=== PATIENT | male | born 1955 | race Caucasian/White ===

== ENCOUNTER 2017-04-09 12:58 | Inpatient (IN) | payer MEDICAID ==
[~2017-04-09] VITALS: Ht 172.7 cm; Wt 80.2 kg
[~2017-04-09 12:58] MED LIST: FLUC100T PO; NAPH1POW3 PO
[2017-04-09 14:18] LABS: BASOPHILS % (AUTO) 0 % (0-1); EOSINOPHILS % (AUTO) 0 % (0-6); HEMATOCRIT 29.2 % (42.0-52.0); HEMOGLOBIN 9.4 g/dl (14.0-17.9); LYMPHOCYTES # (AUTO) 1.1 X10'3 (1.1-4.8); LYMPHOCYTES % (AUTO) 1.8 % (21-51); MEAN CORPUSCULAR HEMOGLOBIN 27.9 PG (27.0-31.0); MEAN CORPUSCULAR HGB CONC 32.1 % (33.0-36.5); MEAN CORPUSCULAR VOLUME 86.9 FL (78-98); MEAN PLATELET VOLUME 7.8 FL (7.4-10.4); MONOCYTES # (AUTO) 0.3 X10'3 (0-0.9); MONOCYTES % (AUTO) 0.5 % (2-12); NEUTROPHILS # (AUTO) 57.1 X10'3 (1.8-7.7); NEUTROPHILS % (AUTO) 97.7 % (42-75); PLATELET COUNT 595 X10'3 (140-440); RED BLOOD COUNT 3.36 X10'6 (4.70-6.10); RED CELL DISTRIBUTION WIDTH 17.1 % (11.5-14.5)
[2017-04-09 14:22] LABS: WHITE BLOOD COUNT 58.5 X10'3 (4.5-11.0)
[2017-04-09 14:24] LABS: INR 1.1 INR; PARTIAL THROMBOPLASTIN TIME 31 SECONDS (22-32); PROTHROMBIN TIME 11.4 SECONDS (9.0-12.0)
[2017-04-09 14:29] LABS: ALANINE AMINOTRANSFERASE 43 U/L (12-78); ALBUMIN 2.1 G/DL (3.4-5.0); ALBUMIN/GLOBULIN RATIO 0.4 (1.1-1.5); ALKALINE PHOSPHATASE 242 IU/L (46-116); ANION GAP 22 (8-16); ASPARTATE AMINO TRANSFERASE 44 U/L (10-37); BILIRUBIN,TOTAL 0.5 MG/DL (0.1-1.0); BLOOD UREA NITROGEN 55 MG/DL (7-18); BUN/CREATININE RATIO 18.9 (5.4-32.0); CALCIUM 9.4 MG/DL (8.5-10.1); CHLORIDE 102 MMOL/L (99-107); CREATININE 2.91 MG/DL (0.60-1.10); GLUCOSE 126 MG/DL (70-104); POTASSIUM 3.2 MMOL/L (3.5-5.1); SODIUM 134 MMOL/L (135-145); TOTAL PROTEIN 7.1 G/DL (6.4-8.2); eGFR 22 ML/MIN
[2017-04-09 14:32] LABS: TOTAL CARBON DIOXIDE 9.7 MMOL/L (24-32)
[2017-04-09] MEDS ORDERED: ondansetron/PF 4mg/2ml inj IV ONE (14:50)
[2017-04-09] MEDS ORDERED: morphine 5 MG/ML injection IV ONE (14:50)
[2017-04-09] MEDS ORDERED: normal saline 1000ML IV soln IV ONE (14:50)
[2017-04-09 14:55] LABS: PLATELET ESTIMATE INCREASED; TOTAL CELLS COUNTED 100
[2017-04-09 14:56] LABS: ANISOCYTOSIS 1+; TOXIC GRANULATION 2+
[2017-04-09 14:59] LABS: ACANTHOCYTES 2+; BURR CELLS FEW; SCHISTOCYTES FEW; TARGET CELLS FEW
[2017-04-09] MEDS ORDERED: piperacillin/tazo 3.375gm/50ml 50 ML IV ONE (15:00)
[2017-04-09] MEDS ORDERED: IBUP-1984 PO (15:47)
[2017-04-09 16:17] LABS: OCCULT BLOOD STOOL NEGATIVE (Neg)
[2017-04-09 16:23] LABS: MAGNESIUM 2.3 MG/DL (1.5-2.4)
[2017-04-09] MEDS: K and/or MAG REPLACEMENT MC SCH (17:00)
[2017-04-09] MEDS ORDERED: acetaminophen 325mg tablet PO PRN (17:00)
[2017-04-09] MEDS ORDERED: HYDROcodone/acetaminophen 5mg/325mg tablet PO PRN (17:00)
[2017-04-09] MEDS ORDERED: diphenhydrAMINE 25mg capsule PO PRN (17:00)
[2017-04-09] MEDS ORDERED: ondansetron/PF 4mg/2ml inj IV PRN ×3 (17:00→23:20)
[2017-04-09] MEDS ORDERED: diphenhydrAMINE 50 mg/ml inj IV PRN (17:00)
[2017-04-09] MEDS ORDERED: potassium Cl 40MEQ/NS 500ml 500 ML IV PRN (17:00)
[2017-04-09] MEDS ORDERED: morphine 5 MG/ML injection IV PRN ×3 (17:00→20:25)
[2017-04-09] MEDS ORDERED: mag hydrox/Alum hydrox/simeth 30ml oral suspension PO PRN (17:00)
[2017-04-09] MEDS ORDERED: acetaminophen 650mg rectal suppository RC PRN (17:00)
[2017-04-09] MEDS ORDERED: potassium Cl 20 mEq SR tablet PO PRN (17:00)
[2017-04-09] MEDS ORDERED: magnesium hydroxide 30ml (MOM) UD suspension PO PRN (17:00)
[2017-04-09] MEDS ORDERED: metoclopramide 5 mg/ml inj IV PRN (17:00)
[2017-04-09] MEDS ORDERED: HYDROcodone/acetaminophen 10/325mg tab PO PRN (17:00)
[2017-04-09] MEDS: normal saline 1000ml 1,000 ML IV SCH (17:32)
[2017-04-09] MEDS: pantoprazole 40 MG vial IV SCH (17:33)
[2017-04-09 17:43] LABS: PHOSPHORUS 4.7 MG/DL (2.3-4.5)
[2017-04-09 18:02] LABS: C-REACTIVE PROTEIN 40.88 MG/DL (0.0-0.5)
[2017-04-09] MEDS: morphine 5 MG/ML injection IV PRN (18:05)
[2017-04-09 18:58] LABS: CLARITY,URINE SLIGHTLY CLOUDY (Clear); COLOR,URINE YELLOW (Yellow); GLUCOSE, URINE NEGATIVE (Neg); KETONES,URINE NEGATIVE (Neg); LEUKOCYTE ESTERASE ,URINE SMALL (Neg); NITRITES, URINE NEGATIVE (Neg); OCCULT BLOOD,URINE MODERATE (Neg); PH,URINE 5.5 (4.8-8.0); PROTEIN,URINE 30 mg/dl (Neg); UROBILINOGEN,URINE 0.2 E.U/dL (0.2-1.0)
[2017-04-09] MEDS ORDERED: MULT-38 PO (19:07)
[2017-04-09] MEDS ORDERED: IBUP-1985 PO (19:07)
[2017-04-09 19:11] LABS: UA COLLECTION TYPE URINAL
[2017-04-09 19:15] LABS: SQUAMOUS EPITHELIAL CELL,UR FEW /LPF (FEW)
[2017-04-09 19:18] LABS: MUCUS STRANDS FEW /LPF (Neg)
[2017-04-09 19:19] LABS: BACTERIA,URINE FEW /HPF (Neg); RBC,URINE 0-2 /HPF (0-2); WBC,URINE 20-30 /HPF (0-4)
[2017-04-09 20:00] VITALS: BP 125/57
[2017-04-09] MEDS ORDERED: piperacillin/tazo 3.375gm/50ml 50 ML IV SCH (20:00)
[2017-04-09] MEDS: docusate sod 100mg capsule PO SCH (20:00)
[2017-04-09] MEDS ORDERED: piperacillin/tazo 4.5gm/100ml 100 ML IV SCH (20:00)
[2017-04-09] MEDS ORDERED: ringers solution, lacted 1,000 ML IV SCH (20:24)
[2017-04-09] MEDS ORDERED: ringers solution, lacted 1,000 ML IV ONE (20:24)
[2017-04-09] MEDS ORDERED: labetalol 20mg/4ml (5mg/ml) syringe IV PRN (20:25)
[2017-04-09] MEDS ORDERED: fentaNYL/PF 50MCG/1 ML 2ML syringe IV PRN ×2 (20:25)
[2017-04-09] MEDS ORDERED: hydrALAZINE 20mg/ml inj. IV PRN (20:25)
[2017-04-09] MEDS: clindamycin 600mg/D5W 50ml 50 ML IV SCH (20:39)
[2017-04-09] MEDS ORDERED: temazepam 15mg capsule PO PRN (21:00)
[2017-04-09] MEDS ORDERED: fentaNYL/PF 50MCG/1 ML 2ML syringe ONE ×2 (21:28)
[2017-04-09] MEDS ORDERED: midazolam 2 mg/2 ml injection ONE (21:28)
[2017-04-09] MEDS ORDERED: sevoflurane 250ml liquid IH ONE ×2 (21:40)
[2017-04-09] MEDS ORDERED: dexamethasone sod phosphate 4mg/ml inj. ONE (21:55)
[2017-04-09 23:05] VITALS: BP 74/60
[2017-04-09 23:15] VITALS: BP 105/56
[2017-04-09] MEDS ORDERED: potassium CL 20mEq in D5-1/2NS 1,000 ML IV SCH (23:17)
[2017-04-09 23:25] VITALS: BP 112/68
[2017-04-09 23:35] VITALS: BP 115/66
[2017-04-10] VITALS (30 sets, daily range): BP systolic 78–116; BP diastolic 52–73
[2017-04-10 00:05] LABS: ABG HCO3 5.3 mmol/L (22.0-26.0); ABG OXYGEN SATURATION 90.9 % (95-98); ABG PCO2 (T) 15.3 mmHg (35.0-48.0); ABG PH (T) 7.145 (7.350-7.450); ABG PO2 (T) 68.1 mmHg (83-108); ALLEN'S TEST Positive; FCOHb 0.3 % (0.5-1.5); FLOW 2 L/min; FMetHb 0.3 % (0.3-1.12); FO2Hb 90.4 % (94-100); PATIENT TEMPERATURE 35.6; RESPIRATORY RATE (OBSERVED) 18 b/min; TOTAL HEMOGLOBIN 9.4 G/dl (14.0-18.0)
[2017-04-10] MEDS ORDERED: potassium Cl 20mEq/100mL bag 100 ML IV ONE (00:33)
[2017-04-10] MEDS ORDERED: piperacillin-tazo 2.25gm/50ml 50 ML IV ONE (00:34)
[2017-04-10 00:46] LABS: BASOPHILS # (AUTO) 0.2 X10'3 (0-0.2); BASOPHILS % (AUTO) 0.4 % (0-1); EOSINOPHILS # (AUTO) 0.1 X10'3 (0-0.9); EOSINOPHILS % (AUTO) 0.2 % (0-6); HEMATOCRIT 27.3 % (42.0-52.0); HEMOGLOBIN 9.3 g/dl (14.0-17.9); MEAN CORPUSCULAR HEMOGLOBIN 29.8 PG (27.0-31.0); MEAN CORPUSCULAR HGB CONC 34.1 % (33.0-36.5); MEAN CORPUSCULAR VOLUME 87.2 FL (78-98); MEAN PLATELET VOLUME 8.4 FL (7.4-10.4); MONOCYTES # (AUTO) 0.9 X10'3 (0-0.9); MONOCYTES % (AUTO) 1.6 % (2-12); NEUTROPHILS # (AUTO) 51.2 X10'3 (1.8-7.7); NEUTROPHILS % (AUTO) 90.8 % (42-75); PLATELET COUNT 492 X10'3 (140-440); RED BLOOD COUNT 3.13 X10'6 (4.70-6.10); RED CELL DISTRIBUTION WIDTH 15.6 % (11.5-14.5)
[2017-04-10 00:52] LABS: WHITE BLOOD COUNT 56.5 X10'3 (4.5-11.0)
[2017-04-10 01:00] LABS: ALANINE AMINOTRANSFERASE 52 U/L (12-78); ALBUMIN 1.6 G/DL (3.4-5.0); ALBUMIN/GLOBULIN RATIO 0.4 (1.1-1.5); ALKALINE PHOSPHATASE 188 IU/L (46-116); ANION GAP 23 (8-16); ASPARTATE AMINO TRANSFERASE 81 U/L (10-37); BILIRUBIN,TOTAL 0.5 MG/DL (0.1-1.0); BLOOD UREA NITROGEN 59 MG/DL (7-18); BUN/CREATININE RATIO 20.5 (5.4-32.0); CALCIUM 8.1 MG/DL (8.5-10.1); CHLORIDE 106 MMOL/L (99-107); CREATININE 2.88 MG/DL (0.60-1.10); GLUCOSE 109 MG/DL (70-104); POTASSIUM 3.2 MMOL/L (3.5-5.1); SODIUM 136 MMOL/L (135-145); TOTAL PROTEIN 5.9 G/DL (6.4-8.2); eGFR 22 ML/MIN
[2017-04-10] MEDS: piperacillin-tazo 2.25gm/50ml 50 ML IV SCH ×3 (01:00→16:23)
[2017-04-10 01:02] LABS: TOTAL CARBON DIOXIDE 7.5 MMOL/L (24-32)
[2017-04-10] MEDS ORDERED: sodium bicarbonate (8.4%) inj. 150 MEQ in dextrose 5%-water 1,000 ML IV SCH (01:05)
[2017-04-10] MEDS ORDERED: sodium bicarbonate (8.4%) 1 mEq/ml syringe IV ONE ×3 (01:05→08:00)
[2017-04-10] MEDS ORDERED: sodium bicarbonate 1 MEQ/1 ml inj ONE (01:09)
[2017-04-10 01:18] LABS: TOTAL CELLS COUNTED 100
[2017-04-10 01:19] LABS: ACANTHOCYTES 1+; ANISOCYTOSIS 1+; BURR CELLS 3+; PLATELET ESTIMATE INCREASED; SCHISTOCYTES FEW; TOXIC GRANULATION 2+
[2017-04-10] MEDS ORDERED: potassium Cl 40MEQ/NS 500ml 500 ML IV PRN ×2 (02:05)
[2017-04-10] MEDS ORDERED: potassium Cl 20 mEq SR tablet PO PRN ×2 (02:05)
[2017-04-10] MEDS ORDERED: potassium Cl 40MEQ/250ML bag 250 ML IV ONE (02:57)
[2017-04-10] MEDS: normal saline 1000ml 1,000 ML IV SCH ×3 (03:00→23:00)
[2017-04-10 04:50] LABS: ABG BASE EXCESS -19.7 mmol/L (-2.0-3.0); ABG HCO3 6.6 mmol/L (22.0-26.0); ABG OXYGEN SATURATION 94.3 % (95-98); ABG PCO2 (T) 17.4 mmHg (35.0-48.0); ABG PH (T) 7.194 (7.350-7.450); ABG PO2 (T) 78.6 mmHg (83-108); ALLEN'S TEST Positive; FCOHb 0.3 % (0.5-1.5); FLOW 2 L/min; PATIENT TEMPERATURE 36.4; RESPIRATORY RATE (OBSERVED) 22 b/min; TOTAL HEMOGLOBIN 8.9 G/dl (14.0-18.0)
[2017-04-10 06:08] LABS: HEMATOCRIT 25.8 % (42.0-52.0); HEMOGLOBIN 8.4 g/dl (14.0-17.9); MEAN CORPUSCULAR HEMOGLOBIN 28.3 PG (27.0-31.0); MEAN CORPUSCULAR HGB CONC 32.4 % (33.0-36.5); MEAN CORPUSCULAR VOLUME 87.4 FL (78-98); PLATELET COUNT 449 X10'3 (140-440); RED BLOOD COUNT 2.95 X10'6 (4.70-6.10); RED CELL DISTRIBUTION WIDTH 16.6 % (11.5-14.5)
[2017-04-10 06:22] LABS: WHITE BLOOD COUNT 53.5 X10'3 (4.5-11.0)
[2017-04-10 07:00] LABS: ALANINE AMINOTRANSFERASE 84 U/L (12-78); ALBUMIN 1.4 G/DL (3.4-5.0); ALBUMIN/GLOBULIN RATIO 0.4 (1.1-1.5); ALKALINE PHOSPHATASE 158 IU/L (46-116); ANION GAP 24 (8-16); ASPARTATE AMINO TRANSFERASE 141 U/L (10-37); BILIRUBIN,TOTAL 0.5 MG/DL (0.1-1.0); BLOOD UREA NITROGEN 62 MG/DL (7-18); BUN/CREATININE RATIO 21.5 (5.4-32.0); CALCIUM 7.4 MG/DL (8.5-10.1); CHLORIDE 108 MMOL/L (99-107); CREATININE 2.88 MG/DL (0.60-1.10); GLUCOSE 151 MG/DL (70-104); MAGNESIUM 2.3 MG/DL (1.5-2.4); POTASSIUM 3.5 MMOL/L (3.5-5.1); SODIUM 142 MMOL/L (135-145); TOTAL PROTEIN 5.4 G/DL (6.4-8.2); eGFR 22 ML/MIN
[2017-04-10 07:19] LABS: TOTAL CARBON DIOXIDE 10.5 MMOL/L (24-32)
[2017-04-10] MEDS ORDERED: albumin (human) 25% 100 ML IV solution IV ONE (07:45)
[2017-04-10 07:50] LABS: OSMOLALITY 311 MOSM/K (280-300)
[2017-04-10 07:52] LABS: ANISOCYTOSIS 1+; BANDS% (MANUAL) 26 % (0-10); LYMPHOCYTES % (MANUAL) 1 % (21-51); METAMYLEOCYTES% (MANUAL) 2 % (0-0); MONOCYTES % (MANUAL) 1 % (2-12); NEUTROPHILS % (MANUAL) 70 % (42-75); PLATELET ESTIMATE INCREASED; TOTAL CELLS COUNTED 100
[2017-04-10 07:53] LABS: BURR CELLS 2+; TOXIC GRANULATION 1+
[2017-04-10] MEDS: K and/or MAG REPLACEMENT MC SCH ×2 (08:00)
[2017-04-10] MEDS ORDERED: vancomycin/NS 1 GM ADD-VANTAGE 250 ML IV SCH (08:00)
[2017-04-10] MEDS: clindamycin 600mg/D5W 50ml 50 ML IV SCH ×2 (08:21→20:30)
[2017-04-10] MEDS: docusate sod 100mg capsule PO SCH ×2 (08:21→20:30)
[2017-04-10] MEDS: pantoprazole 40 MG vial IV SCH (08:21)
[2017-04-10] MEDS: amiodarone/D5 360MG/200ML BAG 200 ML IV SCH ×3 (09:40→21:39)
[2017-04-10] MEDS: sodium bicarbonate (8.4%) inj. 150 MEQ in dextrose 5%-water 1,000 ML IV SCH ×3 (10:26→19:18)
[2017-04-10] MEDS ORDERED: fluconazole-Diflucan 200mg/NS 100 ML IV SCH (12:25)
[2017-04-10] MEDS ORDERED: albumin (Human) 5% 250 ML IV solution IV STA (12:43)
[2017-04-10] MEDS: morphine 5 MG/ML injection IV PRN (14:31)
[2017-04-10] MEDS ORDERED: pneumococcal 23-VAL P-sac vacc 25 mcg/0.5ml vial IMVAC ONE (14:45)
[2017-04-10] MEDS ORDERED: vancomycin/NS 1 GM ADD-VANTAGE 250 ML IV PRN (14:50)
[2017-04-10] MEDS ORDERED: FLU VACC QS2017-18 36MOS UP/PF 60 MCG/0.5 ML SYRINGE IMVAC ONE (15:10)
[2017-04-10] MEDS: linezolid 600mg/300ml PREMIX 300 ML IV SCH ×2 (16:23→20:30)
[2017-04-10] MEDS: NORepinephrine 8mg/ 250ml NS 250 ML IV SCH ×2 (16:54→22:23)
[2017-04-10 17:16] LABS: ABG BASE EXCESS -10.4 mmol/L (-2.0-3.0); ABG HCO3 13.2 mmol/L (22.0-26.0); ABG OXYGEN SATURATION 94.6 % (95-98); ABG PCO2 (T) 21.3 mmHg (35.0-48.0); ABG PH (T) 7.409 (7.350-7.450); ABG PO2 (T) 72.1 mmHg (83-108); ALLEN'S TEST Positive; FCOHb 0.5 % (0.5-1.5); FMetHb 0.1 % (0.3-1.12); PATIENT TEMPERATURE 36.6
[2017-04-10 17:25] LABS: BASOPHILS % (AUTO) 0.1 % (0-1); EOSINOPHILS % (AUTO) 0 % (0-6); LYMPHOCYTES # (AUTO) 1.4 X10'3 (1.1-4.8); LYMPHOCYTES % (AUTO) 4.3 % (21-51); MEAN CORPUSCULAR HEMOGLOBIN 27.9 PG (27.0-31.0); MEAN CORPUSCULAR HGB CONC 32.6 % (33.0-36.5); MEAN CORPUSCULAR VOLUME 85.8 FL (78-98); MEAN PLATELET VOLUME 7.5 FL (7.4-10.4); MONOCYTES # (AUTO) 0.1 X10'3 (0-0.9); MONOCYTES % (AUTO) 0.2 % (2-12); NEUTROPHILS # (AUTO) 30.4 X10'3 (1.8-7.7); NEUTROPHILS % (AUTO) 95.4 % (42-75); PLATELET COUNT 361 X10'3 (140-440); RED CELL DISTRIBUTION WIDTH 16.8 % (11.5-14.5)
[2017-04-10 17:31] LABS: HEMATOCRIT 21.4 % (42.0-52.0); WHITE BLOOD COUNT 31.9 X10'3 (4.5-11.0)
[2017-04-10 17:39] LABS: ALANINE AMINOTRANSFERASE 80 U/L (12-78); ALBUMIN 2.1 G/DL (3.4-5.0); ALBUMIN/GLOBULIN RATIO 0.6 (1.1-1.5); ALKALINE PHOSPHATASE 126 IU/L (46-116); ANION GAP 21 (8-16); ASPARTATE AMINO TRANSFERASE 134 U/L (10-37); BILIRUBIN,TOTAL 0.5 MG/DL (0.1-1.0); BLOOD UREA NITROGEN 66 MG/DL (7-18); BUN/CREATININE RATIO 22.7 (5.4-32.0); CALCIUM 6.5 MG/DL (8.5-10.1); CHLORIDE 110 MMOL/L (99-107); CREATININE 2.91 MG/DL (0.60-1.10); GLUCOSE 247 MG/DL (70-104); MAGNESIUM 2.2 MG/DL (1.5-2.4); SODIUM 148 MMOL/L (135-145); TOTAL CARBON DIOXIDE 17.3 MMOL/L (24-32); TOTAL PROTEIN 5.4 G/DL (6.4-8.2); eGFR 22 ML/MIN
[2017-04-10 17:42] LABS: POTASSIUM 2.6 MMOL/L (3.5-5.1)
[2017-04-10] MEDS ORDERED: NORepinephrine 1 mg/ml inj IV ONE (18:35)
[2017-04-10] MEDS: vasopressin inj. 60 UNIT in normal saline 100ml IV soln 97 ML IV SCH (19:18)
[2017-04-10] MEDS: potassium Cl 40MEQ/250ML bag 250 ML IV PRN ×2 (19:37→21:39)
[2017-04-10 22:56] LABS: ABG BASE EXCESS -10.6 mmol/L (-2.0-3.0); ABG HCO3 13.1 mmol/L (22.0-26.0); ABG OXYGEN SATURATION 92.5 % (95-98); ABG PH (T) 7.372 (7.350-7.450); ABG PO2 (T) 66.9 mmHg (83-108); ALLEN'S TEST Positive; FCOHb 0.3 % (0.5-1.5); FO2Hb 92.2 % (94-100); RESPIRATORY RATE (OBSERVED) 18 b/min
[2017-04-11] VITALS (24 sets, daily range): BP systolic 99–132; BP diastolic 64–87
[2017-04-11] MEDS: piperacillin-tazo 2.25gm/50ml 50 ML IV SCH ×2 (01:50→07:58)
[2017-04-11 02:40] LABS: BASOPHILS % (AUTO) 0 % (0-1); EOSINOPHILS # (AUTO) 0.4 X10'3 (0-0.9); EOSINOPHILS % (AUTO) 1.5 % (0-6); HEMATOCRIT 29.2 % (42.0-52.0); HEMOGLOBIN 9.6 g/dl (14.0-17.9); LYMPHOCYTES # (AUTO) 0.6 X10'3 (1.1-4.8); LYMPHOCYTES % (AUTO) 2.2 % (21-51); MEAN CORPUSCULAR HEMOGLOBIN 27.8 PG (27.0-31.0); MEAN CORPUSCULAR HGB CONC 32.8 % (33.0-36.5); MEAN CORPUSCULAR VOLUME 84.8 FL (78-98); MEAN PLATELET VOLUME 8.3 FL (7.4-10.4); MONOCYTES # (AUTO) 0.3 X10'3 (0-0.9); MONOCYTES % (AUTO) 0.9 % (2-12); NEUTROPHILS # (AUTO) 27.5 X10'3 (1.8-7.7); NEUTROPHILS % (AUTO) 95.4 % (42-75); PLATELET COUNT 352 X10'3 (140-440); RED BLOOD COUNT 3.44 X10'6 (4.70-6.10); RED CELL DISTRIBUTION WIDTH 17.2 % (11.5-14.5)
[2017-04-11 02:55] LABS: ALANINE AMINOTRANSFERASE 115 U/L (12-78); ALBUMIN 2.1 G/DL (3.4-5.0); ALBUMIN/GLOBULIN RATIO 0.6 (1.1-1.5); ALKALINE PHOSPHATASE 160 IU/L (46-116); ANION GAP 19 (8-16); ASPARTATE AMINO TRANSFERASE 153 U/L (10-37); BILIRUBIN,TOTAL 0.7 MG/DL (0.1-1.0); BLOOD UREA NITROGEN 65 MG/DL (7-18); BUN/CREATININE RATIO 24.2 (5.4-32.0); CALCIUM 6.5 MG/DL (8.5-10.1); CHLORIDE 109 MMOL/L (99-107); CREATININE 2.69 MG/DL (0.60-1.10); GLUCOSE 389 MG/DL (70-104); MAGNESIUM 2.3 MG/DL (1.5-2.4); SODIUM 144 MMOL/L (135-145); TOTAL CARBON DIOXIDE 16.4 MMOL/L (24-32); TOTAL PROTEIN 5.7 G/DL (6.4-8.2); VANCOMYCIN,RANDOM 18.2 UG/ML; eGFR 24 ML/MIN
[2017-04-11 02:59] LABS: WHITE BLOOD COUNT 28.9 X10'3 (4.5-11.0)
[2017-04-11] MEDS: VANCOMYCIN LEVEL IV SCH (03:00)
[2017-04-11] MEDS ORDERED: potassium Cl 40MEQ/250ML bag 500 ML IV ONE (03:02)
[2017-04-11 03:09] LABS: TOTAL CELLS COUNTED 100
[2017-04-11 03:10] LABS: ANISOCYTOSIS 1+; BURR CELLS 1+; PLATELET ESTIMATE NORMAL; TARGET CELLS 1+; TOXIC GRANULATION 1+
[2017-04-11] MEDS: sodium bicarbonate (8.4%) inj. 150 MEQ in dextrose 5%-water 1,000 ML IV SCH ×2 (03:10→12:16)
[2017-04-11] MEDS: potassium Cl 40MEQ/250ML bag 250 ML IV PRN (05:23)
[2017-04-11] MEDS: NORepinephrine 8mg/ 250ml NS 250 ML IV SCH (05:24)
[2017-04-11] MEDS: pantoprazole 40 MG vial IV SCH (07:57)
[2017-04-11] MEDS: linezolid 600mg/300ml PREMIX 300 ML IV SCH (07:58)
[2017-04-11] MEDS: clindamycin 600mg/D5W 50ml 50 ML IV SCH (07:58)
[2017-04-11] MEDS: K and/or MAG REPLACEMENT MC SCH (08:00)
[2017-04-11] MEDS: docusate sod 100mg capsule PO SCH ×2 (08:00→20:32)
[2017-04-11] MEDS ORDERED: fluconazole-Diflucan 100MG/NS 50 ML IV SCH (08:00)
[2017-04-11] MEDS: piperacillin/tazo 3.375gm/50ml 50 ML IV SCH ×2 (08:20→16:05)
[2017-04-11] MEDS: morphine 5 MG/ML injection IV PRN ×3 (08:37→20:32)
[2017-04-11] MEDS: amiodarone/D5 360MG/200ML BAG 200 ML IV SCH ×2 (08:38→23:26)
[2017-04-11] MEDS ORDERED: glucagon, human recombinant 1mg kit SUBCUT PRN (11:25)
[2017-04-11] MEDS ORDERED: insulin Lispro (HumaLOG) vial - multi-dose SQ SCH (11:25)
[2017-04-11] MEDS ORDERED: dextrose 50%-water 50ml dispensing syringe IV PRN ×2 (11:25)
[2017-04-11] MEDS ORDERED: dextrose ORAL solution 15 GM/59 ML bottle PO PRN ×2 (11:25)
[2017-04-11] MEDS ORDERED: HYDROmorphone 1 mg/ml syringe IV PRN ×2 (13:30→19:55)
[2017-04-11] MEDS ORDERED: LIDOcaine 1% (10mg/ml) 2ml vial ONE (14:32)
[2017-04-11] MEDS ORDERED: clindamycin phosphate 150mg/ml inj. ONE (14:32)
[2017-04-11] MEDS ORDERED: gentamicin 40 MG/1 ML inj ONE (14:32)
[2017-04-11] MEDS: clindamycin-Cleocin 900mg/D5W 50 ML IV SCH ×2 (15:21→16:00)
[2017-04-11] MEDS: normal saline 1000ml 1,000 ML IV SCH (16:05)
[2017-04-11 16:31] LABS: HEMOGLOBIN A1C 6.4 % (4.5-6.2)
[2017-04-11] MEDS: vasopressin inj. 60 UNIT in normal saline 100ml IV soln 97 ML IV SCH (16:36)
[2017-04-11 16:57] LABS: HIV ANTIBODY 1&2 RAPID NON-REACTIVE (Neg)
[2017-04-11] MEDS ORDERED: albuterol 2.5 MG/3 ML nebule NEB ONE (17:05)
[2017-04-11 17:30] LABS: POTASSIUM 2.8 MMOL/L (3.5-5.1)
[2017-04-11] MEDS ORDERED: furosemide 20 MG/2 ML vial IV ONE (17:50)
[2017-04-11 18:16] LABS: CREATINE KINASE 653 U/L (39-308)
[2017-04-11] MEDS ORDERED: fat emulsion IV 100 ML, MVI, adult No.4 with vit. K 10 ML, Trace element-5 inj. 1 ML in... IV SCH ×4 (20:00)
[2017-04-11] MEDS ORDERED: morphine 5 MG/ML injection IV PRN (20:10)
[2017-04-11] MEDS: potassium Cl 20 mEq SR tablet PO PRN (20:32)
[2017-04-11] MEDS: lactobacillus rhamnosus 10,000 MMU CELLS/CAPSULE PO SCH (20:32)
[2017-04-11] MEDS: insulin glargine (Lantus) pen - multi-dose SQ SCH (22:33)
[2017-04-12] VITALS (21 sets, daily range): BP systolic 90–139; BP diastolic 61–89
[2017-04-12] MEDS: piperacillin/tazo 3.375gm/50ml 50 ML IV SCH ×3 (00:35→15:12)
[2017-04-12] MEDS: clindamycin-Cleocin 900mg/D5W 50 ML IV SCH ×3 (00:36→15:13)
[2017-04-12 02:57] LABS: BASOPHILS % (AUTO) 0 % (0-1); EOSINOPHILS % (AUTO) 0.1 % (0-6); HEMATOCRIT 27.5 % (42.0-52.0); LYMPHOCYTES % (AUTO) 5.1 % (21-51); MEAN CORPUSCULAR HEMOGLOBIN 27.8 PG (27.0-31.0); MEAN CORPUSCULAR HGB CONC 32.7 % (33.0-36.5); MEAN CORPUSCULAR VOLUME 84.9 FL (78-98); MEAN PLATELET VOLUME 8.4 FL (7.4-10.4); MONOCYTES % (AUTO) 0.1 % (2-12); NEUTROPHILS # (AUTO) 19.1 X10'3 (1.8-7.7); NEUTROPHILS % (AUTO) 94.7 % (42-75); PLATELET COUNT 283 X10'3 (140-440); RED BLOOD COUNT 3.23 X10'6 (4.70-6.10); WHITE BLOOD COUNT 20.2 X10'3 (4.5-11.0)
[2017-04-12] MEDS: VANCOMYCIN LEVEL IV SCH (03:00)
[2017-04-12 03:11] LABS: ALANINE AMINOTRANSFERASE 166 U/L (12-78); ALBUMIN 1.8 G/DL (3.4-5.0); ALBUMIN/GLOBULIN RATIO 0.5 (1.1-1.5); ALKALINE PHOSPHATASE 172 IU/L (46-116); ANION GAP 14 (8-16); ASPARTATE AMINO TRANSFERASE 138 U/L (10-37); BILIRUBIN,TOTAL 0.4 MG/DL (0.1-1.0); BLOOD UREA NITROGEN 55 MG/DL (7-18); BUN/CREATININE RATIO 25.3 (5.4-32.0); CALCIUM 7.3 MG/DL (8.5-10.1); CHLORIDE 114 MMOL/L (99-107); CREATININE 2.17 MG/DL (0.60-1.10); GLUCOSE 131 MG/DL (70-104); MAGNESIUM 2.2 MG/DL (1.5-2.4); PHOSPHORUS 3.7 MG/DL (2.3-4.5); SODIUM 151 MMOL/L (135-145); TOTAL CARBON DIOXIDE 22.6 MMOL/L (24-32); TOTAL PROTEIN 5.4 G/DL (6.4-8.2); VANCOMYCIN,RANDOM 10.5 UG/ML; eGFR 31 ML/MIN
[2017-04-12 03:13] LABS: POTASSIUM 2.6 MMOL/L (3.5-5.1)
[2017-04-12] MEDS: potassium Cl 20 mEq SR tablet PO PRN (03:27)
[2017-04-12] MEDS: insulin regular, human vial - multi-dose SQ SCH ×3 (03:53→20:51)
[2017-04-12 04:18] LABS: ANISOCYTOSIS 1+; PLATELET ESTIMATE NORMAL; TOTAL CELLS COUNTED 100
[2017-04-12 04:19] LABS: BURR CELLS 1+; TARGET CELLS 1+; TOXIC GRANULATION 1+
[2017-04-12] MEDS: normal saline 1000ml 1,000 ML IV SCH ×2 (05:00→05:04)
[2017-04-12] MEDS: morphine 5 MG/ML injection IV PRN (05:41)
[2017-04-12] MEDS: pantoprazole 40 MG vial IV SCH (07:38)
[2017-04-12] MEDS: lactobacillus rhamnosus 10,000 MMU CELLS/CAPSULE PO SCH ×2 (07:38→20:00)
[2017-04-12] MEDS: docusate sod 100mg capsule PO SCH ×2 (07:38→20:00)
[2017-04-12] MEDS: K and/or MAG REPLACEMENT MC SCH (08:00)
[2017-04-12] MEDS: potassium Cl 40MEQ/NS 500ml 500 ML IV PRN ×2 (08:16→13:00)
[2017-04-12] MEDS ORDERED: vancomycin/NS 1 GM ADD-VANTAGE 250 ML IV ONE (09:25)
[2017-04-12 09:41] LABS: ABG BASE EXCESS -4.7 mmol/L (-2.0-3.0); ABG HCO3 18.3 mmol/L (22.0-26.0); ABG OXYGEN SATURATION 93.3 % (95-98); ABG PCO2 (T) 26.7 mmHg (35.0-48.0); ABG PH (T) 7.451 (7.350-7.450); ABG PO2 (T) 69.2 mmHg (83-108); ALLEN'S TEST Positive; FCOHb 0.3 % (0.5-1.5); FMetHb 0.1 % (0.3-1.12); FO2Hb 92.9 % (94-100); PATIENT TEMPERATURE 36.6; RESPIRATORY RATE (OBSERVED) 18 b/min; TOTAL HEMOGLOBIN 10.4 G/dl (14.0-18.0)
[2017-04-12 12:53] LABS: POTASSIUM 3.1 MMOL/L (3.5-5.1)
[2017-04-12] MEDS ORDERED: gentamicin 40 MG/1 ML inj ONE (16:15)
[2017-04-12] MEDS ORDERED: clindamycin phosphate 150mg/ml inj. ONE (16:15)
[2017-04-12] MEDS ORDERED: morphine sulfate 8 MG/ML SYRINGE IV PRN (16:25)
[2017-04-12] MEDS ORDERED: Dextrose 10%-water IV solution 1,000 ML IV PRN (16:38)
[2017-04-12] MEDS: morphine sulfate 8 MG/ML SYRINGE IV PRN ×2 (16:46→22:15)
[2017-04-12] MEDS ORDERED: [UNRECOGNIZED DRUG - REMARK] IV SCH ×4 (16:55)
[2017-04-12] MEDS ORDERED: diphenhydrAMINE 50 mg/ml inj IV PRN (18:15)
[2017-04-12 18:23] LABS: PREALBUMIN 7.7 MG/DL (19-36)
[2017-04-12] MEDS: insulin glargine (Lantus) pen - multi-dose SQ SCH (20:50)
[2017-04-12] MEDS: potassium Cl 40MEQ/250ML bag 250 ML IV PRN (22:14)
[2017-04-12] MEDS ORDERED: LIDOcaine 1% (10mg/ml) 2ml vial ONE (23:16)
[2017-04-12] MEDS ORDERED: sevoflurane 250ml liquid IH ONE (23:31)
[2017-04-12] MEDS ORDERED: fentaNYL /PF 50mcg/ml 5ml ampule ONE (23:37)
[2017-04-12] MEDS ORDERED: rocuronium 10mg/ml inj IV ONE (23:39)
[2017-04-12] MEDS ORDERED: propofol inj 20 ML IV ONE (23:39)
[2017-04-13] VITALS (27 sets, daily range): BP systolic 84–154; BP diastolic 51–94
[2017-04-13] MEDS ORDERED: ringers solution, lacted 1,000 ML IV SCH (00:41)
[2017-04-13] MEDS ORDERED: ondansetron/PF 4mg/2ml inj IV PRN (00:45)
[2017-04-13] MEDS: normal saline 1000ml 1,000 ML IV SCH ×4 (01:00→21:00)
[2017-04-13] MEDS ORDERED: rocuronium 10mg/ml inj IV ONE (01:12)
[2017-04-13] MEDS ORDERED: fentaNYL/NS/PF 2,500mcg/250ml 250 ML IV PRN (01:40)
[2017-04-13] MEDS ORDERED: propofol 1000mg/100ml bottle 100 ML IV PRN (01:40)
[2017-04-13] MEDS ORDERED: propofol 1000mg/100ml bottle 100 ML IV ONE (02:01)
[2017-04-13 02:41] LABS: ABG BASE EXCESS -7.7 mmol/L (-2.0-3.0); ABG HCO3 20.1 mmol/L (22.0-26.0); ABG OXYGEN SATURATION 94.9 % (95-98); ABG PH (T) 7.218 (7.350-7.450); ABG PO2 (T) 89.6 mmHg (83-108); FCOHb 0.3 % (0.5-1.5); FMetHb 0.2 % (0.3-1.12); FO2Hb 94.4 % (94-100); MINUTE VOLUME 9 L/min; PATIENT TEMPERATURE 36.4; PEEP 5 cm H2O; RESPIRATORY RATE 16 b/min; RESPIRATORY RATE (OBSERVED) 16 b/min; TIDAL VOLUME 500 mL; TOTAL HEMOGLOBIN 10.5 G/dl (14.0-18.0)
[2017-04-13] MEDS: VANCOMYCIN LEVEL IV SCH (03:00)
[2017-04-13 03:25] LABS: BASOPHILS % (AUTO) 0.1 % (0-1); EOSINOPHILS % (AUTO) 0.1 % (0-6); HEMATOCRIT 29.5 % (42.0-52.0); HEMOGLOBIN 9.6 g/dl (14.0-17.9); LYMPHOCYTES # (AUTO) 1.1 X10'3 (1.1-4.8); MEAN CORPUSCULAR HEMOGLOBIN 27.8 PG (27.0-31.0); MEAN CORPUSCULAR HGB CONC 32.7 % (33.0-36.5); MEAN CORPUSCULAR VOLUME 85.1 FL (78-98); MEAN PLATELET VOLUME 8.5 FL (7.4-10.4); MONOCYTES # (AUTO) 0.2 X10'3 (0-0.9); MONOCYTES % (AUTO) 1.1 % (2-12); NEUTROPHILS # (AUTO) 19.9 X10'3 (1.8-7.7); NEUTROPHILS % (AUTO) 93.7 % (42-75); PLATELET COUNT 250 X10'3 (140-440); RED BLOOD COUNT 3.47 X10'6 (4.70-6.10); RED CELL DISTRIBUTION WIDTH 17.6 % (11.5-14.5); WHITE BLOOD COUNT 21.3 X10'3 (4.5-11.0)
[2017-04-13 03:39] LABS: ALANINE AMINOTRANSFERASE 184 U/L (12-78); ALBUMIN 1.8 G/DL (3.4-5.0); ALBUMIN/GLOBULIN RATIO 0.5 (1.1-1.5); ALKALINE PHOSPHATASE 205 IU/L (46-116); ANION GAP 11 (8-16); ASPARTATE AMINO TRANSFERASE 130 U/L (10-37); BILIRUBIN,TOTAL 0.4 MG/DL (0.1-1.0); BLOOD UREA NITROGEN 45 MG/DL (7-18); BUN/CREATININE RATIO 24.9 (5.4-32.0); CALCIUM 8.1 MG/DL (8.5-10.1); CHLORIDE 118 MMOL/L (99-107); CREATININE 1.81 MG/DL (0.60-1.10); GLUCOSE 198 MG/DL (70-104); MAGNESIUM 2.1 MG/DL (1.5-2.4); PHOSPHORUS 5.3 MG/DL (2.3-4.5); POTASSIUM 3.6 MMOL/L (3.5-5.1); SODIUM 151 MMOL/L (135-145); TOTAL CARBON DIOXIDE 21.9 MMOL/L (24-32); TOTAL PROTEIN 5.6 G/DL (6.4-8.2); VANCOMYCIN,RANDOM 14.3 UG/ML; eGFR 38 ML/MIN
[2017-04-13] MEDS: FENTANYL-0.9 % NACL/PF 250 ML IV PRN ×2 (03:56→22:40)
[2017-04-13] MEDS: piperacillin/tazo 3.375gm/50ml 50 ML IV SCH ×2 (03:57→08:18)
[2017-04-13] MEDS: clindamycin-Cleocin 900mg/D5W 50 ML IV SCH ×2 (03:57→08:18)
[2017-04-13] MEDS: insulin regular, human vial - multi-dose SQ SCH ×3 (04:19→21:29)
[2017-04-13] MEDS: [UNRECOGNIZED DRUG - REMARK] IV SCH (04:22)
[2017-04-13 04:31] LABS: ABG BASE EXCESS -7.1 mmol/L (-2.0-3.0); ABG HCO3 17.7 mmol/L (22.0-26.0); ABG OXYGEN SATURATION 98.4 % (95-98); ABG PCO2 (T) 32.1 mmHg (35.0-48.0); ABG PH (T) 7.357 (7.350-7.450); ABG PO2 (T) 166.8 mmHg (83-108); FCOHb 0.3 % (0.5-1.5); FMetHb 0.3 % (0.3-1.12); FO2Hb 97.8 % (94-100); MINUTE VOLUME 11 L/min; PATIENT TEMPERATURE 36.4; PEEP 5 cm H2O; RESPIRATORY RATE 20 b/min; RESPIRATORY RATE (OBSERVED) 20 b/min; TIDAL VOLUME 500 mL; TOTAL HEMOGLOBIN 9.6 G/dl (14.0-18.0)
[2017-04-13 04:48] LABS: ANISOCYTOSIS 2+; NUCLEATED RED BLOOD CELLS 1 /100WBC (0-0); PLATELET ESTIMATE NORMAL; TOTAL CELLS COUNTED 100
[2017-04-13 04:49] LABS: BURR CELLS FEW; POLYCHROMASIA FEW; TARGET CELLS 1+; TOXIC GRANULATION 1+
[2017-04-13] MEDS: lactobacillus rhamnosus 10,000 MMU CELLS/CAPSULE PO SCH ×2 (08:00→21:26)
[2017-04-13] MEDS: docusate sod 100mg capsule PO SCH ×2 (08:00→20:00)
[2017-04-13] MEDS: pantoprazole 40 MG vial IV SCH (08:17)
[2017-04-13 08:51] LABS: ABG BASE EXCESS -7.3 mmol/L (-2.0-3.0); ABG HCO3 17.3 mmol/L (22.0-26.0); ABG OXYGEN SATURATION 98.3 % (95-98); ABG PCO2 (T) 31.4 mmHg (35.0-48.0); ABG PH (T) 7.359 (7.350-7.450); ABG PO2 (T) 145.5 mmHg (83-108); FCOHb 0.3 % (0.5-1.5); FMetHb 0.2 % (0.3-1.12); FO2Hb 97.8 % (94-100); MINUTE VOLUME 12 L/min; PATIENT TEMPERATURE 36.9; PEEP 5 cm H2O; RESPIRATORY RATE 20 b/min; RESPIRATORY RATE (OBSERVED) 21 b/min; TIDAL VOLUME 500 mL; TOTAL HEMOGLOBIN 9.6 G/dl (14.0-18.0)
[2017-04-13] MEDS ORDERED: vancomycin/NS 1 GM ADD-VANTAGE 250 ML IV ONE (08:55)
[2017-04-13 09:13] LABS: ALANINE AMINOTRANSFERASE 176 U/L (12-78); ALBUMIN 1.6 G/DL (3.4-5.0); ALBUMIN/GLOBULIN RATIO 0.4 (1.1-1.5); ALKALINE PHOSPHATASE 189 IU/L (46-116); ANION GAP 13 (8-16); ASPARTATE AMINO TRANSFERASE 113 U/L (10-37); BILIRUBIN,TOTAL 0.4 MG/DL (0.1-1.0); BLOOD UREA NITROGEN 46 MG/DL (7-18); BUN/CREATININE RATIO 26.3 (5.4-32.0); CHLORIDE 121 MMOL/L (99-107); CREATININE 1.75 MG/DL (0.60-1.10); GLUCOSE 131 MG/DL (70-104); POTASSIUM 3.2 MMOL/L (3.5-5.1); SODIUM 154 MMOL/L (135-145); TOTAL CARBON DIOXIDE 19.8 MMOL/L (24-32); TOTAL PROTEIN 5.3 G/DL (6.4-8.2); eGFR 40 ML/MIN
[2017-04-13] MEDS: morphine sulfate 8 MG/ML SYRINGE IV PRN (09:30)
[2017-04-13] MEDS: furosemide 20 MG/2 ML vial IV SCH ×2 (10:19→16:18)
[2017-04-13 10:56] LABS: HIV ANTIBODY 1&2 RAPID NON-REACTIVE (Neg)
[2017-04-13] MEDS: ampicillin/sulbac 3gm/NS 100ml 100 ML IV SCH (11:38)
[2017-04-13] MEDS: NORepinephrine 8mg/ 250ml NS 250 ML IV SCH (11:44)
[2017-04-13] MEDS: amiodarone/D5 360MG/200ML BAG 200 ML IV SCH (11:45)
[2017-04-13] MEDS: Dakins solution (1/4 strength) 473ml solution TP SCH (16:19)
[2017-04-13] MEDS: potassium Cl 40MEQ/250ML bag 250 ML IV PRN (16:19)
[2017-04-13] MEDS: insulin glargine (Lantus) pen - multi-dose SQ SCH (21:28)
[2017-04-14] VITALS (23 sets, daily range): BP systolic 99–128; BP diastolic 43–78
[2017-04-14] MEDS: morphine sulfate 8 MG/ML SYRINGE IV PRN (00:09)
[2017-04-14] MEDS: furosemide 20 MG/2 ML vial IV SCH ×2 (00:29→08:04)
[2017-04-14] MEDS: ampicillin/sulbac 3gm/NS 100ml 100 ML IV SCH ×3 (00:29→17:50)
[2017-04-14] MEDS: amiodarone/D5 360MG/200ML BAG 200 ML IV SCH ×2 (00:46→21:24)
[2017-04-14 02:43] LABS: ALANINE AMINOTRANSFERASE 196 U/L (12-78); ALBUMIN 1.5 G/DL (3.4-5.0); ALBUMIN/GLOBULIN RATIO 0.4 (1.1-1.5); ALKALINE PHOSPHATASE 210 IU/L (46-116); ANION GAP 13 (8-16); ASPARTATE AMINO TRANSFERASE 118 U/L (10-37); BILIRUBIN,TOTAL 0.3 MG/DL (0.1-1.0); BLOOD UREA NITROGEN 40 MG/DL (7-18); BUN/CREATININE RATIO 25.3 (5.4-32.0); CALCIUM 8.3 MG/DL (8.5-10.1); CHLORIDE 120 MMOL/L (99-107); CREATININE 1.58 MG/DL (0.60-1.10); GLUCOSE 86 MG/DL (70-104); MAGNESIUM 1.7 MG/DL (1.5-2.4); TOTAL CARBON DIOXIDE 21.9 MMOL/L (24-32); TOTAL PROTEIN 5.5 G/DL (6.4-8.2); VANCOMYCIN,RANDOM 15.3 UG/ML; eGFR 45 ML/MIN
[2017-04-14 02:46] LABS: SODIUM 155 MMOL/L (135-145)
[2017-04-14 02:47] LABS: POTASSIUM 2.6 MMOL/L (3.5-5.1)
[2017-04-14 02:57] LABS: BASOPHILS % (AUTO) 0 % (0-1); EOSINOPHILS # (AUTO) 0.4 X10'3 (0-0.9); HEMATOCRIT 29.2 % (42.0-52.0); HEMOGLOBIN 9.5 g/dl (14.0-17.9); LYMPHOCYTES # (AUTO) 1.1 X10'3 (1.1-4.8); MEAN CORPUSCULAR HEMOGLOBIN 27.6 PG (27.0-31.0); MEAN CORPUSCULAR HGB CONC 32.4 % (33.0-36.5); MEAN CORPUSCULAR VOLUME 84.9 FL (78-98); MONOCYTES % (AUTO) 0.1 % (2-12); NEUTROPHILS % (AUTO) 92.9 % (42-75); PLATELET COUNT 239 X10'3 (140-440); RED BLOOD COUNT 3.44 X10'6 (4.70-6.10); RED CELL DISTRIBUTION WIDTH 17.6 % (11.5-14.5); WHITE BLOOD COUNT 21.5 X10'3 (4.5-11.0)
[2017-04-14] MEDS: VANCOMYCIN LEVEL IV SCH (03:00)
[2017-04-14] MEDS: potassium Cl 40MEQ/250ML bag 250 ML IV PRN ×4 (04:02→21:19)
[2017-04-14] MEDS: [UNRECOGNIZED DRUG - REMARK] IV SCH (04:03)
[2017-04-14 04:31] LABS: ABG BASE EXCESS -5.2 mmol/L (-2.0-3.0); ABG HCO3 17.9 mmol/L (22.0-26.0); ABG OXYGEN SATURATION 97.1 % (95-98); ABG PCO2 (T) 27.3 mmHg (35.0-48.0); ABG PH (T) 7.435 (7.350-7.450); ABG PO2 (T) 98.3 mmHg (83-108); FCOHb 0.3 % (0.5-1.5); FMetHb 0.3 % (0.3-1.12); FO2Hb 96.5 % (94-100); MINUTE VOLUME 11 L/min; PEEP 5 cm H2O; RESPIRATORY RATE 20 b/min; RESPIRATORY RATE (OBSERVED) 20 b/min; TIDAL VOLUME 500 mL; TOTAL HEMOGLOBIN 10.1 G/dl (14.0-18.0)
[2017-04-14 05:03] LABS: TOTAL CELLS COUNTED 100
[2017-04-14 05:04] LABS: ANISOCYTOSIS 2+; PLATELET ESTIMATE NORMAL; POLYCHROMASIA FEW; TARGET CELLS 1+
[2017-04-14 05:06] LABS: BURR CELLS FEW; TOXIC GRANULATION 1+
[2017-04-14] MEDS: Dakins solution (1/4 strength) 473ml solution TP SCH ×3 (06:52→20:46)
[2017-04-14] MEDS: normal saline 1000ml 1,000 ML IV SCH (07:00)
[2017-04-14] MEDS ORDERED: lactobacillus rhamnosus 10,000 MMU CELLS/CAPSULE ONE (07:58)
[2017-04-14] MEDS ORDERED: pantoprazole 40 MG vial IV ONE (07:58)
[2017-04-14] MEDS ORDERED: docusate sodium 100mg/10ml UD cup ONE (07:58)
[2017-04-14] MEDS ORDERED: furosemide 20 MG/2 ML vial ONE (07:58)
[2017-04-14] MEDS: pantoprazole 40 MG vial IV SCH (08:04)
[2017-04-14] MEDS: lactobacillus rhamnosus 10,000 MMU CELLS/CAPSULE PO SCH ×2 (08:04→20:47)
[2017-04-14] MEDS: insulin regular, human vial - multi-dose SQ SCH ×3 (08:13→20:58)
[2017-04-14] MEDS: docusate sodium 100mg/10ml UD cup PO SCH ×2 (08:21→20:46)
[2017-04-14] MEDS ORDERED: amiodarone/D5 360MG/200ML BAG 200 ML IV ONE (09:19)
[2017-04-14] MEDS ORDERED: furosemide 20 MG/2 ML vial IV ONE (09:40)
[2017-04-14] MEDS: dextrose 5%-water 1,000 ML IV SCH ×2 (10:34→19:40)
[2017-04-14] MEDS ORDERED: FENTANYL-0.9 % NACL/PF 100 ML IV ONE (12:36)
[2017-04-14] MEDS ORDERED: vancomycin/NS 1 GM ADD-VANTAGE 250 ML IV ONE (13:18)
[2017-04-14] MEDS: vancomycin/NS 1 GM ADD-VANTAGE 250 ML IV SCH (13:19)
[2017-04-14] MEDS: FENTANYL-0.9 % NACL/PF 250 ML IV PRN (13:20)
[2017-04-14 14:38] LABS: ALANINE AMINOTRANSFERASE 151 U/L (12-78); ALBUMIN 1.4 G/DL (3.4-5.0); ALBUMIN/GLOBULIN RATIO 0.3 (1.1-1.5); ALKALINE PHOSPHATASE 201 IU/L (46-116); ANION GAP 9 (8-16); ASPARTATE AMINO TRANSFERASE 61 U/L (10-37); BILIRUBIN,TOTAL 0.3 MG/DL (0.1-1.0); BLOOD UREA NITROGEN 37 MG/DL (7-18); BUN/CREATININE RATIO 23.7 (5.4-32.0); CHLORIDE 119 MMOL/L (99-107); CREATININE 1.56 MG/DL (0.60-1.10); GLUCOSE 184 MG/DL (70-104); PHOSPHORUS 3.4 MG/DL (2.3-4.5); PREALBUMIN 9.9 MG/DL (19-36); SODIUM 152 MMOL/L (135-145); TOTAL CARBON DIOXIDE 24.3 MMOL/L (24-32); TOTAL PROTEIN 5.7 G/DL (6.4-8.2); TRIGLYCERIDES 78 MG/DL (20-135); eGFR 45 ML/MIN
[2017-04-14 14:40] LABS: POTASSIUM 2.8 MMOL/L (3.5-5.1)
[2017-04-14 17:09] LABS: HEPATITIS C ANTIBODY <0.1 s/co ratio (0.0-0.9)
[2017-04-14] MEDS: insulin glargine (Lantus) pen - multi-dose SQ SCH (21:02)
[2017-04-14] MEDS ORDERED: fentaNYL 10MCG/ML in NS 50ML 50 ML IV SCH (21:30)
[2017-04-14] MEDS ORDERED: CADD PCA waste documentation MC SCH (22:25)
[2017-04-14] MEDS: HYDROmorphone/NS 1 mg/ml CADD 50 ML IV SCH (23:17)
[2017-04-15] VITALS (24 sets, daily range): BP systolic 86–140; BP diastolic 53–85
[2017-04-15] MEDS: ampicillin/sulbac 3gm/NS 100ml 100 ML IV SCH ×3 (00:40→16:26)
[2017-04-15] MEDS: HYDROmorphone/NS 1 mg/ml CADD 50 ML IV SCH ×11 (01:00→23:00)
[2017-04-15] MEDS: insulin regular, human vial - multi-dose SQ SCH ×3 (02:14→15:36)
[2017-04-15 02:46] LABS: BASOPHILS % (AUTO) 0 % (0-1); EOSINOPHILS # (AUTO) 0.5 X10'3 (0-0.9); EOSINOPHILS % (AUTO) 1.7 % (0-6); HEMATOCRIT 29.9 % (42.0-52.0); HEMOGLOBIN 9.7 g/dl (14.0-17.9); LYMPHOCYTES # (AUTO) 1.2 X10'3 (1.1-4.8); LYMPHOCYTES % (AUTO) 4.2 % (21-51); MEAN CORPUSCULAR HEMOGLOBIN 27.9 PG (27.0-31.0); MEAN CORPUSCULAR HGB CONC 32.3 % (33.0-36.5); MEAN CORPUSCULAR VOLUME 86.2 FL (78-98); MEAN PLATELET VOLUME 9.2 FL (7.4-10.4); MONOCYTES # (AUTO) 0.1 X10'3 (0-0.9); MONOCYTES % (AUTO) 0.2 % (2-12); NEUTROPHILS # (AUTO) 26.6 X10'3 (1.8-7.7); NEUTROPHILS % (AUTO) 93.9 % (42-75); PLATELET COUNT 273 X10'3 (140-440); RED BLOOD COUNT 3.47 X10'6 (4.70-6.10); RED CELL DISTRIBUTION WIDTH 18.1 % (11.5-14.5)
[2017-04-15 02:48] LABS: WHITE BLOOD COUNT 28.4 X10'3 (4.5-11.0)
[2017-04-15 02:52] LABS: ALANINE AMINOTRANSFERASE 120 U/L (12-78); ALBUMIN 1.3 G/DL (3.4-5.0); ALBUMIN/GLOBULIN RATIO 0.3 (1.1-1.5); ALKALINE PHOSPHATASE 178 IU/L (46-116); ANION GAP 9 (8-16); ASPARTATE AMINO TRANSFERASE 53 U/L (10-37); BILIRUBIN,TOTAL 0.3 MG/DL (0.1-1.0); BLOOD UREA NITROGEN 35 MG/DL (7-18); BUN/CREATININE RATIO 25.5 (5.4-32.0); CALCIUM 8.3 MG/DL (8.5-10.1); CHLORIDE 121 MMOL/L (99-107); CREATININE 1.37 MG/DL (0.60-1.10); GLUCOSE 67 MG/DL (70-104); MAGNESIUM 1.8 MG/DL (1.5-2.4); PHOSPHORUS 2.4 MG/DL (2.3-4.5); POTASSIUM 3.1 MMOL/L (3.5-5.1); SODIUM 153 MMOL/L (135-145); TOTAL CARBON DIOXIDE 23.4 MMOL/L (24-32); TOTAL PROTEIN 5.5 G/DL (6.4-8.2); eGFR 53 ML/MIN
[2017-04-15] MEDS: potassium Cl 40MEQ/250ML bag 250 ML IV PRN (03:26)
[2017-04-15 04:17] LABS: ANISOCYTOSIS 2+; PLATELET ESTIMATE NORMAL; POLYCHROMASIA FEW; TARGET CELLS 1+; TOTAL CELLS COUNTED 100
[2017-04-15 04:18] LABS: ELLIPTOCYTES FEW; TOXIC GRANULATION 1+
[2017-04-15] MEDS: pantoprazole 40 MG vial IV SCH (08:47)
[2017-04-15] MEDS: docusate sodium 100mg/10ml UD cup PO SCH ×2 (08:47→20:39)
[2017-04-15] MEDS: lactobacillus rhamnosus 10,000 MMU CELLS/CAPSULE PO SCH ×2 (08:47→20:39)
[2017-04-15] MEDS: vancomycin/NS 1 GM ADD-VANTAGE 250 ML IV SCH (08:48)
[2017-04-15] MEDS: [UNRECOGNIZED DRUG - REMARK] IV SCH (08:52)
[2017-04-15] MEDS: Dakins solution (1/4 strength) 473ml solution TP SCH ×2 (09:03→20:39)
[2017-04-15] MEDS: dextrose 5%-water 1,000 ML IV SCH ×3 (09:04→20:41)
[2017-04-15] MEDS: amiodarone/D5 360MG/200ML BAG 200 ML IV SCH ×2 (09:04→22:42)
[2017-04-15] MEDS: insulin glargine (Lantus) pen - multi-dose SQ SCH (20:40)
[2017-04-16] VITALS (23 sets, daily range): BP systolic 78–131; BP diastolic 44–76
[2017-04-16] MEDS: ampicillin/sulbac 3gm/NS 100ml 100 ML IV SCH (00:04)
[2017-04-16] MEDS: HYDROmorphone/NS 1 mg/ml CADD 50 ML IV SCH ×12 (01:00→23:00)
[2017-04-16 02:39] LABS: BASOPHILS % (AUTO) 0 % (0-1); EOSINOPHILS # (AUTO) 0.5 X10'3 (0-0.9); EOSINOPHILS % (AUTO) 1.8 % (0-6); HEMATOCRIT 29.5 % (42.0-52.0); HEMOGLOBIN 9.5 g/dl (14.0-17.9); LYMPHOCYTES # (AUTO) 1.7 X10'3 (1.1-4.8); LYMPHOCYTES % (AUTO) 5.8 % (21-51); MEAN CORPUSCULAR HEMOGLOBIN 27.7 PG (27.0-31.0); MEAN CORPUSCULAR HGB CONC 32.2 % (33.0-36.5); MEAN CORPUSCULAR VOLUME 86.1 FL (78-98); MEAN PLATELET VOLUME 9.4 FL (7.4-10.4); MONOCYTES # (AUTO) 0.2 X10'3 (0-0.9); MONOCYTES % (AUTO) 0.7 % (2-12); NEUTROPHILS # (AUTO) 27.2 X10'3 (1.8-7.7); NEUTROPHILS % (AUTO) 91.7 % (42-75); PLATELET COUNT 297 X10'3 (140-440); RED BLOOD COUNT 3.42 X10'6 (4.70-6.10)
[2017-04-16 02:44] LABS: WHITE BLOOD COUNT 29.6 X10'3 (4.5-11.0)
[2017-04-16 02:58] LABS: ALANINE AMINOTRANSFERASE 106 U/L (12-78); ALBUMIN 1.2 G/DL (3.4-5.0); ALBUMIN/GLOBULIN RATIO 0.3 (1.1-1.5); ALKALINE PHOSPHATASE 176 IU/L (46-116); ANION GAP 10 (8-16); ASPARTATE AMINO TRANSFERASE 75 U/L (10-37); BILIRUBIN,TOTAL 0.3 MG/DL (0.1-1.0); BLOOD UREA NITROGEN 24 MG/DL (7-18); CALCIUM 7.9 MG/DL (8.5-10.1); CHLORIDE 109 MMOL/L (99-107); GLUCOSE 88 MG/DL (70-104); MAGNESIUM 1.4 MG/DL (1.5-2.4); PHOSPHORUS 2.7 MG/DL (2.3-4.5); PREALBUMIN 10.6 MG/DL (19-36); SODIUM 140 MMOL/L (135-145); TOTAL CARBON DIOXIDE 20.6 MMOL/L (24-32); TOTAL PROTEIN 5.2 G/DL (6.4-8.2); TRIGLYCERIDES 83 MG/DL (20-135); eGFR 61 ML/MIN
[2017-04-16] MEDS: potassium Cl 40MEQ/250ML bag 250 ML IV PRN ×2 (03:17→09:00)
[2017-04-16] MEDS ORDERED: magnesium 2GM in 50ml NS 50 ML IV PRN (04:20)
[2017-04-16] MEDS ORDERED: magnesium 4gm in 100ml NS 100 ML IV PRN (04:20)
[2017-04-16] MEDS ORDERED: magnesium Cl slow-release 64mg tablet PO PRN (04:20)
[2017-04-16 05:05] LABS: ANISOCYTOSIS 2+; PLATELET ESTIMATE NORMAL; TOTAL CELLS COUNTED 100
[2017-04-16 05:06] LABS: POLYCHROMASIA FEW; TARGET CELLS 1+; TOXIC GRANULATION 1+
[2017-04-16 06:03] LABS: UREA NITROGEN 24HR,URINE 12.4 GM/24HR (7-20)
[2017-04-16] MEDS: docusate sodium 100mg/10ml UD cup PO SCH ×2 (08:00→20:00)
[2017-04-16] MEDS: lactobacillus rhamnosus 10,000 MMU CELLS/CAPSULE PO SCH ×2 (08:00→21:33)
[2017-04-16] MEDS: vancomycin/NS 1 GM ADD-VANTAGE 250 ML IV SCH (08:58)
[2017-04-16] MEDS: Dakins solution (1/4 strength) 473ml solution TP SCH ×2 (08:58→21:45)
[2017-04-16] MEDS: pantoprazole 40 MG vial IV SCH (08:58)
[2017-04-16] MEDS: piperacillin/tazo 3.375gm/50ml 50 ML IV SCH ×3 (09:00→21:33)
[2017-04-16] MEDS ORDERED: desflurane 240ml liquid inh. IH ONE (13:33)
[2017-04-16] MEDS ORDERED: midazolam 2 mg/2 ml injection ONE (13:45)
[2017-04-16] MEDS ORDERED: fentaNYL/PF 50MCG/1 ML 2ML syringe ONE (13:45)
[2017-04-16] MEDS ORDERED: vancomycin/NS 1 GM ADD-VANTAGE 250 ML IV SCH (14:09)
[2017-04-16] MEDS ORDERED: LIDOcaine 2% (20mg/ml) 5ml vial ONE (14:38)
[2017-04-16] MEDS ORDERED: propofol inj 20 ML IV ONE (14:39)
[2017-04-16] MEDS ORDERED: ePHEDrine 50MG/ML INJ. ONE (14:39)
[2017-04-16] MEDS: amiodarone/D5 360MG/200ML BAG 200 ML IV SCH (15:28)
[2017-04-16] MEDS: dextrose 5%-water 1,000 ML IV SCH (15:31)
[2017-04-16] MEDS: Protein Shake (high protein) 240ml (8oz) cup PO SCH (18:00)
[2017-04-16] MEDS ORDERED: VANCOMYCIN LEVEL IV ONE (19:30)
[2017-04-16] MEDS: insulin Lispro (HumaLOG) vial - multi-dose SQ SCH (22:40)
[2017-04-16] MEDS: insulin glargine (Lantus) pen - multi-dose SQ SCH (22:43)
[2017-04-16] MEDS: vancomycin inj 750 MG in normal saline 250ml IV soln 250 ML IV SCH (22:53)
[2017-04-17] VITALS (23 sets, daily range): BP systolic 75–140; BP diastolic 47–71
[2017-04-17] MEDS: amiodarone/D5 360MG/200ML BAG 200 ML IV SCH (00:38)
[2017-04-17] MEDS: HYDROmorphone/NS 1 mg/ml CADD 50 ML IV SCH ×11 (01:00→23:00)
[2017-04-17] MEDS: dextrose 5%-water 1,000 ML IV SCH (04:05)
[2017-04-17] MEDS: piperacillin/tazo 3.375gm/50ml 50 ML IV SCH ×4 (04:13→19:35)
[2017-04-17 05:16] LABS: BASOPHILS % (AUTO) 0 % (0-1); EOSINOPHILS # (AUTO) 0.6 X10'3 (0-0.9); EOSINOPHILS % (AUTO) 2.3 % (0-6); HEMATOCRIT 28.6 % (42.0-52.0); HEMOGLOBIN 9.1 g/dl (14.0-17.9); LYMPHOCYTES # (AUTO) 1.3 X10'3 (1.1-4.8); LYMPHOCYTES % (AUTO) 4.9 % (21-51); MEAN CORPUSCULAR HEMOGLOBIN 27.3 PG (27.0-31.0); MEAN CORPUSCULAR HGB CONC 31.7 % (33.0-36.5); MEAN CORPUSCULAR VOLUME 85.9 FL (78-98); MEAN PLATELET VOLUME 9.5 FL (7.4-10.4); MONOCYTES # (AUTO) 0.5 X10'3 (0-0.9); NEUTROPHILS # (AUTO) 23.2 X10'3 (1.8-7.7); NEUTROPHILS % (AUTO) 90.8 % (42-75); PLATELET COUNT 330 X10'3 (140-440); RED BLOOD COUNT 3.32 X10'6 (4.70-6.10); RED CELL DISTRIBUTION WIDTH 18.5 % (11.5-14.5)
[2017-04-17 05:39] LABS: WHITE BLOOD COUNT 25.5 X10'3 (4.5-11.0)
[2017-04-17 05:54] LABS: PHOSPHORUS 4.1 MG/DL (2.3-4.5)
[2017-04-17 07:19] LABS: TOTAL CELLS COUNTED 100
[2017-04-17 07:20] LABS: ANISOCYTOSIS 2+; LYMPHOCYTES % (MANUAL) 5 % (21-51); MONOCYTES % (MANUAL) 1 % (2-12); NEUTROPHILS % (MANUAL) 94 % (42-75); PLATELET ESTIMATE NORMAL; TARGET CELLS 1+
[2017-04-17 07:21] LABS: TOXIC GRANULATION 1+
[2017-04-17 07:36] LABS: ALANINE AMINOTRANSFERASE 70 U/L (12-78); ALBUMIN 1.1 G/DL (3.4-5.0); ALBUMIN/GLOBULIN RATIO 0.3 (1.1-1.5); ALKALINE PHOSPHATASE 160 IU/L (46-116); ANION GAP 9 (8-16); ASPARTATE AMINO TRANSFERASE 41 U/L (10-37); BILIRUBIN,TOTAL 0.3 MG/DL (0.1-1.0); BLOOD UREA NITROGEN 25 MG/DL (7-18); BUN/CREATININE RATIO 19.4 (5.4-32.0); CHLORIDE 108 MMOL/L (99-107); CREATININE 1.29 MG/DL (0.60-1.10); GLUCOSE 65 MG/DL (70-104); POTASSIUM 3.7 MMOL/L (3.5-5.1); SODIUM 136 MMOL/L (135-145); TOTAL CARBON DIOXIDE 18.8 MMOL/L (24-32); TOTAL PROTEIN 5.2 G/DL (6.4-8.2); eGFR 56 ML/MIN
[2017-04-17] MEDS: docusate sodium 100mg/10ml UD cup PO SCH ×2 (08:00→19:35)
[2017-04-17] MEDS ORDERED: multivitamin oral liquid (Certavite) 5ml cup PO SCH (08:00)
[2017-04-17] MEDS: Protein Shake (high protein) 240ml (8oz) cup PO SCH ×3 (08:00→18:00)
[2017-04-17] MEDS: pantoprazole 40 MG vial IV SCH (08:09)
[2017-04-17] MEDS: lactobacillus rhamnosus 10,000 MMU CELLS/CAPSULE PO SCH ×2 (08:09→19:35)
[2017-04-17] MEDS ORDERED: furosemide 40mg/4ml inj IV ONE (09:30)
[2017-04-17] MEDS: multivitamins, therapeutics tablet PO SCH (09:34)
[2017-04-17] MEDS: vancomycin inj 750 MG in normal saline 250ml IV soln 250 ML IV SCH ×2 (09:36→21:28)
[2017-04-17] MEDS: Dakins solution (1/4 strength) 473ml solution TP SCH (10:17)
[2017-04-17] MEDS ORDERED: amiodarone 200mg tablet PO ONE (11:00)
[2017-04-17] MEDS: insulin Lispro (HumaLOG) vial - multi-dose SQ SCH ×2 (13:55→19:44)
[2017-04-17] MEDS: potassium Cl 20 mEq SR tablet PO PRN ×2 (15:01→20:49)
[2017-04-17] MEDS: amiodarone 200mg tablet PO SCH (19:35)
[2017-04-17] MEDS: insulin glargine (Lantus) pen - multi-dose SQ SCH (21:00)
[2017-04-18] VITALS: BP 117/53
[2017-04-18] MEDS: Dakins solution (1/4 strength) 473ml solution TP SCH ×3 (00:58→21:36)
[2017-04-18] MEDS: HYDROmorphone/NS 1 mg/ml CADD 50 ML IV SCH ×12 (01:00→23:00)
[2017-04-18] MEDS: piperacillin/tazo 3.375gm/50ml 50 ML IV SCH (01:34)
[2017-04-18 05:07] LABS: BASOPHILS % (AUTO) 0.1 % (0-1); EOSINOPHILS # (AUTO) 0.6 X10'3 (0-0.9); EOSINOPHILS % (AUTO) 2.3 % (0-6); HEMATOCRIT 26.4 % (42.0-52.0); HEMOGLOBIN 8.3 g/dl (14.0-17.9); LYMPHOCYTES # (AUTO) 1.1 X10'3 (1.1-4.8); LYMPHOCYTES % (AUTO) 4.4 % (21-51); MEAN CORPUSCULAR HEMOGLOBIN 27.4 PG (27.0-31.0); MEAN CORPUSCULAR HGB CONC 31.6 % (33.0-36.5); MEAN CORPUSCULAR VOLUME 86.8 FL (78-98); MEAN PLATELET VOLUME 9.4 FL (7.4-10.4); MONOCYTES # (AUTO) 0.7 X10'3 (0-0.9); MONOCYTES % (AUTO) 2.8 % (2-12); NEUTROPHILS # (AUTO) 23.3 X10'3 (1.8-7.7); NEUTROPHILS % (AUTO) 90.4 % (42-75); PLATELET COUNT 380 X10'3 (140-440); RED BLOOD COUNT 3.04 X10'6 (4.70-6.10)
[2017-04-18 05:16] LABS: WHITE BLOOD COUNT 25.8 X10'3 (4.5-11.0)
[2017-04-18 05:37] LABS: ALBUMIN 1.1 G/DL (3.4-5.0); ANION GAP 9 (8-16); BLOOD UREA NITROGEN 23 MG/DL (7-18); BUN/CREATININE RATIO 16.1 (5.4-32.0); CALCIUM 7.8 MG/DL (8.5-10.1); CHLORIDE 110 MMOL/L (99-107); CREATININE 1.43 MG/DL (0.60-1.10); GLUCOSE 142 MG/DL (70-104); MAGNESIUM 1.5 MG/DL (1.5-2.4); PHOSPHORUS 3.9 MG/DL (2.3-4.5); POTASSIUM 4.3 MMOL/L (3.5-5.1); SODIUM 137 MMOL/L (135-145); TOTAL CARBON DIOXIDE 18.5 MMOL/L (24-32); eGFR 50 ML/MIN
[2017-04-18 05:58] LABS: NEUTROPHILS % (MANUAL) 94 % (42-75); TOTAL CELLS COUNTED 100
[2017-04-18 05:59] LABS: ANISOCYTOSIS 2+; BASOPHILS % (MANUAL) 1 % (0-1); LYMPHOCYTES % (MANUAL) 1 % (21-51); MONOCYTES % (MANUAL) 4 % (2-12); PLATELET ESTIMATE NORMAL; SCHISTOCYTES FEW; TARGET CELLS FEW
[2017-04-18 06:00] LABS: TOXIC GRANULATION 1+
[2017-04-18 08:00] VITALS: BP 113/60
[2017-04-18] MEDS: Protein Shake (high protein) 240ml (8oz) cup PO SCH ×3 (08:00→18:38)
[2017-04-18] MEDS: docusate sodium 100mg/10ml UD cup PO SCH ×2 (08:00→20:00)
[2017-04-18] MEDS ORDERED: VANCOMYCIN LEVEL IV ONE (08:30)
[2017-04-18] MEDS: pantoprazole 40mg Tablet.DR PO SCH (09:36)
[2017-04-18] MEDS: multivitamins, therapeutics tablet PO SCH (09:36)
[2017-04-18] MEDS: amiodarone 200mg tablet PO SCH ×2 (09:36→20:48)
[2017-04-18] MEDS: lactobacillus rhamnosus 10,000 MMU CELLS/CAPSULE PO SCH ×2 (09:36→20:48)
[2017-04-18] MEDS: CefTRIAXone 2gm/D5W 50ml ADVTG 50 ML IV SCH (09:37)
[2017-04-18 11:00] VITALS: BP 86/69
[2017-04-18 12:58] VITALS: BP 95/56
[2017-04-18] MEDS: metroNIDAZOLE-Flagyl 500mg/NS 100 ML IV SCH ×2 (17:43→23:16)
[2017-04-18 20:00] VITALS: BP 110/61
[2017-04-18] MEDS: vancomycin inj 500 MG in normal saline 100ml IV soln 100 ML IV SCH (20:48)
[2017-04-18] MEDS: insulin glargine (Lantus) pen - multi-dose SQ SCH (21:00)
[2017-04-18] MEDS: diatr meglu/diatrizoate 30ml oral sol.-(3 dose) bottle PO SCH (21:34)
[2017-04-18 23:00] VITALS: BP 122/76
[2017-04-19] VITALS (14 sets, daily range): BP systolic 63–94; BP diastolic 41–62
[2017-04-19] MEDS: HYDROmorphone/NS 1 mg/ml CADD 50 ML IV SCH ×7 (01:00→13:00)
[2017-04-19 05:14] LABS: BASOPHILS % (AUTO) 0.1 % (0-1); EOSINOPHILS # (AUTO) 0.5 X10'3 (0-0.9); EOSINOPHILS % (AUTO) 2.1 % (0-6); HEMATOCRIT 24.5 % (42.0-52.0); HEMOGLOBIN 7.9 g/dl (14.0-17.9); LYMPHOCYTES # (AUTO) 1.3 X10'3 (1.1-4.8); LYMPHOCYTES % (AUTO) 5.1 % (21-51); MEAN CORPUSCULAR HEMOGLOBIN 27.3 PG (27.0-31.0); MEAN CORPUSCULAR VOLUME 85.4 FL (78-98); MEAN PLATELET VOLUME 8.9 FL (7.4-10.4); MONOCYTES # (AUTO) 0.9 X10'3 (0-0.9); MONOCYTES % (AUTO) 3.4 % (2-12); NEUTROPHILS # (AUTO) 23.6 X10'3 (1.8-7.7); NEUTROPHILS % (AUTO) 89.3 % (42-75); PLATELET COUNT 514 X10'3 (140-440); RED BLOOD COUNT 2.87 X10'6 (4.70-6.10); RED CELL DISTRIBUTION WIDTH 18.6 % (11.5-14.5)
[2017-04-19 05:25] LABS: WHITE BLOOD COUNT 26.5 X10'3 (4.5-11.0)
[2017-04-19 05:38] LABS: ANION GAP 9 (8-16); BLOOD UREA NITROGEN 18 MG/DL (7-18); CHLORIDE 110 MMOL/L (99-107); CREATININE 1.29 MG/DL (0.60-1.10); GLUCOSE 113 MG/DL (70-104); MAGNESIUM 1.5 MG/DL (1.5-2.4); PHOSPHORUS 3.6 MG/DL (2.3-4.5); POTASSIUM 3.6 MMOL/L (3.5-5.1); PREALBUMIN 7.8 MG/DL (19-36); SODIUM 138 MMOL/L (135-145); TOTAL CARBON DIOXIDE 19.1 MMOL/L (24-32); TRIGLYCERIDES 38 MG/DL (20-135); eGFR 56 ML/MIN
[2017-04-19] MEDS: metroNIDAZOLE-Flagyl 500mg/NS 100 ML IV SCH ×2 (07:24→16:09)
[2017-04-19] MEDS: multivitamins, therapeutics tablet PO SCH (07:25)
[2017-04-19] MEDS: lactobacillus rhamnosus 10,000 MMU CELLS/CAPSULE PO SCH ×2 (07:25→20:30)
[2017-04-19] MEDS: amiodarone 200mg tablet PO SCH ×2 (07:25→20:30)
[2017-04-19] MEDS: pantoprazole 40mg Tablet.DR PO SCH (07:25)
[2017-04-19] MEDS: diatr meglu/diatrizoate 30ml oral sol.-(3 dose) bottle PO SCH ×2 (07:25→09:38)
[2017-04-19] MEDS: docusate sodium 100mg/10ml UD cup PO SCH ×2 (07:40→20:00)
[2017-04-19] MEDS: Protein Shake (high protein) 240ml (8oz) cup PO SCH ×4 (07:40→18:04)
[2017-04-19] MEDS ORDERED: normal saline 1000ml 1,000 ML IV SCH (08:05)
[2017-04-19] MEDS ORDERED: VANCOMYCIN LEVEL IV ONE (08:30)
[2017-04-19 09:33] LABS: TOTAL CELLS COUNTED 100
[2017-04-19 09:35] LABS: ANISOCYTOSIS 2+; PLATELET ESTIMATE INCREASED
[2017-04-19 09:36] LABS: TARGET CELLS FEW
[2017-04-19 09:37] LABS: TOXIC GRANULATION 2+
[2017-04-19 09:38] LABS: POIKILOCYTOSIS FEW
[2017-04-19] MEDS: CefTRIAXone 2gm/D5W 50ml ADVTG 50 ML IV SCH (09:38)
[2017-04-19] MEDS: Dakins solution (1/4 strength) 473ml solution TP SCH (13:09)
[2017-04-19] MEDS: vancomycin inj 500 MG in normal saline 100ml IV soln 100 ML IV SCH ×2 (13:12→23:45)
[2017-04-19] MEDS: nicotine 7mg patch - 24hr TD SCH (14:36)
[2017-04-19] MEDS ORDERED: morphine 5 MG/ML injection IV PRN (16:50)
[2017-04-19] MEDS: oxyCODONE/APAP 5-325mg tablet PO PRN ×2 (17:12→21:17)
[2017-04-19] MEDS: insulin glargine (Lantus) pen - multi-dose SQ SCH (21:00)
[2017-04-20] VITALS (11 sets, daily range): BP systolic 122–147; BP diastolic 61–74
[2017-04-20] MEDS ORDERED: vancomycin inj 500 MG in normal saline 100ml IV soln 100 ML IV SCH (00:38)
[2017-04-20] MEDS: metroNIDAZOLE-Flagyl 500mg/NS 100 ML IV SCH ×4 (01:07→23:17)
[2017-04-20] MEDS: normal saline 1000ml 1,000 ML IV SCH ×5 (01:25→19:46)
[2017-04-20] MEDS: Dakins solution (1/4 strength) 473ml solution TP SCH ×3 (02:10→19:48)
[2017-04-20] MEDS: oxyCODONE/APAP 5-325mg tablet PO PRN ×4 (03:05→19:48)
[2017-04-20 05:55] LABS: BASOPHILS % (AUTO) 0.2 % (0-1); EOSINOPHILS % (AUTO) 0.2 % (0-6); HEMATOCRIT 28.4 % (42.0-52.0); HEMOGLOBIN 9.6 g/dl (14.0-17.9); LYMPHOCYTES # (AUTO) 1.3 X10'3 (1.1-4.8); LYMPHOCYTES % (AUTO) 5.1 % (21-51); MEAN CORPUSCULAR HEMOGLOBIN 28.9 PG (27.0-31.0); MEAN CORPUSCULAR HGB CONC 33.8 % (33.0-36.5); MEAN CORPUSCULAR VOLUME 85.5 FL (78-98); MEAN PLATELET VOLUME 9.4 FL (7.4-10.4); MONOCYTES # (AUTO) 1.1 X10'3 (0-0.9); MONOCYTES % (AUTO) 4.3 % (2-12); NEUTROPHILS # (AUTO) 22.3 X10'3 (1.8-7.7); NEUTROPHILS % (AUTO) 90.2 % (42-75); PLATELET COUNT 652 X10'3 (140-440); RED BLOOD COUNT 3.32 X10'6 (4.70-6.10); WHITE BLOOD COUNT 24.7 X10'3 (4.5-11.0)
[2017-04-20 06:31] LABS: ALBUMIN 1.1 G/DL (3.4-5.0); ANION GAP 11 (8-16); BLOOD UREA NITROGEN 18 MG/DL (7-18); BUN/CREATININE RATIO 13.6 (5.4-32.0); CALCIUM 7.9 MG/DL (8.5-10.1); CHLORIDE 111 MMOL/L (99-107); CREATININE 1.32 MG/DL (0.60-1.10); GLUCOSE 162 MG/DL (70-104); MAGNESIUM 1.4 MG/DL (1.5-2.4); PHOSPHORUS 3.1 MG/DL (2.3-4.5); POTASSIUM 3.3 MMOL/L (3.5-5.1); SODIUM 139 MMOL/L (135-145); TOTAL CARBON DIOXIDE 17.5 MMOL/L (24-32); eGFR 55 ML/MIN
[2017-04-20] MEDS ORDERED: midazolam 2 mg/2 ml injection IV PRN (07:45)
[2017-04-20] MEDS ORDERED: fentaNYL/PF 50MCG/1 ML 2ML syringe IV PRN (07:45)
[2017-04-20] MEDS: docusate sodium 100mg/10ml UD cup PO SCH ×2 (08:00→19:47)
[2017-04-20] MEDS ORDERED: midazolam 2 mg/2 ml injection ONE (08:05)
[2017-04-20] MEDS ORDERED: fentaNYL/PF 50MCG/1 ML 2ML syringe ONE (08:05)
[2017-04-20] MEDS ORDERED: VANCOMYCIN LEVEL IV ONE ×2 (08:30→11:30)
[2017-04-20] MEDS: pantoprazole 40mg Tablet.DR PO SCH (09:40)
[2017-04-20] MEDS: amiodarone 200mg tablet PO SCH ×2 (09:41→19:48)
[2017-04-20] MEDS: lactobacillus rhamnosus 10,000 MMU CELLS/CAPSULE PO SCH ×2 (09:41→19:47)
[2017-04-20] MEDS: Protein Shake (high protein) 240ml (8oz) cup PO SCH ×3 (09:41→18:13)
[2017-04-20] MEDS: multivitamins, therapeutics tablet PO SCH (09:42)
[2017-04-20] MEDS: nicotine 7mg patch - 24hr TD SCH (09:43)
[2017-04-20] MEDS: potassium Cl 20 mEq SR tablet PO PRN ×2 (09:53→14:11)
[2017-04-20] MEDS: vancomycin inj 500 MG in normal saline 100ml IV soln 100 ML IV SCH (12:34)
[2017-04-20] MEDS ORDERED: magnesium 4gm in 100ml NS 100 ML IV PRN ×2 (12:55→20:00)
[2017-04-20] MEDS ORDERED: magnesium 2GM in 50ml NS 50 ML IV PRN ×2 (12:55→20:00)
[2017-04-20] MEDS: magnesium Cl slow-release 64mg tablet PO PRN (15:41)
[2017-04-20] MEDS ORDERED: potassium Cl 40MEQ/NS 500ml 500 ML IV PRN ×2 (20:00)
[2017-04-20] MEDS ORDERED: potassium Cl 20 mEq SR tablet PO PRN ×2 (20:00)
[2017-04-20] MEDS ORDERED: magnesium Cl slow-release 64mg tablet PO PRN (20:00)
[2017-04-20] MEDS: insulin glargine (Lantus) pen - multi-dose SQ SCH (21:00)
[2017-04-21] VITALS: BP 144/76
[2017-04-21] MEDS: oxyCODONE/APAP 5-325mg tablet PO PRN ×5 (00:22→22:25)
[2017-04-21] MEDS: vancomycin inj 500 MG in normal saline 100ml IV soln 100 ML IV SCH ×2 (00:22→12:34)
[2017-04-21] MEDS: normal saline 1000ml 1,000 ML IV SCH ×3 (02:21→20:00)
[2017-04-21 05:27] LABS: BASOPHILS % (AUTO) 0.2 % (0-1); EOSINOPHILS # (AUTO) 0.4 X10'3 (0-0.9); EOSINOPHILS % (AUTO) 1.9 % (0-6); HEMATOCRIT 31.7 % (42.0-52.0); HEMOGLOBIN 10.1 g/dl (14.0-17.9); LYMPHOCYTES # (AUTO) 1.5 X10'3 (1.1-4.8); LYMPHOCYTES % (AUTO) 7.1 % (21-51); MEAN CORPUSCULAR HEMOGLOBIN 27.9 PG (27.0-31.0); MEAN CORPUSCULAR HGB CONC 31.8 % (33.0-36.5); MEAN CORPUSCULAR VOLUME 87.8 FL (78-98); MEAN PLATELET VOLUME 8.6 FL (7.4-10.4); MONOCYTES # (AUTO) 1.2 X10'3 (0-0.9); MONOCYTES % (AUTO) 5.5 % (2-12); NEUTROPHILS # (AUTO) 17.9 X10'3 (1.8-7.7); NEUTROPHILS % (AUTO) 85.3 % (42-75); PLATELET COUNT 771 X10'3 (140-440); RED BLOOD COUNT 3.61 X10'6 (4.70-6.10); RED CELL DISTRIBUTION WIDTH 17.5 % (11.5-14.5)
[2017-04-21 05:41] LABS: ALBUMIN 1.1 G/DL (3.4-5.0); ANION GAP 8 (8-16); BLOOD UREA NITROGEN 16 MG/DL (7-18); CALCIUM 8.2 MG/DL (8.5-10.1); CHLORIDE 112 MMOL/L (99-107); CREATININE 1.23 MG/DL (0.60-1.10); GLUCOSE 120 MG/DL (70-104); MAGNESIUM 1.4 MG/DL (1.5-2.4); PHOSPHORUS 2.8 MG/DL (2.3-4.5); POTASSIUM 3.7 MMOL/L (3.5-5.1); SODIUM 139 MMOL/L (135-145); TOTAL CARBON DIOXIDE 19.3 MMOL/L (24-32); eGFR 60 ML/MIN
[2017-04-21 08:00] VITALS: BP 101/62
[2017-04-21] MEDS: metroNIDAZOLE-Flagyl 500mg/NS 100 ML IV SCH ×2 (08:27→16:54)
[2017-04-21] MEDS: docusate sodium 100mg/10ml UD cup PO SCH ×2 (08:27→20:00)
[2017-04-21] MEDS: nicotine 7mg patch - 24hr TD SCH (08:27)
[2017-04-21] MEDS: pantoprazole 40mg Tablet.DR PO SCH (08:27)
[2017-04-21] MEDS: Dakins solution (1/4 strength) 473ml solution TP SCH (08:28)
[2017-04-21] MEDS: multivitamins, therapeutics tablet PO SCH (08:28)
[2017-04-21] MEDS: amiodarone 200mg tablet PO SCH ×2 (08:28→20:00)
[2017-04-21] MEDS: lactobacillus rhamnosus 10,000 MMU CELLS/CAPSULE PO SCH ×2 (08:28→20:00)
[2017-04-21] MEDS: Protein Shake (high protein) 240ml (8oz) cup PO SCH ×3 (08:28→20:11)
[2017-04-21] MEDS: magnesium Cl slow-release 64mg tablet PO PRN (09:29)
[2017-04-21 11:00] VITALS: BP 140/70
[2017-04-21] MEDS ORDERED: VANCOMYCIN LEVEL IV ONE (11:30)
[2017-04-21 19:00] VITALS: BP 146/70
[2017-04-21] MEDS: insulin glargine (Lantus) pen - multi-dose SQ SCH (21:00)
[2017-04-22] VITALS: BP 130/58
[2017-04-22] MEDS: normal saline 1000ml 1,000 ML IV SCH ×4 (00:05→20:05)
[2017-04-22] MEDS: metroNIDAZOLE-Flagyl 500mg/NS 100 ML IV SCH ×3 (00:44→16:10)
[2017-04-22] MEDS: vancomycin inj. 750 MG in normal saline 250ml IV soln 250 ML IV SCH ×2 (00:44→12:52)
[2017-04-22] MEDS: Dakins solution (1/4 strength) 473ml solution TP SCH ×2 (00:45→08:05)
[2017-04-22 06:42] LABS: BASOPHILS # (AUTO) 0.1 X10'3 (0-0.2); BASOPHILS % (AUTO) 0.5 % (0-1); EOSINOPHILS # (AUTO) 0.3 X10'3 (0-0.9); EOSINOPHILS % (AUTO) 1.8 % (0-6); HEMATOCRIT 30.6 % (42.0-52.0); HEMOGLOBIN 9.8 g/dl (14.0-17.9); LYMPHOCYTES # (AUTO) 1.4 X10'3 (1.1-4.8); LYMPHOCYTES % (AUTO) 7.8 % (21-51); MEAN CORPUSCULAR VOLUME 87.6 FL (78-98); MEAN PLATELET VOLUME 8.3 FL (7.4-10.4); MONOCYTES # (AUTO) 1.3 X10'3 (0-0.9); MONOCYTES % (AUTO) 6.8 % (2-12); NEUTROPHILS # (AUTO) 15.3 X10'3 (1.8-7.7); NEUTROPHILS % (AUTO) 83.1 % (42-75); PLATELET COUNT 881 X10'3 (140-440); RED BLOOD COUNT 3.49 X10'6 (4.70-6.10); RED CELL DISTRIBUTION WIDTH 17.7 % (11.5-14.5); WHITE BLOOD COUNT 18.5 X10'3 (4.5-11.0)
[2017-04-22 07:22] VITALS: BP 135/72
[2017-04-22 07:25] LABS: ALBUMIN 1.1 G/DL (3.4-5.0); ANION GAP 7 (8-16); BLOOD UREA NITROGEN 15 MG/DL (7-18); BUN/CREATININE RATIO 12.3 (5.4-32.0); CALCIUM 8.6 MG/DL (8.5-10.1); CHLORIDE 113 MMOL/L (99-107); CREATININE 1.22 MG/DL (0.60-1.10); GLUCOSE 117 MG/DL (70-104); MAGNESIUM 1.4 MG/DL (1.5-2.4); PHOSPHORUS 3.1 MG/DL (2.3-4.5); POTASSIUM 3.5 MMOL/L (3.5-5.1); SODIUM 140 MMOL/L (135-145); TOTAL CARBON DIOXIDE 19.7 MMOL/L (24-32); eGFR 60 ML/MIN
[2017-04-22] MEDS: docusate sodium 100mg/10ml UD cup PO SCH ×2 (07:34→19:46)
[2017-04-22] MEDS: oxyCODONE/APAP 5-325mg tablet PO PRN ×4 (07:34→20:59)
[2017-04-22] MEDS: pantoprazole 40mg Tablet.DR PO SCH (07:35)
[2017-04-22] MEDS: lactobacillus rhamnosus 10,000 MMU CELLS/CAPSULE PO SCH ×2 (07:35→19:46)
[2017-04-22] MEDS: multivitamins, therapeutics tablet PO SCH (07:35)
[2017-04-22] MEDS: nicotine 7mg patch - 24hr TD SCH (07:35)
[2017-04-22] MEDS: amiodarone 200mg tablet PO SCH ×2 (07:35→19:46)
[2017-04-22] MEDS: Protein Shake (high protein) 240ml (8oz) cup PO SCH ×3 (07:49→18:00)
[2017-04-22] MEDS: magnesium Cl slow-release 64mg tablet PO PRN ×2 (07:53→17:27)
[2017-04-22 12:00] VITALS: BP 133/72
[2017-04-22 18:00] VITALS: BP 104/73
[2017-04-22] MEDS: insulin glargine (Lantus) pen - multi-dose SQ SCH (21:00)
[2017-04-23] VITALS (18 sets, daily range): BP systolic 85–116; BP diastolic 54–72
[2017-04-23] MEDS: Dakins solution (1/4 strength) 473ml solution TP SCH ×2 (00:18→09:21)
[2017-04-23] MEDS: metroNIDAZOLE-Flagyl 500mg/NS 100 ML IV SCH ×3 (00:19→16:00)
[2017-04-23] MEDS: normal saline 1000ml 1,000 ML IV SCH ×4 (00:22→19:18)
[2017-04-23] MEDS: oxyCODONE/APAP 5-325mg tablet PO PRN ×4 (00:44→19:06)
[2017-04-23] MEDS: vancomycin inj. 750 MG in normal saline 250ml IV soln 250 ML IV SCH ×2 (02:48→12:15)
[2017-04-23 05:13] LABS: BASOPHILS # (AUTO) 0.1 X10'3 (0-0.2); BASOPHILS % (AUTO) 0.6 % (0-1); EOSINOPHILS # (AUTO) 0.3 X10'3 (0-0.9); EOSINOPHILS % (AUTO) 1.9 % (0-6); HEMATOCRIT 29.5 % (42.0-52.0); HEMOGLOBIN 9.4 g/dl (14.0-17.9); LYMPHOCYTES # (AUTO) 1.4 X10'3 (1.1-4.8); LYMPHOCYTES % (AUTO) 8.4 % (21-51); MEAN CORPUSCULAR HEMOGLOBIN 27.9 PG (27.0-31.0); MEAN CORPUSCULAR HGB CONC 31.7 % (33.0-36.5); MEAN PLATELET VOLUME 7.7 FL (7.4-10.4); MONOCYTES # (AUTO) 1.2 X10'3 (0-0.9); MONOCYTES % (AUTO) 7.4 % (2-12); NEUTROPHILS # (AUTO) 13.4 X10'3 (1.8-7.7); NEUTROPHILS % (AUTO) 81.7 % (42-75); PLATELET COUNT 892 X10'3 (140-440); RED BLOOD COUNT 3.35 X10'6 (4.70-6.10); RED CELL DISTRIBUTION WIDTH 17.8 % (11.5-14.5); WHITE BLOOD COUNT 16.4 X10'3 (4.5-11.0)
[2017-04-23 05:35] LABS: ALBUMIN 1.2 G/DL (3.4-5.0); ANION GAP 4 (8-16); BLOOD UREA NITROGEN 17 MG/DL (7-18); BUN/CREATININE RATIO 12.8 (5.4-32.0); CALCIUM 8.9 MG/DL (8.5-10.1); CHLORIDE 113 MMOL/L (99-107); CREATININE 1.33 MG/DL (0.60-1.10); GLUCOSE 115 MG/DL (70-104); MAGNESIUM 1.5 MG/DL (1.5-2.4); PHOSPHORUS 3.7 MG/DL (2.3-4.5); POTASSIUM 3.6 MMOL/L (3.5-5.1); SODIUM 137 MMOL/L (135-145); TOTAL CARBON DIOXIDE 20.2 MMOL/L (24-32); eGFR 54 ML/MIN
[2017-04-23] MEDS: Protein Shake (high protein) 240ml (8oz) cup PO SCH ×3 (08:00→18:06)
[2017-04-23] MEDS: pantoprazole 40mg Tablet.DR PO SCH (09:13)
[2017-04-23] MEDS: nicotine 7mg patch - 24hr TD SCH (09:14)
[2017-04-23] MEDS: amiodarone 200mg tablet PO SCH ×2 (09:15→19:06)
[2017-04-23] MEDS: lactobacillus rhamnosus 10,000 MMU CELLS/CAPSULE PO SCH ×2 (09:15→19:05)
[2017-04-23] MEDS: docusate sodium 100mg/10ml UD cup PO SCH ×2 (09:15→19:05)
[2017-04-23] MEDS: multivitamins, therapeutics tablet PO SCH (09:16)
[2017-04-23] MEDS: CefTRIAXone 2gm/D5W 50ml ADVTG 50 ML IV SCH (11:14)
[2017-04-23] MEDS ORDERED: VANCOMYCIN LEVEL IV ONE (11:30)
[2017-04-23 12:12] LABS: INR 1.1 INR; PARTIAL THROMBOPLASTIN TIME 30 SECONDS (22-32); PROTHROMBIN TIME 11.6 SECONDS (9.0-12.0)
[2017-04-23] MEDS ORDERED: clindamycin phosphate 150mg/ml inj. ONE (14:09)
[2017-04-23] MEDS ORDERED: gentamicin 40 MG/1 ML inj ONE (14:09)
[2017-04-23] MEDS ORDERED: LIDOcaine 2% (20mg/ml) 5ml vial ONE (14:23)
[2017-04-23] MEDS ORDERED: midazolam 2 mg/2 ml injection ONE (14:23)
[2017-04-23] MEDS ORDERED: fentaNYL/PF 50MCG/1 ML 2ML syringe ONE (14:23)
[2017-04-23] MEDS ORDERED: propofol inj 20 ML IV ONE (14:23)
[2017-04-23] MEDS ORDERED: sevoflurane 250ml liquid IH ONE (14:25)
[2017-04-23] MEDS ORDERED: phenylephrine 10mg/ml inj IV ONE (14:25)
[2017-04-23] MEDS ORDERED: rocuronium 10mg/ml inj IV ONE (14:43)
[2017-04-23] MEDS ORDERED: ringers solution, lacted 1,000 ML IV SCH (15:14)
[2017-04-23] MEDS ORDERED: morphine sulfate 8 MG/ML SYRINGE IV PRN ×2 (15:15)
[2017-04-23] MEDS ORDERED: ondansetron/PF 4mg/2ml inj IV PRN (15:15)
[2017-04-23] MEDS ORDERED: proCHLORperazine 10 MG/2 ml inj IV PRN (15:15)
[2017-04-23] MEDS ORDERED: meperidine/PF 25mg/ml syringe IV PRN ×3 (15:15)
[2017-04-23] MEDS: insulin glargine (Lantus) pen - multi-dose SQ SCH (21:00)
[2017-04-24] VITALS: BP 134/70
[2017-04-24] MEDS: normal saline 1000ml 1,000 ML IV SCH ×3 (01:03→20:52)
[2017-04-24] MEDS: metroNIDAZOLE-Flagyl 500mg/NS 100 ML IV SCH ×4 (01:03→23:58)
[2017-04-24] MEDS: oxyCODONE/APAP 5-325mg tablet PO PRN ×5 (01:39→20:52)
[2017-04-24] MEDS: vancomycin inj. 750 MG in normal saline 250ml IV soln 250 ML IV SCH ×2 (02:00→11:59)
[2017-04-24 05:26] LABS: BASOPHILS # (AUTO) 0.1 X10'3 (0-0.2); BASOPHILS % (AUTO) 0.5 % (0-1); EOSINOPHILS # (AUTO) 0.3 X10'3 (0-0.9); EOSINOPHILS % (AUTO) 1.6 % (0-6); HEMATOCRIT 27.9 % (42.0-52.0); HEMOGLOBIN 8.9 g/dl (14.0-17.9); MEAN CORPUSCULAR HEMOGLOBIN 27.7 PG (27.0-31.0); MEAN CORPUSCULAR HGB CONC 31.7 % (33.0-36.5); MEAN CORPUSCULAR VOLUME 87.4 FL (78-98); MEAN PLATELET VOLUME 7.8 FL (7.4-10.4); MONOCYTES # (AUTO) 0.9 X10'3 (0-0.9); MONOCYTES % (AUTO) 5.2 % (2-12); NEUTROPHILS # (AUTO) 14.3 X10'3 (1.8-7.7); NEUTROPHILS % (AUTO) 86.7 % (42-75); PLATELET COUNT 878 X10'3 (140-440); RED BLOOD COUNT 3.19 X10'6 (4.70-6.10); RED CELL DISTRIBUTION WIDTH 18.1 % (11.5-14.5); WHITE BLOOD COUNT 16.5 X10'3 (4.5-11.0)
[2017-04-24 05:46] LABS: ALBUMIN 1.1 G/DL (3.4-5.0); ANION GAP 10 (8-16); BLOOD UREA NITROGEN 14 MG/DL (7-18); BUN/CREATININE RATIO 11.8 (5.4-32.0); CALCIUM 8.8 MG/DL (8.5-10.1); CHLORIDE 115 MMOL/L (99-107); CREATININE 1.19 MG/DL (0.60-1.10); GLUCOSE 121 MG/DL (70-104); MAGNESIUM 1.6 MG/DL (1.5-2.4); PHOSPHORUS 3.9 MG/DL (2.3-4.5); POTASSIUM 3.4 MMOL/L (3.5-5.1); SODIUM 143 MMOL/L (135-145); TOTAL CARBON DIOXIDE 17.9 MMOL/L (24-32); eGFR 62 ML/MIN
[2017-04-24 06:00] VITALS: BP 92/64
[2017-04-24] MEDS: Dakins solution (1/4 strength) 473ml solution TP SCH ×3 (07:25→20:00)
[2017-04-24] MEDS: lactobacillus rhamnosus 10,000 MMU CELLS/CAPSULE PO SCH ×2 (07:44→19:48)
[2017-04-24] MEDS: multivitamins, therapeutics tablet PO SCH (07:45)
[2017-04-24] MEDS: pantoprazole 40mg Tablet.DR PO SCH (07:45)
[2017-04-24] MEDS: amiodarone 200mg tablet PO SCH ×2 (07:45→19:48)
[2017-04-24] MEDS: CefTRIAXone 2gm/D5W 50ml ADVTG 50 ML IV SCH (07:48)
[2017-04-24] MEDS: docusate sodium 100mg/10ml UD cup PO SCH ×2 (07:48→19:48)
[2017-04-24] MEDS: Protein Shake (high protein) 240ml (8oz) cup PO SCH ×3 (08:28→18:00)
[2017-04-24] MEDS: nicotine 7mg patch - 24hr TD SCH (08:33)
[2017-04-24 11:00] VITALS: BP 107/70
[2017-04-24] MEDS: insulin glargine (Lantus) pen - multi-dose SQ SCH (21:00)
[2017-04-25] VITALS: BP 91/62
[2017-04-25] MEDS: normal saline 1000ml 1,000 ML IV SCH ×4 (01:25→20:25)
[2017-04-25] MEDS: oxyCODONE/APAP 5-325mg tablet PO PRN ×3 (02:06→20:02)
[2017-04-25 06:00] VITALS: BP 132/76
[2017-04-25] MEDS: Dakins solution (1/4 strength) 473ml solution TP SCH ×2 (07:03→20:00)
[2017-04-25] MEDS: CefTRIAXone 2gm/D5W 50ml ADVTG 50 ML IV SCH (08:52)
[2017-04-25] MEDS: metroNIDAZOLE-Flagyl 500mg/NS 100 ML IV SCH ×3 (08:54→23:55)
[2017-04-25] MEDS: amiodarone 200mg tablet PO SCH ×2 (08:55→20:23)
[2017-04-25] MEDS: docusate sodium 100mg/10ml UD cup PO SCH ×2 (08:55→20:23)
[2017-04-25] MEDS: lactobacillus rhamnosus 10,000 MMU CELLS/CAPSULE PO SCH ×2 (08:55→20:23)
[2017-04-25] MEDS: multivitamins, therapeutics tablet PO SCH (08:56)
[2017-04-25] MEDS: nicotine 7mg patch - 24hr TD SCH (08:57)
[2017-04-25] MEDS: Protein Shake (high protein) 240ml (8oz) cup PO SCH ×3 (08:57→18:00)
[2017-04-25] MEDS: pantoprazole 40mg Tablet.DR PO SCH (09:54)
[2017-04-25 12:00] VITALS: BP 136/66
[2017-04-25] MEDS: vancomycin inj. 750 MG in normal saline 250ml IV soln 250 ML IV SCH ×4 (12:42→23:56)
[2017-04-25 20:00] VITALS: BP 138/65
[2017-04-25] MEDS: insulin glargine (Lantus) pen - multi-dose SQ SCH (21:00)
[2017-04-26] VITALS: BP 134/72
[2017-04-26] MEDS: normal saline 1000ml 1,000 ML IV SCH ×3 (04:05→17:29)
[2017-04-26] MEDS: oxyCODONE/APAP 5-325mg tablet PO PRN ×3 (05:54→14:41)
[2017-04-26] MEDS: metroNIDAZOLE-Flagyl 500mg/NS 100 ML IV SCH ×3 (07:39→23:47)
[2017-04-26] MEDS: pantoprazole 40mg Tablet.DR PO SCH (07:41)
[2017-04-26] MEDS: docusate sodium 100mg/10ml UD cup PO SCH ×2 (07:42→20:00)
[2017-04-26] MEDS: amiodarone 200mg tablet PO SCH ×2 (07:42→22:12)
[2017-04-26] MEDS: lactobacillus rhamnosus 10,000 MMU CELLS/CAPSULE PO SCH ×2 (07:42→22:12)
[2017-04-26] MEDS: multivitamins, therapeutics tablet PO SCH (07:42)
[2017-04-26 08:00] VITALS: BP 133/74
[2017-04-26] MEDS: Dakins solution (1/4 strength) 473ml solution TP SCH ×2 (08:00→20:00)
[2017-04-26] MEDS: Protein Shake (high protein) 240ml (8oz) cup PO SCH ×3 (08:00→18:06)
[2017-04-26] MEDS: nicotine 7mg patch - 24hr TD SCH (08:00)
[2017-04-26] MEDS: CefTRIAXone 2gm/D5W 50ml ADVTG 50 ML IV SCH (10:12)
[2017-04-26 11:35] VITALS: BP 125/69
[2017-04-26] MEDS: vancomycin inj. 750 MG in normal saline 250ml IV soln 250 ML IV SCH (12:45)
[2017-04-26 13:11] LABS: BASOPHILS # (AUTO) 0.2 X10'3 (0-0.2); BASOPHILS % (AUTO) 1.7 % (0-1); EOSINOPHILS # (AUTO) 0.3 X10'3 (0-0.9); EOSINOPHILS % (AUTO) 2.1 % (0-6); HEMATOCRIT 29.6 % (42.0-52.0); HEMOGLOBIN 9.4 g/dl (14.0-17.9); LYMPHOCYTES # (AUTO) 1.1 X10'3 (1.1-4.8); LYMPHOCYTES % (AUTO) 8.8 % (21-51); MEAN CORPUSCULAR HEMOGLOBIN 27.7 PG (27.0-31.0); MEAN CORPUSCULAR HGB CONC 31.7 % (33.0-36.5); MEAN CORPUSCULAR VOLUME 87.4 FL (78-98); MEAN PLATELET VOLUME 7.8 FL (7.4-10.4); MONOCYTES # (AUTO) 0.7 X10'3 (0-0.9); MONOCYTES % (AUTO) 5.8 % (2-12); NEUTROPHILS # (AUTO) 9.9 X10'3 (1.8-7.7); NEUTROPHILS % (AUTO) 81.6 % (42-75); PLATELET COUNT 881 X10'3 (140-440); RED BLOOD COUNT 3.38 X10'6 (4.70-6.10); RED CELL DISTRIBUTION WIDTH 18.3 % (11.5-14.5); WHITE BLOOD COUNT 12.2 X10'3 (4.5-11.0)
[2017-04-26 13:34] LABS: ALANINE AMINOTRANSFERASE 18 U/L (12-78); ALBUMIN 1.3 G/DL (3.4-5.0); ALBUMIN/GLOBULIN RATIO 0.2 (1.1-1.5); ALKALINE PHOSPHATASE 113 IU/L (46-116); ANION GAP 9 (8-16); ASPARTATE AMINO TRANSFERASE 18 U/L (10-37); BILIRUBIN,TOTAL 0.1 MG/DL (0.1-1.0); BLOOD UREA NITROGEN 13 MG/DL (7-18); BUN/CREATININE RATIO 10.4 (5.4-32.0); CALCIUM 9.3 MG/DL (8.5-10.1); CHLORIDE 115 MMOL/L (99-107); CREATININE 1.25 MG/DL (0.60-1.10); GLUCOSE 122 MG/DL (70-104); POTASSIUM 3.5 MMOL/L (3.5-5.1); SODIUM 143 MMOL/L (135-145); TOTAL PROTEIN 6.8 G/DL (6.4-8.2); eGFR 59 ML/MIN
[2017-04-26 19:00] VITALS: BP 136/70
[2017-04-26] MEDS: insulin glargine (Lantus) pen - multi-dose SQ SCH (21:00)
[2017-04-26] MEDS: morphine sulfate 8 MG/ML SYRINGE IV PRN (22:13)
[2017-04-27] VITALS: BP 122/69
[2017-04-27] MEDS: oxyCODONE/APAP 5-325mg tablet PO PRN ×6 (00:04→23:11)
[2017-04-27] MEDS: normal saline 1000ml 1,000 ML IV SCH ×4 (00:05→17:06)
[2017-04-27] MEDS: vancomycin inj. 750 MG in normal saline 250ml IV soln 250 ML IV SCH ×2 (01:15→12:37)
[2017-04-27 06:05] LABS: BASOPHILS # (AUTO) 0.1 X10'3 (0-0.2); BASOPHILS % (AUTO) 0.8 % (0-1); EOSINOPHILS # (AUTO) 0.4 X10'3 (0-0.9); EOSINOPHILS % (AUTO) 2.9 % (0-6); HEMOGLOBIN 8.9 g/dl (14.0-17.9); LYMPHOCYTES # (AUTO) 1.1 X10'3 (1.1-4.8); LYMPHOCYTES % (AUTO) 8.9 % (21-51); MEAN CORPUSCULAR HEMOGLOBIN 27.3 PG (27.0-31.0); MEAN CORPUSCULAR HGB CONC 31.6 % (33.0-36.5); MEAN CORPUSCULAR VOLUME 86.6 FL (78-98); MEAN PLATELET VOLUME 7.9 FL (7.4-10.4); MONOCYTES % (AUTO) 7.6 % (2-12); NEUTROPHILS % (AUTO) 79.8 % (42-75); PLATELET COUNT 803 X10'3 (140-440); RED BLOOD COUNT 3.23 X10'6 (4.70-6.10); RED CELL DISTRIBUTION WIDTH 18.5 % (11.5-14.5); WHITE BLOOD COUNT 12.5 X10'3 (4.5-11.0)
[2017-04-27 07:01] LABS: ALANINE AMINOTRANSFERASE 16 U/L (12-78); ALBUMIN 1.2 G/DL (3.4-5.0); ALBUMIN/GLOBULIN RATIO 0.2 (1.1-1.5); ALKALINE PHOSPHATASE 102 IU/L (46-116); ANION GAP 9 (8-16); ASPARTATE AMINO TRANSFERASE 14 U/L (10-37); BILIRUBIN,TOTAL 0.1 MG/DL (0.1-1.0); BLOOD UREA NITROGEN 10 MG/DL (7-18); BUN/CREATININE RATIO 7.5 (5.4-32.0); CALCIUM 9.2 MG/DL (8.5-10.1); CHLORIDE 116 MMOL/L (99-107); CREATININE 1.34 MG/DL (0.60-1.10); GLUCOSE 108 MG/DL (70-104); POTASSIUM 3.1 MMOL/L (3.5-5.1); SODIUM 144 MMOL/L (135-145); TOTAL CARBON DIOXIDE 19.4 MMOL/L (24-32); TOTAL PROTEIN 6.3 G/DL (6.4-8.2); eGFR 54 ML/MIN
[2017-04-27 08:00] VITALS: BP 137/74
[2017-04-27] MEDS: nicotine 7mg patch - 24hr TD SCH (08:00)
[2017-04-27] MEDS: docusate sodium 100mg/10ml UD cup PO SCH ×3 (08:00→21:18)
[2017-04-27] MEDS: Dakins solution (1/4 strength) 473ml solution TP SCH (08:00)
[2017-04-27] MEDS: amiodarone 200mg tablet PO SCH ×2 (08:14→21:19)
[2017-04-27] MEDS: lactobacillus rhamnosus 10,000 MMU CELLS/CAPSULE PO SCH ×2 (08:14→21:19)
[2017-04-27] MEDS: pantoprazole 40mg Tablet.DR PO SCH (08:14)
[2017-04-27] MEDS: multivitamins, therapeutics tablet PO SCH (08:14)
[2017-04-27] MEDS: metroNIDAZOLE-Flagyl 500mg/NS 100 ML IV SCH ×3 (08:15→23:12)
[2017-04-27] MEDS: Protein Shake (high protein) 240ml (8oz) cup PO SCH ×3 (08:25→18:00)
[2017-04-27] MEDS: CefTRIAXone 2gm/D5W 50ml ADVTG 50 ML IV SCH (09:54)
[2017-04-27] MEDS ORDERED: magnesium 4gm in 100ml NS 100 ML IV PRN (16:25)
[2017-04-27] MEDS ORDERED: magnesium 2GM in 50ml NS 50 ML IV PRN (16:25)
[2017-04-27] MEDS ORDERED: magnesium Cl slow-release 64mg tablet PO PRN (16:25)
[2017-04-27] MEDS ORDERED: potassium Cl 20 mEq SR tablet PO PRN (16:25)
[2017-04-27] MEDS: potassium Cl 20 mEq SR tablet PO PRN ×2 (16:58→22:15)
[2017-04-27 20:00] VITALS: BP 115/67
[2017-04-27] MEDS: insulin glargine (Lantus) pen - multi-dose SQ SCH (21:00)
[2017-04-28] VITALS: BP 129/69
[2017-04-28] MEDS: vancomycin inj. 750 MG in normal saline 250ml IV soln 250 ML IV SCH ×2 (00:56→12:49)
[2017-04-28] MEDS: morphine sulfate 8 MG/ML SYRINGE IV PRN ×2 (01:10→23:31)
[2017-04-28] MEDS: potassium Cl 20 mEq SR tablet PO PRN (02:32)
[2017-04-28] MEDS: normal saline 1000ml 1,000 ML IV SCH ×4 (02:45→22:45)
[2017-04-28] MEDS: oxyCODONE/APAP 5-325mg tablet PO PRN ×4 (03:18→21:12)
[2017-04-28 05:39] LABS: MAGNESIUM 1.7 MG/DL (1.5-2.4); POTASSIUM 3.2 MMOL/L (3.5-5.1)
[2017-04-28] MEDS ORDERED: LIDOcaine 1% 30ml vial 5 ML in potassium Cl 40MEQ/NS 500ml 500 ML IV PRN (07:25)
[2017-04-28] MEDS: lactobacillus rhamnosus 10,000 MMU CELLS/CAPSULE PO SCH ×2 (07:27→21:11)
[2017-04-28] MEDS: amiodarone 200mg tablet PO SCH ×2 (07:27→21:11)
[2017-04-28] MEDS: docusate sodium 100mg/10ml UD cup PO SCH ×2 (07:27→20:00)
[2017-04-28] MEDS: metroNIDAZOLE-Flagyl 500mg/NS 100 ML IV SCH ×3 (07:27→23:14)
[2017-04-28] MEDS: multivitamins, therapeutics tablet PO SCH (07:27)
[2017-04-28] MEDS: pantoprazole 40mg Tablet.DR PO SCH (07:27)
[2017-04-28] MEDS: nicotine 7mg patch - 24hr TD SCH ×2 (07:28→07:39)
[2017-04-28 07:51] VITALS: BP 114/64
[2017-04-28] MEDS: Protein Shake (high protein) 240ml (8oz) cup PO SCH ×3 (08:00→18:00)
[2017-04-28] MEDS ORDERED: magnesium Cl slow-release 64mg tablet PO PRN (09:20)
[2017-04-28] MEDS ORDERED: potassium Cl 40MEQ/NS 500ml 500 ML IV PRN ×2 (09:20)
[2017-04-28] MEDS ORDERED: potassium Cl 20 mEq SR tablet PO PRN (09:20)
[2017-04-28] MEDS ORDERED: magnesium 4gm in 100ml NS 100 ML IV PRN (09:20)
[2017-04-28] MEDS ORDERED: magnesium 2GM in 50ml NS 50 ML IV PRN (09:20)
[2017-04-28] MEDS: CefTRIAXone 2gm/D5W 50ml ADVTG 50 ML IV SCH (09:56)
[2017-04-28 11:00] VITALS: BP 131/68
[2017-04-28 20:00] VITALS: BP 142/75
[2017-04-28] MEDS: ALPRAZolam 0.25mg tablet PO PRN (23:14)
[2017-04-29 00:45] VITALS: BP 130/67
[2017-04-29] MEDS: vancomycin inj. 750 MG in normal saline 250ml IV soln 250 ML IV SCH ×2 (00:52→13:01)
[2017-04-29] MEDS: oxyCODONE/APAP 5-325mg tablet PO PRN ×5 (03:04→23:09)
[2017-04-29] MEDS: normal saline 1000ml 1,000 ML IV SCH ×3 (05:25→15:17)
[2017-04-29 06:38] LABS: MAGNESIUM 1.6 MG/DL (1.5-2.4); POTASSIUM 3.4 MMOL/L (3.5-5.1)
[2017-04-29] MEDS: K and/or MAG REPLACEMENT MC SCH (08:00)
[2017-04-29] MEDS: nicotine 7mg patch - 24hr TD SCH (08:00)
[2017-04-29] MEDS: metroNIDAZOLE-Flagyl 500mg/NS 100 ML IV SCH ×3 (08:26→23:03)
[2017-04-29] MEDS: pantoprazole 40mg Tablet.DR PO SCH (08:28)
[2017-04-29] MEDS: docusate sodium 100mg/10ml UD cup PO SCH ×2 (08:28→21:38)
[2017-04-29] MEDS: amiodarone 200mg tablet PO SCH ×2 (08:29→21:38)
[2017-04-29] MEDS: lactobacillus rhamnosus 10,000 MMU CELLS/CAPSULE PO SCH ×2 (08:29→21:38)
[2017-04-29] MEDS: multivitamins, therapeutics tablet PO SCH (08:29)
[2017-04-29] MEDS: Protein Shake (high protein) 240ml (8oz) cup PO SCH ×3 (08:29→18:11)
[2017-04-29] MEDS: potassium Cl 20 mEq SR tablet PO PRN ×3 (08:30→22:32)
[2017-04-29 09:02] VITALS: BP 144/83
[2017-04-29] MEDS: CefTRIAXone 2gm/D5W 50ml ADVTG 50 ML IV SCH (10:32)
[2017-04-29 12:00] VITALS: BP 141/75
[2017-04-29] MEDS: traMADol 50MG tablet PO PRN ×2 (18:59→23:08)
[2017-04-29 20:00] VITALS: BP 143/77
[2017-04-30] VITALS: BP 133/72
[2017-04-30] MEDS: vancomycin inj. 750 MG in normal saline 250ml IV soln 250 ML IV SCH ×2 (00:16→13:25)
[2017-04-30] MEDS: oxyCODONE/APAP 5-325mg tablet PO PRN ×4 (04:36→22:54)
[2017-04-30] MEDS: traMADol 50MG tablet PO PRN ×4 (04:36→22:54)
[2017-04-30 05:26] LABS: HEMATOCRIT 28.2 % (42.0-52.0); HEMOGLOBIN 8.9 g/dl (14.0-17.9); MEAN CORPUSCULAR HEMOGLOBIN 27.4 PG (27.0-31.0); MEAN CORPUSCULAR HGB CONC 31.6 % (33.0-36.5); MEAN CORPUSCULAR VOLUME 86.9 FL (78-98); PLATELET COUNT 660 X10'3 (140-440); RED BLOOD COUNT 3.24 X10'6 (4.70-6.10); RED CELL DISTRIBUTION WIDTH 18.4 % (11.5-14.5); WHITE BLOOD COUNT 11.2 X10'3 (4.5-11.0)
[2017-04-30 05:48] LABS: MAGNESIUM 1.7 MG/DL (1.5-2.4); POTASSIUM 3.5 MMOL/L (3.5-5.1)
[2017-04-30] MEDS: K and/or MAG REPLACEMENT MC SCH (07:59)
[2017-04-30 08:00] VITALS: BP 106/66
[2017-04-30] MEDS: nicotine 7mg patch - 24hr TD SCH (08:00)
[2017-04-30] MEDS: docusate sodium 100mg/10ml UD cup PO SCH ×2 (08:00→19:48)
[2017-04-30] MEDS: lactobacillus rhamnosus 10,000 MMU CELLS/CAPSULE PO SCH ×2 (08:06→19:48)
[2017-04-30] MEDS: pantoprazole 40mg Tablet.DR PO SCH (08:06)
[2017-04-30] MEDS: metroNIDAZOLE-Flagyl 500mg/NS 100 ML IV SCH ×3 (08:06→23:06)
[2017-04-30] MEDS: amiodarone 200mg tablet PO SCH ×2 (08:06→19:48)
[2017-04-30] MEDS: multivitamins, therapeutics tablet PO SCH (08:06)
[2017-04-30] MEDS: Protein Shake (high protein) 240ml (8oz) cup PO SCH ×3 (08:15→18:17)
[2017-04-30] MEDS: CefTRIAXone 2gm/D5W 50ml ADVTG 50 ML IV SCH (09:19)
[2017-04-30] MEDS: morphine sulfate 8 MG/ML SYRINGE IV PRN ×3 (09:45→19:48)
[2017-04-30 12:00] VITALS: BP 128/71
[2017-04-30 20:00] VITALS: BP 143/82
[2017-05-01] VITALS: BP 133/73
[2017-05-01] MEDS: vancomycin inj. 750 MG in normal saline 250ml IV soln 250 ML IV SCH ×2 (00:24→13:12)
[2017-05-01] MEDS: morphine sulfate 8 MG/ML SYRINGE IV PRN ×6 (01:37→21:19)
[2017-05-01] MEDS: oxyCODONE/APAP 5-325mg tablet PO PRN ×5 (04:48→22:42)
[2017-05-01] MEDS: traMADol 50MG tablet PO PRN ×5 (04:48→22:42)
[2017-05-01 05:29] LABS: MAGNESIUM 1.6 MG/DL (1.5-2.4); POTASSIUM 3.4 MMOL/L (3.5-5.1)
[2017-05-01 07:07] VITALS: BP 98/72
[2017-05-01] MEDS: multivitamins, therapeutics tablet PO SCH (07:19)
[2017-05-01] MEDS: metroNIDAZOLE-Flagyl 500mg/NS 100 ML IV SCH ×3 (07:19→23:14)
[2017-05-01] MEDS: docusate sodium 100mg/10ml UD cup PO SCH ×2 (07:19→19:29)
[2017-05-01] MEDS: pantoprazole 40mg Tablet.DR PO SCH (07:19)
[2017-05-01] MEDS: lactobacillus rhamnosus 10,000 MMU CELLS/CAPSULE PO SCH ×2 (07:19→19:29)
[2017-05-01] MEDS: amiodarone 200mg tablet PO SCH ×2 (07:23→19:29)
[2017-05-01] MEDS: K and/or MAG REPLACEMENT MC SCH (08:00)
[2017-05-01] MEDS: Protein Shake (high protein) 240ml (8oz) cup PO SCH ×3 (08:00→18:28)
[2017-05-01] MEDS: nicotine 7mg patch - 24hr TD SCH (08:00)
[2017-05-01] MEDS: potassium Cl 20 mEq SR tablet PO PRN ×3 (09:07→23:14)
[2017-05-01] MEDS: CefTRIAXone 2gm/NS 100ml IVPB 100 ML IV SCH (10:34)
[2017-05-01] MEDS ORDERED: VANCOMYCIN LEVEL IV ONE (11:30)
[2017-05-01 11:31] VITALS: BP 133/71
[2017-05-01 15:29] LABS: ALBUMIN 1.5 G/DL (3.4-5.0); ANION GAP 9 (8-16); BLOOD UREA NITROGEN 14 MG/DL (7-18); BUN/CREATININE RATIO 10.7 (5.4-32.0); CALCIUM 9.1 MG/DL (8.5-10.1); CHLORIDE 110 MMOL/L (99-107); CREATININE 1.31 MG/DL (0.60-1.10); GLUCOSE 137 MG/DL (70-104); POTASSIUM 3.5 MMOL/L (3.5-5.1); SODIUM 141 MMOL/L (135-145); TOTAL CARBON DIOXIDE 21.9 MMOL/L (24-32); eGFR 55 ML/MIN
[2017-05-01] MEDS ORDERED: potassium Cl 20 mEq SR tablet PO PRN (18:30)
[2017-05-01] MEDS ORDERED: potassium Cl 40MEQ/NS 500ml 500 ML IV PRN ×2 (18:30)
[2017-05-01] MEDS ORDERED: magnesium Cl slow-release 64mg tablet PO PRN (18:30)
[2017-05-01] MEDS ORDERED: magnesium 4gm in 100ml NS 100 ML IV PRN (18:30)
[2017-05-01] MEDS ORDERED: magnesium 2GM in 50ml NS 50 ML IV PRN (18:30)
[2017-05-01 20:00] VITALS: BP 138/68
[2017-05-01] MEDS ORDERED: vancomycin 750mg inj ONE (23:35)
[2017-05-02] VITALS: BP 143/77
[2017-05-02] MEDS: vancomycin inj 500 MG in normal saline 100ml IV soln 100 ML IV SCH ×2 (00:20→12:17)
[2017-05-02] MEDS: traMADol 50MG tablet PO PRN (02:26)
[2017-05-02] MEDS: oxyCODONE/APAP 5-325mg tablet PO PRN ×3 (02:26→14:23)
[2017-05-02 05:42] LABS: MAGNESIUM 1.8 MG/DL (1.5-2.4); POTASSIUM 3.6 MMOL/L (3.5-5.1)
[2017-05-02] MEDS: ALPRAZolam 0.25mg tablet PO PRN ×2 (06:04→14:23)
[2017-05-02] MEDS: K and/or MAG REPLACEMENT MC SCH (07:14)
[2017-05-02] MEDS: multivitamins, therapeutics tablet PO SCH (07:20)
[2017-05-02] MEDS: pantoprazole 40mg Tablet.DR PO SCH (07:20)
[2017-05-02] MEDS: lactobacillus rhamnosus 10,000 MMU CELLS/CAPSULE PO SCH ×2 (07:20→19:38)
[2017-05-02] MEDS: amiodarone 200mg tablet PO SCH ×2 (07:20→19:38)
[2017-05-02] MEDS: docusate sodium 100mg/10ml UD cup PO SCH ×2 (07:21→19:38)
[2017-05-02] MEDS: metroNIDAZOLE-Flagyl 500mg/NS 100 ML IV SCH (07:22)
[2017-05-02] MEDS: CefTRIAXone 2gm/NS 100ml IVPB 100 ML IV SCH (07:22)
[2017-05-02] MEDS: morphine sulfate 8 MG/ML SYRINGE IV PRN ×5 (07:23→23:46)
[2017-05-02] MEDS: Protein Shake (high protein) 240ml (8oz) cup PO SCH ×4 (07:57→18:00)
[2017-05-02] MEDS: nicotine 7mg patch - 24hr TD SCH (07:57)
[2017-05-02 08:00] VITALS: BP 128/73
[2017-05-02] MEDS: metroNIDAZOLE 500mg tablet PO SCH ×3 (10:00→19:39)
[2017-05-02 12:00] VITALS: BP 91/66
[2017-05-02 20:00] VITALS: BP 118/71
[2017-05-02] MEDS: Dakins solution (1/4 strength) 473ml solution TP SCH (23:47)
[2017-05-03] VITALS: BP 105/59
[2017-05-03] MEDS: oxyCODONE/APAP 5-325mg tablet PO PRN ×4 (04:12→20:39)
[2017-05-03] MEDS: ALPRAZolam 0.25mg tablet PO PRN ×2 (05:14→13:32)
[2017-05-03] MEDS: morphine sulfate 8 MG/ML SYRINGE IV PRN ×3 (05:19→12:16)
[2017-05-03 07:17] VITALS: BP 109/65
[2017-05-03] MEDS: K and/or MAG REPLACEMENT MC SCH (08:00)
[2017-05-03] MEDS: nicotine 7mg patch - 24hr TD SCH (08:00)
[2017-05-03] MEDS: lactobacillus rhamnosus 10,000 MMU CELLS/CAPSULE PO SCH ×2 (08:27→20:39)
[2017-05-03] MEDS: multivitamins, therapeutics tablet PO SCH (08:27)
[2017-05-03] MEDS: pantoprazole 40mg Tablet.DR PO SCH (08:27)
[2017-05-03] MEDS: CefTRIAXone 2gm/NS 100ml IVPB 100 ML IV SCH (08:28)
[2017-05-03] MEDS: docusate sodium 100mg/10ml UD cup PO SCH ×2 (08:28→20:35)
[2017-05-03] MEDS: Protein Shake (high protein) 240ml (8oz) cup PO SCH ×3 (08:28→18:15)
[2017-05-03] MEDS: metroNIDAZOLE 500mg tablet PO SCH ×3 (08:28→17:08)
[2017-05-03] MEDS: amiodarone 200mg tablet PO SCH ×2 (08:28→20:39)
[2017-05-03] MEDS: Dakins solution (1/4 strength) 473ml solution TP SCH (08:29)
[2017-05-03 09:12] LABS: ALBUMIN 1.7 G/DL (3.4-5.0); ANION GAP 8 (8-16); BLOOD UREA NITROGEN 14 MG/DL (7-18); BUN/CREATININE RATIO 10.9 (5.4-32.0); CALCIUM 9.3 MG/DL (8.5-10.1); CHLORIDE 107 MMOL/L (99-107); CREATININE 1.29 MG/DL (0.60-1.10); GLUCOSE 120 MG/DL (70-104); POTASSIUM 3.4 MMOL/L (3.5-5.1); SODIUM 138 MMOL/L (135-145); TOTAL CARBON DIOXIDE 23.1 MMOL/L (24-32); eGFR 56 ML/MIN
[2017-05-03] MEDS: potassium Cl 20 mEq SR tablet PO PRN ×3 (10:00→17:33)
[2017-05-03] MEDS ORDERED: VANCOMYCIN LEVEL IV NR (11:30)
[2017-05-03 11:32] VITALS: BP 90/63
[2017-05-03 11:52] VITALS: BP 95/69
[2017-05-03] MEDS: vancomycin inj 500 MG in normal saline 100ml IV soln 100 ML IV SCH ×3 (13:31)
[2017-05-03 20:00] VITALS: BP 128/79
[2017-05-03] MEDS: heparin, porcine 5000 units/ml vial SQ SCH (20:38)
[2017-05-04] MEDS: nystatin 15 GM powder TP SCH ×4 (00:15→23:20)
[2017-05-04 00:30] VITALS: BP 100/66
[2017-05-04] MEDS: vancomycin inj 500 MG in normal saline 100ml IV soln 100 ML IV SCH ×3 (00:30→23:19)
[2017-05-04] MEDS: morphine sulfate 8 MG/ML SYRINGE IV PRN (00:33)
[2017-05-04] MEDS: ALPRAZolam 0.25mg tablet PO PRN ×3 (01:25→21:03)
[2017-05-04] MEDS: Dakins solution (1/4 strength) 473ml solution TP SCH ×2 (01:25→09:09)
[2017-05-04] MEDS: oxyCODONE/APAP 5-325mg tablet PO PRN ×5 (04:51→23:18)
[2017-05-04 05:37] LABS: BASOPHILS # (AUTO) 0.2 X10'3 (0-0.2); BASOPHILS % (AUTO) 1.6 % (0-1); EOSINOPHILS # (AUTO) 0.4 X10'3 (0-0.9); EOSINOPHILS % (AUTO) 3.5 % (0-6); HEMATOCRIT 28.9 % (42.0-52.0); HEMOGLOBIN 9.1 g/dl (14.0-17.9); LYMPHOCYTES # (AUTO) 1.6 X10'3 (1.1-4.8); LYMPHOCYTES % (AUTO) 13.4 % (21-51); MEAN CORPUSCULAR HEMOGLOBIN 27.3 PG (27.0-31.0); MEAN CORPUSCULAR HGB CONC 31.4 % (33.0-36.5); MEAN CORPUSCULAR VOLUME 86.7 FL (78-98); MEAN PLATELET VOLUME 8.2 FL (7.4-10.4); MONOCYTES # (AUTO) 1.3 X10'3 (0-0.9); MONOCYTES % (AUTO) 10.6 % (2-12); NEUTROPHILS # (AUTO) 8.5 X10'3 (1.8-7.7); NEUTROPHILS % (AUTO) 70.9 % (42-75); PLATELET COUNT 595 X10'3 (140-440); RED BLOOD COUNT 3.33 X10'6 (4.70-6.10); RED CELL DISTRIBUTION WIDTH 18.6 % (11.5-14.5); WHITE BLOOD COUNT 11.9 X10'3 (4.5-11.0)
[2017-05-04 07:33] VITALS: BP 95/61
[2017-05-04] MEDS: nicotine 7mg patch - 24hr TD SCH (08:00)
[2017-05-04] MEDS: K and/or MAG REPLACEMENT MC SCH (08:00)
[2017-05-04] MEDS: Protein Shake (high protein) 240ml (8oz) cup PO SCH ×3 (08:00→19:20)
[2017-05-04] MEDS: docusate sodium 100mg/10ml UD cup PO SCH ×2 (09:06→19:07)
[2017-05-04] MEDS: pantoprazole 40mg Tablet.DR PO SCH (09:07)
[2017-05-04] MEDS: multivitamins, therapeutics tablet PO SCH (09:07)
[2017-05-04] MEDS: amiodarone 200mg tablet PO SCH ×2 (09:07→19:05)
[2017-05-04] MEDS: metroNIDAZOLE 500mg tablet PO SCH ×3 (09:07→17:10)
[2017-05-04] MEDS: lactobacillus rhamnosus 10,000 MMU CELLS/CAPSULE PO SCH ×2 (09:07→19:05)
[2017-05-04] MEDS: CefTRIAXone 2gm/NS 100ml IVPB 100 ML IV SCH (09:07)
[2017-05-04] MEDS: heparin, porcine 5000 units/ml vial SQ SCH ×2 (09:08→19:07)
[2017-05-04 12:35] VITALS: BP 91/64
[2017-05-04] MEDS: Potassium Cl inj 20 MEQ in normal saline 1000ml 990 ML IV SCH (15:51)
[2017-05-04 18:00] VITALS: BP 107/72
[2017-05-05] VITALS: BP 128/80
[2017-05-05] MEDS: Dakins solution (1/4 strength) 473ml solution TP SCH ×3 (02:04→20:31)
[2017-05-05] MEDS: oxyCODONE/APAP 5-325mg tablet PO PRN ×4 (04:31→20:30)
[2017-05-05 05:10] LABS: BASOPHILS # (AUTO) 0.1 X10'3 (0-0.2); BASOPHILS % (AUTO) 0.8 % (0-1); EOSINOPHILS # (AUTO) 0.4 X10'3 (0-0.9); EOSINOPHILS % (AUTO) 3.7 % (0-6); HEMATOCRIT 27.6 % (42.0-52.0); HEMOGLOBIN 8.7 g/dl (14.0-17.9); LYMPHOCYTES # (AUTO) 1.4 X10'3 (1.1-4.8); LYMPHOCYTES % (AUTO) 11.7 % (21-51); MEAN CORPUSCULAR HEMOGLOBIN 27.1 PG (27.0-31.0); MEAN CORPUSCULAR HGB CONC 31.6 % (33.0-36.5); MEAN CORPUSCULAR VOLUME 85.9 FL (78-98); MEAN PLATELET VOLUME 7.7 FL (7.4-10.4); MONOCYTES # (AUTO) 1.4 X10'3 (0-0.9); MONOCYTES % (AUTO) 11.9 % (2-12); NEUTROPHILS # (AUTO) 8.6 X10'3 (1.8-7.7); NEUTROPHILS % (AUTO) 71.9 % (42-75); PLATELET COUNT 516 X10'3 (140-440); RED BLOOD COUNT 3.21 X10'6 (4.70-6.10); RED CELL DISTRIBUTION WIDTH 18.3 % (11.5-14.5); WHITE BLOOD COUNT 11.9 X10'3 (4.5-11.0)
[2017-05-05] MEDS: ALPRAZolam 0.25mg tablet PO PRN ×2 (05:23→13:36)
[2017-05-05 05:45] LABS: ALBUMIN 1.6 G/DL (3.4-5.0); ANION GAP 9 (8-16); BLOOD UREA NITROGEN 19 MG/DL (7-18); BUN/CREATININE RATIO 13.6 (5.4-32.0); CALCIUM 9.2 MG/DL (8.5-10.1); CHLORIDE 108 MMOL/L (99-107); GLUCOSE 130 MG/DL (70-104); POTASSIUM 3.7 MMOL/L (3.5-5.1); SODIUM 139 MMOL/L (135-145); TOTAL CARBON DIOXIDE 21.7 MMOL/L (24-32); eGFR 51 ML/MIN
[2017-05-05] MEDS: morphine sulfate 8 MG/ML SYRINGE IV PRN ×2 (06:06→12:47)
[2017-05-05] MEDS: Potassium Cl inj 20 MEQ in normal saline 1000ml 990 ML IV SCH ×2 (06:07→17:34)
[2017-05-05 07:00] VITALS: BP 105/64
[2017-05-05] MEDS: nicotine 7mg patch - 24hr TD SCH (08:00)
[2017-05-05] MEDS: K and/or MAG REPLACEMENT MC SCH (08:00)
[2017-05-05] MEDS: CefTRIAXone 2gm/NS 100ml IVPB 100 ML IV SCH (08:39)
[2017-05-05] MEDS: lactobacillus rhamnosus 10,000 MMU CELLS/CAPSULE PO SCH ×2 (08:40→20:30)
[2017-05-05] MEDS: heparin, porcine 5000 units/ml vial SQ SCH ×2 (08:40→20:31)
[2017-05-05] MEDS: metroNIDAZOLE 500mg tablet PO SCH ×3 (08:40→17:33)
[2017-05-05] MEDS: multivitamins, therapeutics tablet PO SCH (08:40)
[2017-05-05] MEDS: amiodarone 200mg tablet PO SCH ×2 (08:40→20:30)
[2017-05-05] MEDS: docusate sodium 100mg/10ml UD cup PO SCH ×2 (08:40→20:30)
[2017-05-05] MEDS: pantoprazole 40mg Tablet.DR PO SCH (08:42)
[2017-05-05] MEDS: nystatin 15 GM powder TP SCH ×3 (08:42→20:29)
[2017-05-05] MEDS: Protein Shake (high protein) 240ml (8oz) cup PO SCH ×3 (08:42→18:00)
[2017-05-05 11:35] VITALS: BP 94/65
[2017-05-05] MEDS: vancomycin inj 500 MG in normal saline 100ml IV soln 100 ML IV SCH (12:47)
[2017-05-05] MEDS: ibuprofen 200mg tablet PO SCH ×2 (13:33→17:33)
[2017-05-05 18:00] VITALS: BP 117/74
[2017-05-06] VITALS: BP 124/71
[2017-05-06] MEDS: vancomycin inj 500 MG in normal saline 100ml IV soln 100 ML IV SCH ×3 (00:02→23:35)
[2017-05-06] MEDS: oxyCODONE/APAP 5-325mg tablet PO PRN ×5 (01:46→23:35)
[2017-05-06] MEDS: Potassium Cl inj 20 MEQ in normal saline 1000ml 990 ML IV SCH ×2 (05:43→17:05)
[2017-05-06 07:00] VITALS: BP 99/79
[2017-05-06 07:22] LABS: ALBUMIN 1.6 G/DL (3.4-5.0); ANION GAP 8 (8-16); BLOOD UREA NITROGEN 18 MG/DL (7-18); CALCIUM 9.7 MG/DL (8.5-10.1); CHLORIDE 113 MMOL/L (99-107); CREATININE 1.29 MG/DL (0.60-1.10); GLUCOSE 105 MG/DL (70-104); POTASSIUM 4.2 MMOL/L (3.5-5.1); SODIUM 141 MMOL/L (135-145); TOTAL CARBON DIOXIDE 19.9 MMOL/L (24-32); eGFR 56 ML/MIN
[2017-05-06] MEDS: K and/or MAG REPLACEMENT MC SCH (08:00)
[2017-05-06] MEDS: Dakins solution (1/4 strength) 473ml solution TP SCH ×2 (08:00→19:29)
[2017-05-06] MEDS: amiodarone 200mg tablet PO SCH ×2 (08:00→19:26)
[2017-05-06] MEDS: nystatin 15 GM powder TP SCH ×3 (08:00→22:15)
[2017-05-06] MEDS: nicotine 7mg patch - 24hr TD SCH (08:00)
[2017-05-06] MEDS: CefTRIAXone 2gm/NS 100ml IVPB 100 ML IV SCH (08:14)
[2017-05-06] MEDS: metroNIDAZOLE 500mg tablet PO SCH ×3 (08:14→17:03)
[2017-05-06] MEDS: pantoprazole 40mg Tablet.DR PO SCH (08:14)
[2017-05-06] MEDS: lactobacillus rhamnosus 10,000 MMU CELLS/CAPSULE PO SCH ×2 (08:14→19:26)
[2017-05-06] MEDS: docusate sodium 100mg/10ml UD cup PO SCH ×2 (08:15→19:26)
[2017-05-06] MEDS: multivitamins, therapeutics tablet PO SCH (08:15)
[2017-05-06] MEDS: ibuprofen 200mg tablet PO SCH ×3 (08:15→17:03)
[2017-05-06] MEDS: heparin, porcine 5000 units/ml vial SQ SCH ×2 (08:16→19:26)
[2017-05-06] MEDS: Protein Shake (high protein) 240ml (8oz) cup PO SCH ×3 (08:22→18:19)
[2017-05-06 11:00] VITALS: BP 104/67
[2017-05-06] MEDS: morphine sulfate 8 MG/ML SYRINGE IV PRN (11:52)
[2017-05-06 18:00] VITALS: BP 122/73
[2017-05-06] MEDS: ALPRAZolam 0.25mg tablet PO PRN (22:13)
[2017-05-07] VITALS: BP 137/76
[2017-05-07] MEDS: oxyCODONE/APAP 5-325mg tablet PO PRN ×5 (04:33→21:20)
[2017-05-07 05:45] LABS: BASOPHILS # (AUTO) 0.1 X10'3 (0-0.2); EOSINOPHILS # (AUTO) 0.6 X10'3 (0-0.9); EOSINOPHILS % (AUTO) 4.8 % (0-6); HEMATOCRIT 26.7 % (42.0-52.0); HEMOGLOBIN 8.5 g/dl (14.0-17.9); LYMPHOCYTES # (AUTO) 1.5 X10'3 (1.1-4.8); LYMPHOCYTES % (AUTO) 13.1 % (21-51); MEAN CORPUSCULAR HEMOGLOBIN 27.2 PG (27.0-31.0); MEAN CORPUSCULAR HGB CONC 31.8 % (33.0-36.5); MEAN CORPUSCULAR VOLUME 85.3 FL (78-98); MEAN PLATELET VOLUME 8.1 FL (7.4-10.4); MONOCYTES # (AUTO) 1.5 X10'3 (0-0.9); MONOCYTES % (AUTO) 12.5 % (2-12); NEUTROPHILS # (AUTO) 8.1 X10'3 (1.8-7.7); NEUTROPHILS % (AUTO) 68.6 % (42-75); PLATELET COUNT 462 X10'3 (140-440); RED BLOOD COUNT 3.13 X10'6 (4.70-6.10); RED CELL DISTRIBUTION WIDTH 18.5 % (11.5-14.5); WHITE BLOOD COUNT 11.8 X10'3 (4.5-11.0)
[2017-05-07 06:20] LABS: ALBUMIN 1.6 G/DL (3.4-5.0); ANION GAP 7 (8-16); BLOOD UREA NITROGEN 15 MG/DL (7-18); BUN/CREATININE RATIO 11.4 (5.4-32.0); CALCIUM 9.4 MG/DL (8.5-10.1); CHLORIDE 109 MMOL/L (99-107); CREATININE 1.32 MG/DL (0.60-1.10); GLUCOSE 104 MG/DL (70-104); SODIUM 137 MMOL/L (135-145); TOTAL CARBON DIOXIDE 20.6 MMOL/L (24-32); eGFR 55 ML/MIN
[2017-05-07 07:00] VITALS: BP 122/69
[2017-05-07] MEDS: nicotine 7mg patch - 24hr TD SCH (08:00)
[2017-05-07] MEDS: K and/or MAG REPLACEMENT MC SCH (08:00)
[2017-05-07] MEDS: amiodarone 200mg tablet PO SCH ×2 (08:21→19:46)
[2017-05-07] MEDS: pantoprazole 40mg Tablet.DR PO SCH (08:21)
[2017-05-07] MEDS: ibuprofen 200mg tablet PO SCH ×3 (08:21→16:52)
[2017-05-07] MEDS: multivitamins, therapeutics tablet PO SCH (08:21)
[2017-05-07] MEDS: metroNIDAZOLE 500mg tablet PO SCH ×3 (08:21→16:52)
[2017-05-07] MEDS: lactobacillus rhamnosus 10,000 MMU CELLS/CAPSULE PO SCH ×2 (08:21→19:46)
[2017-05-07] MEDS: CefTRIAXone 2gm/NS 100ml IVPB 100 ML IV SCH (08:22)
[2017-05-07] MEDS: Protein Shake (high protein) 240ml (8oz) cup PO SCH ×3 (08:31→17:58)
[2017-05-07] MEDS: docusate sodium 100mg/10ml UD cup PO SCH ×2 (08:31→19:46)
[2017-05-07] MEDS: heparin, porcine 5000 units/ml vial SQ SCH ×2 (08:32→19:47)
[2017-05-07] MEDS: Dakins solution (1/4 strength) 473ml solution TP SCH (08:36)
[2017-05-07] MEDS: nystatin 15 GM powder TP SCH ×2 (08:36→12:43)
[2017-05-07] MEDS: Potassium Cl inj 20 MEQ in normal saline 1000ml 990 ML IV SCH ×3 (09:33→23:57)
[2017-05-07 11:21] VITALS: BP 100/53
[2017-05-07] MEDS: vancomycin inj 500 MG in normal saline 100ml IV soln 100 ML IV SCH (12:45)
[2017-05-07] MEDS: morphine sulfate 8 MG/ML SYRINGE IV PRN ×2 (15:54→23:54)
[2017-05-07] MEDS: ALPRAZolam 0.25mg tablet PO PRN (19:47)
[2017-05-07 20:00] VITALS: BP 97/65
[2017-05-08] VITALS: BP 132/72
[2017-05-08] MEDS: Dakins solution (1/4 strength) 473ml solution TP SCH ×2 (00:23→08:00)
[2017-05-08] MEDS: nystatin 15 GM powder TP SCH ×4 (00:23→21:00)
[2017-05-08] MEDS: oxyCODONE/APAP 5-325mg tablet PO PRN ×4 (01:39→22:18)
[2017-05-08 05:59] LABS: BASOPHILS # (AUTO) 0.1 X10'3 (0-0.2); BASOPHILS % (AUTO) 0.5 % (0-1); EOSINOPHILS # (AUTO) 0.5 X10'3 (0-0.9); EOSINOPHILS % (AUTO) 3.6 % (0-6); HEMOGLOBIN 8.9 g/dl (14.0-17.9); LYMPHOCYTES # (AUTO) 1.3 X10'3 (1.1-4.8); LYMPHOCYTES % (AUTO) 10.1 % (21-51); MEAN CORPUSCULAR HEMOGLOBIN 27.3 PG (27.0-31.0); MEAN CORPUSCULAR HGB CONC 31.7 % (33.0-36.5); MEAN CORPUSCULAR VOLUME 85.9 FL (78-98); MONOCYTES # (AUTO) 0.9 X10'3 (0-0.9); MONOCYTES % (AUTO) 7.3 % (2-12); NEUTROPHILS % (AUTO) 78.5 % (42-75); PLATELET COUNT 422 X10'3 (140-440); RED BLOOD COUNT 3.26 X10'6 (4.70-6.10); RED CELL DISTRIBUTION WIDTH 18.6 % (11.5-14.5); WHITE BLOOD COUNT 12.8 X10'3 (4.5-11.0)
[2017-05-08 06:00] VITALS: BP 134/71
[2017-05-08 06:09] LABS: ALBUMIN 1.7 G/DL (3.4-5.0); ANION GAP 8 (8-16); BLOOD UREA NITROGEN 18 MG/DL (7-18); BUN/CREATININE RATIO 12.7 (5.4-32.0); CALCIUM 9.3 MG/DL (8.5-10.1); CHLORIDE 109 MMOL/L (99-107); CREATININE 1.42 MG/DL (0.60-1.10); GLUCOSE 108 MG/DL (70-104); POTASSIUM 4.2 MMOL/L (3.5-5.1); SODIUM 137 MMOL/L (135-145); TOTAL CARBON DIOXIDE 19.8 MMOL/L (24-32); eGFR 51 ML/MIN
[2017-05-08] MEDS: lactobacillus rhamnosus 10,000 MMU CELLS/CAPSULE PO SCH ×2 (07:30→08:00)
[2017-05-08] MEDS: pantoprazole 40mg Tablet.DR PO SCH (08:00)
[2017-05-08] MEDS: heparin, porcine 5000 units/ml vial SQ SCH ×2 (08:00→20:00)
[2017-05-08] MEDS: docusate sodium 100mg/10ml UD cup PO SCH ×2 (08:00→20:00)
[2017-05-08] MEDS: Protein Shake (high protein) 240ml (8oz) cup PO SCH ×2 (08:00→18:00)
[2017-05-08] MEDS: K and/or MAG REPLACEMENT MC SCH (08:00)
[2017-05-08] MEDS: nicotine 7mg patch - 24hr TD SCH (08:00)
[2017-05-08 08:57] LABS: TOTAL CELLS COUNTED 100
[2017-05-08 08:59] LABS: ANISOCYTOSIS 2+; PLATELET ESTIMATE NORMAL
[2017-05-08 09:03] LABS: HYPOCHROMASIA 1+; SCHISTOCYTES FEW; TARGET CELLS FEW
[2017-05-08] MEDS: CefTRIAXone 2gm/NS 100ml IVPB 100 ML IV SCH (09:17)
[2017-05-08] MEDS: metroNIDAZOLE 500mg tablet PO SCH ×3 (09:18→18:43)
[2017-05-08] MEDS: amiodarone 200mg tablet PO SCH ×2 (09:18→20:00)
[2017-05-08 10:53] VITALS: BP 132/72
[2017-05-08] MEDS: multivitamins, therapeutics tablet PO SCH (11:29)
[2017-05-08] MEDS: ALPRAZolam 0.25mg tablet PO PRN (11:29)
[2017-05-08] MEDS: ibuprofen 200mg tablet PO SCH ×3 (11:30→17:30)
[2017-05-08] MEDS: vancomycin inj 500 MG in normal saline 100ml IV soln 100 ML IV SCH ×4 (12:00→23:32)
[2017-05-08] MEDS: morphine sulfate 8 MG/ML SYRINGE IV PRN (15:17)
[2017-05-08] MEDS: oxyCODONE/APAP 10/325mg tablet PO PRN (16:06)
[2017-05-08] MEDS: Potassium Cl inj 20 MEQ in normal saline 1000ml 990 ML IV SCH (18:50)
[2017-05-08 19:00] VITALS: BP 160/97
[2017-05-09] VITALS (7 sets, daily range): BP systolic 101–160; BP diastolic 65–97
[2017-05-09] MEDS: morphine sulfate 8 MG/ML SYRINGE IV PRN (03:37)
[2017-05-09] MEDS: Dakins solution (1/4 strength) 473ml solution TP SCH ×3 (03:45→23:18)
[2017-05-09] MEDS: oxyCODONE/APAP 5-325mg tablet PO PRN ×2 (04:24→23:17)
[2017-05-09] MEDS: Potassium Cl inj 20 MEQ in normal saline 1000ml 990 ML IV SCH ×2 (07:20→19:50)
[2017-05-09] MEDS: docusate sodium 100mg/10ml UD cup PO SCH ×2 (08:00→23:14)
[2017-05-09] MEDS: K and/or MAG REPLACEMENT MC SCH (08:00)
[2017-05-09] MEDS: nicotine 7mg patch - 24hr TD SCH (08:00)
[2017-05-09] MEDS: nystatin 15 GM powder TP SCH ×3 (08:00→23:16)
[2017-05-09] MEDS: pantoprazole 40mg Tablet.DR PO SCH (08:01)
[2017-05-09] MEDS: lactobacillus rhamnosus 10,000 MMU CELLS/CAPSULE PO SCH ×2 (08:01→23:14)
[2017-05-09] MEDS: multivitamins, therapeutics tablet PO SCH (08:01)
[2017-05-09] MEDS: ALPRAZolam 0.25mg tablet PO PRN (08:01)
[2017-05-09] MEDS: metroNIDAZOLE 500mg tablet PO SCH ×3 (08:02→18:00)
[2017-05-09] MEDS: ibuprofen 200mg tablet PO SCH ×3 (08:02→17:30)
[2017-05-09] MEDS: amiodarone 200mg tablet PO SCH ×2 (08:12→23:18)
[2017-05-09] MEDS: heparin, porcine 5000 units/ml vial SQ SCH ×2 (08:12→23:16)
[2017-05-09] MEDS: Protein Shake (high protein) 240ml (8oz) cup PO SCH ×3 (08:22→18:00)
[2017-05-09] MEDS: CefTRIAXone 2gm/NS 100ml IVPB 100 ML IV SCH (08:23)
[2017-05-09] MEDS: vancomycin inj 500 MG in normal saline 100ml IV soln 100 ML IV SCH ×2 (11:50→23:16)
[2017-05-10] VITALS: BP 100/58
[2017-05-10] MEDS: morphine sulfate 8 MG/ML SYRINGE IV PRN ×2 (02:45→11:35)
[2017-05-10] MEDS: oxyCODONE/APAP 10/325mg tablet PO PRN (03:16)
[2017-05-10] MEDS: Potassium Cl inj 20 MEQ in normal saline 1000ml 990 ML IV SCH ×2 (03:20→21:40)
[2017-05-10] MEDS: ALPRAZolam 0.25mg tablet PO PRN ×2 (05:35→22:18)
[2017-05-10 07:00] VITALS: BP 103/59
[2017-05-10] MEDS: Protein Shake (high protein) 240ml (8oz) cup PO SCH ×3 (08:00→18:00)
[2017-05-10] MEDS: K and/or MAG REPLACEMENT MC SCH (08:00)
[2017-05-10] MEDS: Dakins solution (1/4 strength) 473ml solution TP SCH ×2 (08:00→19:23)
[2017-05-10] MEDS: nicotine 7mg patch - 24hr TD SCH (08:00)
[2017-05-10 08:09] LABS: BASOPHILS # (AUTO) 0.1 X10'3 (0-0.2); BASOPHILS % (AUTO) 0.6 % (0-1); EOSINOPHILS # (AUTO) 0.6 X10'3 (0-0.9); EOSINOPHILS % (AUTO) 4.4 % (0-6); HEMATOCRIT 31.1 % (42.0-52.0); HEMOGLOBIN 9.8 g/dl (14.0-17.9); LYMPHOCYTES # (AUTO) 1.9 X10'3 (1.1-4.8); LYMPHOCYTES % (AUTO) 13.7 % (21-51); MEAN CORPUSCULAR HEMOGLOBIN 27.3 PG (27.0-31.0); MEAN CORPUSCULAR HGB CONC 31.6 % (33.0-36.5); MEAN CORPUSCULAR VOLUME 86.4 FL (78-98); MEAN PLATELET VOLUME 7.8 FL (7.4-10.4); MONOCYTES # (AUTO) 1.1 X10'3 (0-0.9); MONOCYTES % (AUTO) 8.1 % (2-12); NEUTROPHILS # (AUTO) 10.2 X10'3 (1.8-7.7); NEUTROPHILS % (AUTO) 73.2 % (42-75); PLATELET COUNT 493 X10'3 (140-440); RED CELL DISTRIBUTION WIDTH 19.3 % (11.5-14.5)
[2017-05-10 08:20] LABS: ANION GAP 9 (8-16); BLOOD UREA NITROGEN 19 MG/DL (7-18); BUN/CREATININE RATIO 14.1 (5.4-32.0); CALCIUM 9.7 MG/DL (8.5-10.1); CHLORIDE 110 MMOL/L (99-107); CREATININE 1.35 MG/DL (0.60-1.10); GLUCOSE 108 MG/DL (70-104); POTASSIUM 4.3 MMOL/L (3.5-5.1); SODIUM 138 MMOL/L (135-145); TOTAL CARBON DIOXIDE 19.1 MMOL/L (24-32); eGFR 54 ML/MIN
[2017-05-10] MEDS: amiodarone 200mg tablet PO SCH ×2 (08:40→19:12)
[2017-05-10] MEDS: docusate sodium 100mg/10ml UD cup PO SCH ×2 (08:40→19:11)
[2017-05-10] MEDS: ibuprofen 200mg tablet PO SCH ×3 (08:40→17:52)
[2017-05-10] MEDS: multivitamins, therapeutics tablet PO SCH (08:40)
[2017-05-10] MEDS: metroNIDAZOLE 500mg tablet PO SCH ×3 (08:40→18:16)
[2017-05-10] MEDS: pantoprazole 40mg Tablet.DR PO SCH (08:40)
[2017-05-10] MEDS: lactobacillus rhamnosus 10,000 MMU CELLS/CAPSULE PO SCH ×2 (08:40→19:12)
[2017-05-10] MEDS: CefTRIAXone 2gm/NS 100ml IVPB 100 ML IV SCH (08:41)
[2017-05-10] MEDS: heparin, porcine 5000 units/ml vial SQ SCH ×2 (08:41→19:14)
[2017-05-10] MEDS: nystatin 15 GM powder TP SCH ×3 (08:41→19:20)
[2017-05-10] MEDS: oxyCODONE/APAP 5-325mg tablet PO PRN ×4 (10:13→23:36)
[2017-05-10 11:00] VITALS: BP 135/74
[2017-05-10] MEDS ORDERED: VANCOMYCIN LEVEL IV ONE (11:30)
[2017-05-10] MEDS: vancomycin inj 500 MG in normal saline 100ml IV soln 100 ML IV SCH ×2 (14:29→23:37)
[2017-05-10] MEDS ORDERED: tPA-cathflo 2 MG/2 ml IV flush IVF ONE (16:00)
[2017-05-10 19:00] VITALS: BP 150/84
[2017-05-11] VITALS: BP 119/71
[2017-05-11] MEDS: oxyCODONE/APAP 5-325mg tablet PO PRN ×2 (03:41→13:48)
[2017-05-11 04:09] LABS: BASOPHILS % (AUTO) 0.4 % (0-1); EOSINOPHILS # (AUTO) 0.4 X10'3 (0-0.9); EOSINOPHILS % (AUTO) 3.6 % (0-6); HEMOGLOBIN 8.3 g/dl (14.0-17.9); LYMPHOCYTES # (AUTO) 1.4 X10'3 (1.1-4.8); MEAN CORPUSCULAR HEMOGLOBIN 27.5 PG (27.0-31.0); MEAN CORPUSCULAR HGB CONC 32.1 % (33.0-36.5); MEAN CORPUSCULAR VOLUME 85.7 FL (78-98); MONOCYTES # (AUTO) 1.1 X10'3 (0-0.9); MONOCYTES % (AUTO) 8.7 % (2-12); NEUTROPHILS # (AUTO) 9.4 X10'3 (1.8-7.7); NEUTROPHILS % (AUTO) 76.3 % (42-75); PLATELET COUNT 440 X10'3 (140-440); RED BLOOD COUNT 3.03 X10'6 (4.70-6.10); RED CELL DISTRIBUTION WIDTH 18.8 % (11.5-14.5); WHITE BLOOD COUNT 12.3 X10'3 (4.5-11.0)
[2017-05-11 04:18] LABS: ALBUMIN 1.7 G/DL (3.4-5.0); ANION GAP 5 (8-16); BLOOD UREA NITROGEN 21 MG/DL (7-18); BUN/CREATININE RATIO 15.6 (5.4-32.0); CALCIUM 9.5 MG/DL (8.5-10.1); CHLORIDE 113 MMOL/L (99-107); CREATININE 1.35 MG/DL (0.60-1.10); GLUCOSE 109 MG/DL (70-104); POTASSIUM 4.2 MMOL/L (3.5-5.1); SODIUM 140 MMOL/L (135-145); TOTAL CARBON DIOXIDE 21.9 MMOL/L (24-32); eGFR 54 ML/MIN
[2017-05-11 07:03] VITALS: BP 122/79
[2017-05-11] MEDS: K and/or MAG REPLACEMENT MC SCH (07:18)
[2017-05-11] MEDS: CefTRIAXone 2gm/NS 100ml IVPB 100 ML IV SCH (07:35)
[2017-05-11] MEDS: multivitamins, therapeutics tablet PO SCH (07:36)
[2017-05-11] MEDS: oxyCODONE/APAP 10/325mg tablet PO PRN (07:36)
[2017-05-11] MEDS: pantoprazole 40mg Tablet.DR PO SCH (07:36)
[2017-05-11] MEDS: amiodarone 200mg tablet PO SCH (07:36)
[2017-05-11] MEDS: lactobacillus rhamnosus 10,000 MMU CELLS/CAPSULE PO SCH (07:36)
[2017-05-11] MEDS: ibuprofen 200mg tablet PO SCH ×2 (07:36→12:48)
[2017-05-11] MEDS: heparin, porcine 5000 units/ml vial SQ SCH (07:36)
[2017-05-11] MEDS: docusate sodium 100mg/10ml UD cup PO SCH (07:37)
[2017-05-11] MEDS: nicotine 7mg patch - 24hr TD SCH (07:37)
[2017-05-11] MEDS: metroNIDAZOLE 500mg tablet PO SCH ×2 (07:37→12:47)
[2017-05-11] MEDS: Protein Shake (high protein) 240ml (8oz) cup PO SCH ×2 (08:00→12:48)
[2017-05-11 11:40] VITALS: BP 128/64
[2017-05-11] MEDS ORDERED: VANC1VIA4 PO (11:54)
[2017-05-11] MEDS: Dakins solution (1/4 strength) 473ml solution TP SCH (12:47)
[2017-05-11] MEDS: nystatin 15 GM powder TP SCH ×2 (12:47→12:48)
[2017-05-11] MEDS: vancomycin inj 500 MG in normal saline 100ml IV soln 100 ML IV SCH (12:48)
[2017-05-11] MEDS ORDERED: PER10325T PO (13:04)
[2017-05-11] MEDS ORDERED: OMEP20CA10 PO (16:47)
== END 2017-05-11 14:45 | disposition home or self-care (01) | DRG 710 ==
LOC: ER 12:59 → ED HOLD 17:00 → SUR 3N 20:06 → CICU 2S 23:35 → SUR 3N 04-18 00:20 → PACU 04-23 14:05 → SUR 3N 04-23 17:30
PROVIDERS: ADMIT Family Medicine; ATTEND Internal Medicine
PROC: 0JBB0ZZ Excision of Perineum Subcutaneous Tissue and Fascia, Open Approach (ICD-10-PCS; principal; 2017-04-09 21:40)
PROC: 30233N1 Transfusion of Nonautologous Red Blood Cells into Peripheral Vein, Percutaneous Approach (ICD-10-PCS; 2017-04-10)
PROC: 02HV33Z Insertion of Infusion Device into Superior Vena Cava, Percutaneous Approach (ICD-10-PCS; 2017-04-10)
PROC: B548ZZA Ultrasonography of Superior Vena Cava, Guidance (ICD-10-PCS; 2017-04-10)
PROC: 0HB9XZZ Excision of Perineum Skin, External Approach (ICD-10-PCS; 2017-04-13)
PROC: 0D1N0Z4 Bypass Sigmoid Colon to Cutaneous, Open Approach (ICD-10-PCS; 2017-04-13)
PROC: 0JBB0ZZ Excision of Perineum Subcutaneous Tissue and Fascia, Open Approach (ICD-10-PCS; 2017-04-16)
PROC: 0W9J3ZX Drainage of Pelvic Cavity, Percutaneous Approach, Diagnostic (ICD-10-PCS; 2017-04-20)
PROC: 0JBB0ZZ Excision of Perineum Subcutaneous Tissue and Fascia, Open Approach (ICD-10-PCS; 2017-04-23)
PROC: 0JQ80ZZ Repair Abdomen Subcutaneous Tissue and Fascia, Open Approach (ICD-10-PCS; 2017-04-23)
PROC: 02HV33Z Insertion of Infusion Device into Superior Vena Cava, Percutaneous Approach (ICD-10-PCS; 2017-05-03)
PROC: B548ZZA Ultrasonography of Superior Vena Cava, Guidance (ICD-10-PCS; 2017-05-03)
DX: A41.02 Sepsis due to Methicillin resistant Staphylococcus aureus (principal); R65.21 Severe sepsis with septic shock; E43 Unspecified severe protein-calorie malnutrition; K65.1 Peritoneal abscess; N17.9 Acute kidney failure, unspecified; J81.1 Chronic pulmonary edema; J18.1 Lobar pneumonia, unspecified organism; E87.0 Hyperosmolality and hypernatremia; I08.1 Rheumatic disorders of both mitral and tricuspid valves; J43.9 Emphysema, unspecified; L02.31 Cutaneous abscess of buttock; E87.6 Hypokalemia; D64.9 Anemia, unspecified; F32.9 Major depressive disorder, single episode, unspecified; F41.1 Generalized anxiety disorder; I25.10 Atherosclerotic heart disease of native coronary artery without angina pectoris; I48.91 Unspecified atrial fibrillation; J98.11 Atelectasis; K21.9 Gastro-esophageal reflux disease without esophagitis; K52.9 Noninfective gastroenteritis and colitis, unspecified; E11.9 Type 2 diabetes mellitus without complications; T81.32XA Disruption of internal operation (surgical) wound, not elsewhere classified, initial encounter; Y83.8 Other surgical procedures as the cause of abnormal reaction of the patient, or of later complication, without mention of misadventure at the time of the procedure; E86.0 Dehydration; G43.909 Migraine, unspecified, not intractable, without status migrainosus; M19.90 Unspecified osteoarthritis, unspecified site; K59.00 Constipation, unspecified; K61.2 Anorectal abscess; N18.9 Chronic kidney disease, unspecified; N20.0 Calculus of kidney; F17.200 Nicotine dependence, unspecified, uncomplicated; Z96.651 Presence of right artificial knee joint; Z79.899 Other long term (current) drug therapy; Z79.01 Long term (current) use of anticoagulants; Z79.82 Long term (current) use of aspirin; Z87.442 Personal history of urinary calculi; Z68.26 Body mass index [BMI] 26.0-26.9, adult; Y92.89 Other specified places as the place of occurrence of the external cause; Z75.1 Person awaiting admission to adequate facility elsewhere
CPT/HCPCS: 10160; 36415; 36569; 36600; 71010; 71020; 74176; 76937; 77012; 80048; 80053; 80202; 80329; 81001; 82009; 82272; 82330; 82550; 82803; 82948; 83036; 83605; 83735; 83880; 83930; 84100; 84132; 84134; 84145; 84478; 84484; 84560; 85018; 85025; 85027; 85610; 85651; 85730; 86140; 86703; 86706; 86803; 86885; 86900; 86901; 86920; 87040; 87070; 87075; 87076; 87077; 87088; 87102; 87185; 87186; 93005; 93306; 93971; 94002; 94003; 94640; 94760; 96365; 96367; 96375; 97110; 97116; 97161; 97530; 99291; A4315; A4333; A4357; A4421; A4649; A6196; A6212; A6213; A6223; A6243; A6253; A6255; A6258; A6266; A6402; A6446; A6449; A7000; C1758; C9113; J0295; J0696; J1100; J1170; J1450; J1580; J1644; J1815; J1940; J2001; J2020; J2250; J2270; J2370; J2405; J2543; J2704; J2997; J3010; J3370; J3475; J3480; J3490; J7030; J7042; J7070; J7120; P9016; P9045; P9047; Q0163; Q9963

== ENCOUNTER 2017-05-14 13:19 | Emergency (ER) | payer BC, MEDICAID ==
[~2017-05-14] VITALS: Ht 172.7 cm; Wt 68.7 kg
[~2017-05-14 13:19] MED LIST changes: -FLUC100T PO; +IBUP-1985 PO; +MULT-38 PO; -NAPH1POW3 PO; +OMEP20CA10 PO; +PER10325T PO; +VANC1VIA4 PO
[2017-05-14 17:29] VITALS: BP 124/64
== END 2017-05-14 17:30 | disposition home or self-care (01) ==
LOC: ER 13:20
DX: Z43.3 Encounter for attention to colostomy (principal); R60.0 Localized edema; K61.1 Rectal abscess; I25.10 Atherosclerotic heart disease of native coronary artery without angina pectoris; G89.29 Other chronic pain; K21.9 Gastro-esophageal reflux disease without esophagitis; J43.9 Emphysema, unspecified; Z87.442 Personal history of urinary calculi; Z98.890 Other specified postprocedural states
CPT/HCPCS: 99284; A4421; A6253; A6446; A6449

== ENCOUNTER 2017-05-24 10:13 | Day surgery (SDC) | payer BC, MEDICAID ==
[2017-05-24] MEDS ORDERED: LIDOcaine 2% 5ml jelly ONE ×2 (11:25→11:47)
[2017-05-24] MEDS ORDERED: PSYL3.4P5 PO (12:16)
== END 2017-05-24 13:34 | disposition home or self-care (01) ==
LOC: WOUND CARE 10:13
PROVIDERS: ATTEND Surgery
DX: T81.89XD Other complications of procedures, not elsewhere classified, subsequent encounter (principal); S81.801D Unspecified open wound, right lower leg, subsequent encounter; S81.802D Unspecified open wound, left lower leg, subsequent encounter; I25.10 Atherosclerotic heart disease of native coronary artery without angina pectoris; J43.9 Emphysema, unspecified; K21.9 Gastro-esophageal reflux disease without esophagitis; E11.22 Type 2 diabetes mellitus with diabetic chronic kidney disease; N18.9 Chronic kidney disease, unspecified; G43.909 Migraine, unspecified, not intractable, without status migrainosus; I48.91 Unspecified atrial fibrillation; M19.90 Unspecified osteoarthritis, unspecified site; F32.9 Major depressive disorder, single episode, unspecified; F17.200 Nicotine dependence, unspecified, uncomplicated; Z68.26 Body mass index [BMI] 26.0-26.9, adult; Z86.711 Personal history of pulmonary embolism; Z79.01 Long term (current) use of anticoagulants; Z79.82 Long term (current) use of aspirin; Z79.899 Other long term (current) drug therapy; Z96.651 Presence of right artificial knee joint; X58.XXXD Exposure to other specified factors, subsequent encounter; Y83.8 Other surgical procedures as the cause of abnormal reaction of the patient, or of later complication, without mention of misadventure at the time of the procedure
CPT/HCPCS: 97597; 97598; A6196; A6243; A6266; A6446

== ENCOUNTER 2017-05-28 10:10 | Day surgery (SDC) | payer BC, MEDICAID ==
[~2017-05-28 10:10] MED LIST changes: -OMEP20CA10 PO; -PER10325T PO; +PSYL3.4P5 PO; -VANC1VIA4 PO
[2017-05-28] MEDS ORDERED: LIDOcaine 2% 5ml jelly ONE (11:40)
== END 2017-05-28 12:36 | disposition home or self-care (01) ==
LOC: WOUND CARE 10:10
PROVIDERS: ATTEND Surgery
DX: T81.89XD Other complications of procedures, not elsewhere classified, subsequent encounter (principal); T24.002D Burn of unspecified degree of unspecified site of left lower limb, except ankle and foot, subsequent encounter; T24.001D Burn of unspecified degree of unspecified site of right lower limb, except ankle and foot, subsequent encounter; L98.411 Non-pressure chronic ulcer of buttock limited to breakdown of skin; E11.22 Type 2 diabetes mellitus with diabetic chronic kidney disease; N18.9 Chronic kidney disease, unspecified; I25.10 Atherosclerotic heart disease of native coronary artery without angina pectoris; J43.9 Emphysema, unspecified; K21.9 Gastro-esophageal reflux disease without esophagitis; G43.909 Migraine, unspecified, not intractable, without status migrainosus; I48.91 Unspecified atrial fibrillation; M19.90 Unspecified osteoarthritis, unspecified site; F32.9 Major depressive disorder, single episode, unspecified; F17.200 Nicotine dependence, unspecified, uncomplicated; Z68.26 Body mass index [BMI] 26.0-26.9, adult; Z79.01 Long term (current) use of anticoagulants; Z79.82 Long term (current) use of aspirin; Z79.899 Other long term (current) drug therapy; Z86.711 Personal history of pulmonary embolism; Z96.651 Presence of right artificial knee joint; Y83.8 Other surgical procedures as the cause of abnormal reaction of the patient, or of later complication, without mention of misadventure at the time of the procedure
CPT/HCPCS: 97597; 97598; A6021; A6223; A6243; A6266; A6446

== ENCOUNTER 2017-06-01 08:51 | Outpatient (CLI) | payer MEDICAID | END 2017-06-01 09:42 | disposition home or self-care (01) | LOC: WOUND CARE 08:51 → EDSTATUS 10:00 | PROVIDERS: ATTEND Surgery | DX: T81.89XD Other complications of procedures, not elsewhere classified, subsequent encounter (principal); I25.10 Atherosclerotic heart disease of native coronary artery without angina pectoris; E11.22 Type 2 diabetes mellitus with diabetic chronic kidney disease; N18.9 Chronic kidney disease, unspecified; J43.9 Emphysema, unspecified; K21.9 Gastro-esophageal reflux disease without esophagitis; G43.909 Migraine, unspecified, not intractable, without status migrainosus; I48.91 Unspecified atrial fibrillation; M19.90 Unspecified osteoarthritis, unspecified site; F32.9 Major depressive disorder, single episode, unspecified; F17.200 Nicotine dependence, unspecified, uncomplicated; F41.1 Generalized anxiety disorder; Z68.26 Body mass index [BMI] 26.0-26.9, adult; Z79.01 Long term (current) use of anticoagulants; Z79.82 Long term (current) use of aspirin; Z79.899 Other long term (current) drug therapy; Z86.711 Personal history of pulmonary embolism; Z96.651 Presence of right artificial knee joint; Z87.442 Personal history of urinary calculi; Y83.8 Other surgical procedures as the cause of abnormal reaction of the patient, or of later complication, without mention of misadventure at the time of the procedure | CPT/HCPCS: 99211; A6021; A6206; A6243; A6266; A6446 ==

== ENCOUNTER 2017-06-04 08:53 | Day surgery (SDC) | payer MEDICAID ==
[2017-06-04] MEDS ORDERED: LIDOcaine 2% 5ml jelly ONE ×2 (09:57)
[2017-06-04] MEDS ORDERED: MYC15CR TOP (12:13)
== END 2017-06-04 11:15 | disposition home or self-care (01) ==
LOC: WOUND CARE 08:53
PROVIDERS: ATTEND Surgery
DX: T81.89XD Other complications of procedures, not elsewhere classified, subsequent encounter (principal); L98.411 Non-pressure chronic ulcer of buttock limited to breakdown of skin; L97.821 Non-pressure chronic ulcer of other part of left lower leg limited to breakdown of skin; L97.811 Non-pressure chronic ulcer of other part of right lower leg limited to breakdown of skin; E11.22 Type 2 diabetes mellitus with diabetic chronic kidney disease; N18.9 Chronic kidney disease, unspecified; I25.10 Atherosclerotic heart disease of native coronary artery without angina pectoris; J43.9 Emphysema, unspecified; K21.9 Gastro-esophageal reflux disease without esophagitis; G43.909 Migraine, unspecified, not intractable, without status migrainosus; I48.91 Unspecified atrial fibrillation; M19.90 Unspecified osteoarthritis, unspecified site; F41.1 Generalized anxiety disorder; F32.9 Major depressive disorder, single episode, unspecified; F17.200 Nicotine dependence, unspecified, uncomplicated; Z68.26 Body mass index [BMI] 26.0-26.9, adult; Z79.01 Long term (current) use of anticoagulants; Z79.82 Long term (current) use of aspirin; Z79.899 Other long term (current) drug therapy; Z86.711 Personal history of pulmonary embolism; Z87.442 Personal history of urinary calculi; Z96.651 Presence of right artificial knee joint; Y83.8 Other surgical procedures as the cause of abnormal reaction of the patient, or of later complication, without mention of misadventure at the time of the procedure
CPT/HCPCS: 97597; 97598; A6021; A6206; A6243; A6446

== ENCOUNTER 2017-06-11 08:55 | Day surgery (SDC) | payer MEDICAID ==
[~2017-06-11 08:55] MED LIST changes: +MYC15CR TOP
[2017-06-11] MEDS ORDERED: LIDOcaine 2% 5ml jelly ONE (09:39)
== END 2017-06-11 10:49 | disposition home or self-care (01) ==
LOC: WOUND CARE 08:55
PROVIDERS: ATTEND Surgery
DX: T81.89XD Other complications of procedures, not elsewhere classified, subsequent encounter (principal); T24.001D Burn of unspecified degree of unspecified site of right lower limb, except ankle and foot, subsequent encounter; T24.002D Burn of unspecified degree of unspecified site of left lower limb, except ankle and foot, subsequent encounter; L97.821 Non-pressure chronic ulcer of other part of left lower leg limited to breakdown of skin; L97.811 Non-pressure chronic ulcer of other part of right lower leg limited to breakdown of skin; L98.411 Non-pressure chronic ulcer of buttock limited to breakdown of skin; T32.0 Corrosions involving less than 10% of body surface; E11.22 Type 2 diabetes mellitus with diabetic chronic kidney disease; N18.9 Chronic kidney disease, unspecified; I25.10 Atherosclerotic heart disease of native coronary artery without angina pectoris; J43.9 Emphysema, unspecified; K21.9 Gastro-esophageal reflux disease without esophagitis; G43.909 Migraine, unspecified, not intractable, without status migrainosus; I48.91 Unspecified atrial fibrillation; M19.90 Unspecified osteoarthritis, unspecified site; F41.1 Generalized anxiety disorder; F32.9 Major depressive disorder, single episode, unspecified; F17.200 Nicotine dependence, unspecified, uncomplicated; Z68.26 Body mass index [BMI] 26.0-26.9, adult; Z79.899 Other long term (current) drug therapy; Z79.01 Long term (current) use of anticoagulants; Z79.82 Long term (current) use of aspirin; Z86.711 Personal history of pulmonary embolism; Z87.442 Personal history of urinary calculi; Z96.651 Presence of right artificial knee joint; X08.8XXD Exposure to other specified smoke, fire and flames, subsequent encounter; Y83.8 Other surgical procedures as the cause of abnormal reaction of the patient, or of later complication, without mention of misadventure at the time of the procedure
CPT/HCPCS: 97597; 97598; A6021; A6206; A6213

== ENCOUNTER 2017-06-15 08:35 | Day surgery (SDC) | payer MEDICAID ==
[2017-06-15] MEDS ORDERED: LIDOcaine 2% 5ml jelly ONE (09:48)
== END 2017-06-15 10:45 | disposition home or self-care (01) ==
LOC: WOUND CARE 08:35
PROVIDERS: ATTEND Surgery
DX: T81.89XD Other complications of procedures, not elsewhere classified, subsequent encounter (principal); T24.001D Burn of unspecified degree of unspecified site of right lower limb, except ankle and foot, subsequent encounter; T24.002D Burn of unspecified degree of unspecified site of left lower limb, except ankle and foot, subsequent encounter; L97.821 Non-pressure chronic ulcer of other part of left lower leg limited to breakdown of skin; L97.811 Non-pressure chronic ulcer of other part of right lower leg limited to breakdown of skin; L97.411 Non-pressure chronic ulcer of right heel and midfoot limited to breakdown of skin; T32.0 Corrosions involving less than 10% of body surface; E11.22 Type 2 diabetes mellitus with diabetic chronic kidney disease; N18.9 Chronic kidney disease, unspecified; I25.10 Atherosclerotic heart disease of native coronary artery without angina pectoris; J43.9 Emphysema, unspecified; K21.9 Gastro-esophageal reflux disease without esophagitis; G43.909 Migraine, unspecified, not intractable, without status migrainosus; I48.91 Unspecified atrial fibrillation; M19.90 Unspecified osteoarthritis, unspecified site; F41.1 Generalized anxiety disorder; F32.9 Major depressive disorder, single episode, unspecified; F17.200 Nicotine dependence, unspecified, uncomplicated; Z68.26 Body mass index [BMI] 26.0-26.9, adult; Z79.899 Other long term (current) drug therapy; Z79.01 Long term (current) use of anticoagulants; Z79.82 Long term (current) use of aspirin; Z86.711 Personal history of pulmonary embolism; Z87.442 Personal history of urinary calculi; Z96.651 Presence of right artificial knee joint; X08.8XXD Exposure to other specified smoke, fire and flames, subsequent encounter; Y83.8 Other surgical procedures as the cause of abnormal reaction of the patient, or of later complication, without mention of misadventure at the time of the procedure
CPT/HCPCS: 97597; 97598; A6021; A6206; A6446

== ENCOUNTER 2017-06-22 08:40 | Day surgery (SDC) | payer MEDICAID ==
[2017-06-22] MEDS ORDERED: LIDOcaine 2% 5ml jelly ONE (09:45)
== END 2017-06-22 10:30 | disposition home or self-care (01) ==
LOC: WOUND CARE 08:40
PROVIDERS: ATTEND Surgery
DX: T81.89XD Other complications of procedures, not elsewhere classified, subsequent encounter (principal); T24.001D Burn of unspecified degree of unspecified site of right lower limb, except ankle and foot, subsequent encounter; T24.002D Burn of unspecified degree of unspecified site of left lower limb, except ankle and foot, subsequent encounter; L97.821 Non-pressure chronic ulcer of other part of left lower leg limited to breakdown of skin; L97.811 Non-pressure chronic ulcer of other part of right lower leg limited to breakdown of skin; L97.411 Non-pressure chronic ulcer of right heel and midfoot limited to breakdown of skin; T32.0 Corrosions involving less than 10% of body surface; E11.22 Type 2 diabetes mellitus with diabetic chronic kidney disease; N18.9 Chronic kidney disease, unspecified; I25.10 Atherosclerotic heart disease of native coronary artery without angina pectoris; J43.9 Emphysema, unspecified; K21.9 Gastro-esophageal reflux disease without esophagitis; G43.909 Migraine, unspecified, not intractable, without status migrainosus; I48.91 Unspecified atrial fibrillation; M19.90 Unspecified osteoarthritis, unspecified site; F41.1 Generalized anxiety disorder; F32.9 Major depressive disorder, single episode, unspecified; F17.200 Nicotine dependence, unspecified, uncomplicated; Z68.26 Body mass index [BMI] 26.0-26.9, adult; Z79.899 Other long term (current) drug therapy; Z79.01 Long term (current) use of anticoagulants; Z79.82 Long term (current) use of aspirin; Z86.711 Personal history of pulmonary embolism; Z87.442 Personal history of urinary calculi; Z96.651 Presence of right artificial knee joint; X08.8XXD Exposure to other specified smoke, fire and flames, subsequent encounter; Y83.8 Other surgical procedures as the cause of abnormal reaction of the patient, or of later complication, without mention of misadventure at the time of the procedure
CPT/HCPCS: 97597; 97598; A6021; A6206; A6446

== ENCOUNTER 2017-06-29 08:32 | Day surgery (SDC) | payer MEDICAID | END 2017-06-29 10:26 | disposition home or self-care (01) | LOC: WOUND CARE 08:32 | PROVIDERS: ATTEND Surgery | DX: T81.89XD Other complications of procedures, not elsewhere classified, subsequent encounter (principal); T24.001D Burn of unspecified degree of unspecified site of right lower limb, except ankle and foot, subsequent encounter; T24.002D Burn of unspecified degree of unspecified site of left lower limb, except ankle and foot, subsequent encounter; L97.821 Non-pressure chronic ulcer of other part of left lower leg limited to breakdown of skin; L97.811 Non-pressure chronic ulcer of other part of right lower leg limited to breakdown of skin; L97.411 Non-pressure chronic ulcer of right heel and midfoot limited to breakdown of skin; T32.0 Corrosions involving less than 10% of body surface; E11.22 Type 2 diabetes mellitus with diabetic chronic kidney disease; N18.9 Chronic kidney disease, unspecified; I25.10 Atherosclerotic heart disease of native coronary artery without angina pectoris; J43.9 Emphysema, unspecified; K21.9 Gastro-esophageal reflux disease without esophagitis; G43.909 Migraine, unspecified, not intractable, without status migrainosus; I48.91 Unspecified atrial fibrillation; M19.90 Unspecified osteoarthritis, unspecified site; F41.1 Generalized anxiety disorder; F32.9 Major depressive disorder, single episode, unspecified; F17.200 Nicotine dependence, unspecified, uncomplicated; Z68.26 Body mass index [BMI] 26.0-26.9, adult; Z79.899 Other long term (current) drug therapy; Z79.01 Long term (current) use of anticoagulants; Z79.82 Long term (current) use of aspirin; Z86.711 Personal history of pulmonary embolism; Z87.442 Personal history of urinary calculi; Z96.651 Presence of right artificial knee joint; X08.8XXD Exposure to other specified smoke, fire and flames, subsequent encounter; Y83.8 Other surgical procedures as the cause of abnormal reaction of the patient, or of later complication, without mention of misadventure at the time of the procedure | CPT/HCPCS: 97597; A6021; A6196; A6446 ==

== ENCOUNTER 2017-07-06 08:32 | Day surgery (SDC) | payer MEDICAID | END 2017-07-06 10:05 | disposition home or self-care (01) | LOC: WOUND CARE 08:32 | PROVIDERS: ATTEND Surgery | DX: T81.89XD Other complications of procedures, not elsewhere classified, subsequent encounter (principal); T24.001D Burn of unspecified degree of unspecified site of right lower limb, except ankle and foot, subsequent encounter; T24.002D Burn of unspecified degree of unspecified site of left lower limb, except ankle and foot, subsequent encounter; E11.622 Type 2 diabetes mellitus with other skin ulcer; L97.821 Non-pressure chronic ulcer of other part of left lower leg limited to breakdown of skin; L97.811 Non-pressure chronic ulcer of other part of right lower leg limited to breakdown of skin; L98.411 Non-pressure chronic ulcer of buttock limited to breakdown of skin; T32.0 Corrosions involving less than 10% of body surface; E11.22 Type 2 diabetes mellitus with diabetic chronic kidney disease; N18.9 Chronic kidney disease, unspecified; I25.10 Atherosclerotic heart disease of native coronary artery without angina pectoris; J43.9 Emphysema, unspecified; K21.9 Gastro-esophageal reflux disease without esophagitis; G43.909 Migraine, unspecified, not intractable, without status migrainosus; I48.91 Unspecified atrial fibrillation; M19.90 Unspecified osteoarthritis, unspecified site; F41.1 Generalized anxiety disorder; F32.9 Major depressive disorder, single episode, unspecified; F17.200 Nicotine dependence, unspecified, uncomplicated; Z68.26 Body mass index [BMI] 26.0-26.9, adult; Z79.899 Other long term (current) drug therapy; Z79.01 Long term (current) use of anticoagulants; Z79.82 Long term (current) use of aspirin; Z86.711 Personal history of pulmonary embolism; Z87.442 Personal history of urinary calculi; Z96.651 Presence of right artificial knee joint; X08.8XXD Exposure to other specified smoke, fire and flames, subsequent encounter; Y83.8 Other surgical procedures as the cause of abnormal reaction of the patient, or of later complication, without mention of misadventure at the time of the procedure | CPT/HCPCS: 97597; A6021; A6206; A6212 ==

== ENCOUNTER 2017-07-13 08:20 | Day surgery (SDC) | payer MEDICAID ==
[2017-07-13] MEDS ORDERED: LIDOcaine 2% 5ml jelly ONE (10:40)
== END 2017-07-13 10:52 | disposition home or self-care (01) ==
LOC: WOUND CARE 08:20
PROVIDERS: ATTEND Surgery
DX: T81.89XD Other complications of procedures, not elsewhere classified, subsequent encounter (principal); T24.001D Burn of unspecified degree of unspecified site of right lower limb, except ankle and foot, subsequent encounter; T24.002D Burn of unspecified degree of unspecified site of left lower limb, except ankle and foot, subsequent encounter; E11.622 Type 2 diabetes mellitus with other skin ulcer; L97.821 Non-pressure chronic ulcer of other part of left lower leg limited to breakdown of skin; L97.811 Non-pressure chronic ulcer of other part of right lower leg limited to breakdown of skin; L98.411 Non-pressure chronic ulcer of buttock limited to breakdown of skin; T32.0 Corrosions involving less than 10% of body surface; I25.10 Atherosclerotic heart disease of native coronary artery without angina pectoris; E11.22 Type 2 diabetes mellitus with diabetic chronic kidney disease; N18.9 Chronic kidney disease, unspecified; I48.91 Unspecified atrial fibrillation; K21.9 Gastro-esophageal reflux disease without esophagitis; G43.909 Migraine, unspecified, not intractable, without status migrainosus; M19.90 Unspecified osteoarthritis, unspecified site; J43.9 Emphysema, unspecified; Z68.26 Body mass index [BMI] 26.0-26.9, adult; F41.9 Anxiety disorder, unspecified; Z79.01 Long term (current) use of anticoagulants; Z79.82 Long term (current) use of aspirin; F32.9 Major depressive disorder, single episode, unspecified; F17.210 Nicotine dependence, cigarettes, uncomplicated; Z79.899 Other long term (current) drug therapy; Z86.711 Personal history of pulmonary embolism; Z96.651 Presence of right artificial knee joint; Y83.8 Other surgical procedures as the cause of abnormal reaction of the patient, or of later complication, without mention of misadventure at the time of the procedure; X08.8XXD Exposure to other specified smoke, fire and flames, subsequent encounter
CPT/HCPCS: 17250; A6021

== ENCOUNTER 2017-07-27 08:35 | Day surgery (SDC) | payer MEDICAID ==
[~2017-07-27 08:35] MED LIST changes: -MYC15CR TOP
== END 2017-07-27 10:15 | disposition home or self-care (01) ==
LOC: WOUND CARE 08:35
PROVIDERS: ATTEND Surgery
DX: T81.89XD Other complications of procedures, not elsewhere classified, subsequent encounter (principal); T24.001D Burn of unspecified degree of unspecified site of right lower limb, except ankle and foot, subsequent encounter; T24.002D Burn of unspecified degree of unspecified site of left lower limb, except ankle and foot, subsequent encounter; E11.622 Type 2 diabetes mellitus with other skin ulcer; L97.821 Non-pressure chronic ulcer of other part of left lower leg limited to breakdown of skin; L97.811 Non-pressure chronic ulcer of other part of right lower leg limited to breakdown of skin; L98.411 Non-pressure chronic ulcer of buttock limited to breakdown of skin; T32.0 Corrosions involving less than 10% of body surface; I25.10 Atherosclerotic heart disease of native coronary artery without angina pectoris; E11.22 Type 2 diabetes mellitus with diabetic chronic kidney disease; N18.9 Chronic kidney disease, unspecified; I48.91 Unspecified atrial fibrillation; K21.9 Gastro-esophageal reflux disease without esophagitis; G43.909 Migraine, unspecified, not intractable, without status migrainosus; M19.90 Unspecified osteoarthritis, unspecified site; J43.9 Emphysema, unspecified; F32.9 Major depressive disorder, single episode, unspecified; F17.210 Nicotine dependence, cigarettes, uncomplicated; F41.9 Anxiety disorder, unspecified; Z68.26 Body mass index [BMI] 26.0-26.9, adult; Z79.01 Long term (current) use of anticoagulants; Z79.82 Long term (current) use of aspirin; Z86.711 Personal history of pulmonary embolism; Z96.651 Presence of right artificial knee joint; Y83.8 Other surgical procedures as the cause of abnormal reaction of the patient, or of later complication, without mention of misadventure at the time of the procedure; X08.8XXD Exposure to other specified smoke, fire and flames, subsequent encounter
CPT/HCPCS: 97597; A6021

== ENCOUNTER 2017-08-10 08:31 | Day surgery (SDC) | payer MEDICAID | END 2017-08-10 10:07 | disposition home or self-care (01) | LOC: WOUND CARE 08:31 | PROVIDERS: ATTEND Surgery | DX: T81.89XD Other complications of procedures, not elsewhere classified, subsequent encounter (principal); T24.001D Burn of unspecified degree of unspecified site of right lower limb, except ankle and foot, subsequent encounter; T24.002D Burn of unspecified degree of unspecified site of left lower limb, except ankle and foot, subsequent encounter; E11.622 Type 2 diabetes mellitus with other skin ulcer; L97.821 Non-pressure chronic ulcer of other part of left lower leg limited to breakdown of skin; L97.811 Non-pressure chronic ulcer of other part of right lower leg limited to breakdown of skin; T32.0 Corrosions involving less than 10% of body surface; I25.10 Atherosclerotic heart disease of native coronary artery without angina pectoris; E11.22 Type 2 diabetes mellitus with diabetic chronic kidney disease; N18.9 Chronic kidney disease, unspecified; I48.91 Unspecified atrial fibrillation; K21.9 Gastro-esophageal reflux disease without esophagitis; G43.909 Migraine, unspecified, not intractable, without status migrainosus; M19.90 Unspecified osteoarthritis, unspecified site; J43.9 Emphysema, unspecified; F41.9 Anxiety disorder, unspecified; F32.9 Major depressive disorder, single episode, unspecified; F17.210 Nicotine dependence, cigarettes, uncomplicated; Z68.26 Body mass index [BMI] 26.0-26.9, adult; Z79.01 Long term (current) use of anticoagulants; Z79.82 Long term (current) use of aspirin; Z79.899 Other long term (current) drug therapy; Z86.711 Personal history of pulmonary embolism; Z96.651 Presence of right artificial knee joint; Y83.8 Other surgical procedures as the cause of abnormal reaction of the patient, or of later complication, without mention of misadventure at the time of the procedure; X08.8XXD Exposure to other specified smoke, fire and flames, subsequent encounter | CPT/HCPCS: 97597; A6021; A6206; A6212 ==

== ENCOUNTER 2017-08-24 08:30 | Outpatient (CLI) | payer MEDICAID | END 2017-08-24 09:40 | disposition home or self-care (01) | LOC: EDSTATUS 08:30 → WOUND CARE 08:30 | PROVIDERS: ATTEND Surgery | DX: T81.89XD Other complications of procedures, not elsewhere classified, subsequent encounter (principal); T24.001D Burn of unspecified degree of unspecified site of right lower limb, except ankle and foot, subsequent encounter; T24.002D Burn of unspecified degree of unspecified site of left lower limb, except ankle and foot, subsequent encounter; T32.0 Corrosions involving less than 10% of body surface; I25.10 Atherosclerotic heart disease of native coronary artery without angina pectoris; E11.22 Type 2 diabetes mellitus with diabetic chronic kidney disease; N18.9 Chronic kidney disease, unspecified; I48.91 Unspecified atrial fibrillation; K21.9 Gastro-esophageal reflux disease without esophagitis; G43.909 Migraine, unspecified, not intractable, without status migrainosus; M19.90 Unspecified osteoarthritis, unspecified site; J43.9 Emphysema, unspecified; F41.9 Anxiety disorder, unspecified; F32.9 Major depressive disorder, single episode, unspecified; F17.210 Nicotine dependence, cigarettes, uncomplicated; Z68.26 Body mass index [BMI] 26.0-26.9, adult; Z79.01 Long term (current) use of anticoagulants; Z79.82 Long term (current) use of aspirin; Z79.899 Other long term (current) drug therapy; Z86.711 Personal history of pulmonary embolism; Z96.651 Presence of right artificial knee joint; Y83.8 Other surgical procedures as the cause of abnormal reaction of the patient, or of later complication, without mention of misadventure at the time of the procedure; X08.8XXD Exposure to other specified smoke, fire and flames, subsequent encounter | CPT/HCPCS: 99215 ==

== ENCOUNTER 2020-06-01 09:43 | Day surgery (SDC) | payer BC ==
[2020-06-01] VITALS (7 sets, daily range): BP systolic 89–139; BP diastolic 51–101
[~2020-06-01] VITALS: Ht 177.8 cm; Wt 79.6 kg
[~2020-06-01 09:43] MED LIST changes: +DIPH25CA83 PO; -MULT-38 PO; -PSYL3.4P5 PO
[2020-06-01] MEDS ORDERED: LORazepam 0.5 MG tablet PO PRN (10:15)
[2020-06-01] MEDS ORDERED: diphenhydrAMINE 25mg capsule PO PRN (10:15)
[2020-06-01] MEDS ORDERED: normal saline 1,000 ML IV SCH (10:15)
[2020-06-01] MEDS ORDERED: ASPI-611 PO (10:28)
[2020-06-01] MEDS ORDERED: ATEN25TA PO (10:28)
[2020-06-01] MEDS ORDERED: LANS30CA56 PO (10:28)
[2020-06-01] MEDS ORDERED: NITR0.4T51 SL (10:28)
[2020-06-01] MEDS ORDERED: fentaNYL/PF 50MCG/1 ML 2ML syringe ONE (11:52)
[2020-06-01] MEDS ORDERED: LIDOcaine 1% (10mg/ml)w/preservative injection 20ml MDV ONE (11:52)
[2020-06-01] MEDS ORDERED: midazolam 2 mg/2 ml injection ONE (11:52)
[2020-06-01] MEDS ORDERED: heparin 1,000unit/ml 10ml vial 10 ML ONE (11:52)
[2020-06-01] MEDS ORDERED: iohexol 350MG/ML 100ml bottle IV ONE (11:53)
[2020-06-01] MEDS ORDERED: OXAZEpam 15mg capsule PO PRN (13:35)
[2020-06-01] MEDS ORDERED: HYDROcodone/acetaminophen 10/325mg tab PO PRN (13:35)
[2020-06-01] MEDS ORDERED: ondansetron/PF 4mg/2ml inj IV PRN (13:35)
[2020-06-01] MEDS ORDERED: HYDROcodone/acetaminophen 5mg/325mg tablet PO PRN (13:35)
[2020-06-01] MEDS ORDERED: proCHLORperazine 10 MG/2 ml inj IV PRN (13:35)
--- NOTE | 2020-06-01 14:20 | NUR ---
TARA Maldonado at bedside for consultation. Pt has chosen to go home today but call Dr. Elder's to schedule. Pt was given a business card with information.
[2020-06-02] MEDS ORDERED: FLU VACC QS2020-21(6MOS UP)/PF 60 MCG/0.5 ML SYRINGE IMVAC ONE (10:00)
== END 2020-06-01 13:55 | disposition home or self-care (01) ==
LOC: SSTAY O 09:43
PROVIDERS: ATTEND Internal Medicine Interventional Cardiology
DX: R94.39 Abnormal result of other cardiovascular function study (principal); I65.23 Occlusion and stenosis of bilateral carotid arteries; I25.119 Atherosclerotic heart disease of native coronary artery with unspecified angina pectoris; N18.9 Chronic kidney disease, unspecified; I50.9 Heart failure, unspecified; M06.9 Rheumatoid arthritis, unspecified; J43.9 Emphysema, unspecified; Z86.14 Personal history of Methicillin resistant Staphylococcus aureus infection; Z79.899 Other long term (current) drug therapy; Z79.82 Long term (current) use of aspirin; G89.29 Other chronic pain; Z87.891 Personal history of nicotine dependence; Z96.651 Presence of right artificial knee joint; Z87.01 Personal history of pneumonia (recurrent); Z98.890 Other specified postprocedural states; Z80.9 Family history of malignant neoplasm, unspecified
CPT/HCPCS: 36223; 93005; 93458; 99152; C1769; J1644; J2001; J2250; J3010; J7030; Q0163; Q9967; 36216; 36217; 36227; 99153; A4620; A6258

== ENCOUNTER 2021-08-30 14:46 | Inpatient (IN) | payer BC ==
[~2021-08-30] VITALS: Ht 177.8 cm; Wt 78.1 kg
[~2021-08-30 14:46] MED LIST changes: +ASPI-611 PO; +ATEN25TA PO; -DIPH25CA83 PO; +LANS30CA56 PO; +NITR0.4T51 SL
[2021-08-30] MEDS ORDERED: IBUP-1985 PO (15:13)
[2021-08-30] MEDS ORDERED: ATOR20TA66 PO (15:19)
[2021-08-30] MEDS ORDERED: NYST1000 PO (15:19)
[2021-08-30] MEDS ORDERED: BRIM5DRO16 RIGHTEYE (15:19)
[2021-08-30] MEDS ORDERED: MULT-1085 PO (15:19)
[2021-08-30] MEDS ORDERED: CLOP75TA34 PO (15:19)
[2021-08-30 15:30] VITALS: BP 120/68
[2021-08-30 15:33] LABS: BASOPHILS # (AUTO) 0.1 X10'3 (0-0.2); EOSINOPHILS # (AUTO) 0.1 X10'3 (0-0.9); EOSINOPHILS % (AUTO) 0.7 % (0-6); HEMATOCRIT 31.1 % (42.0-52.0); LYMPHOCYTES # (AUTO) 1.9 X10'3 (1.1-4.8); LYMPHOCYTES % (AUTO) 19.6 % (21-51); MEAN CORPUSCULAR HEMOGLOBIN 27.1 PG (27.0-31.0); MEAN CORPUSCULAR HGB CONC 32.2 g/dL (33.0-36.5); MEAN PLATELET VOLUME 8.7 FL (7.4-10.4); MONOCYTES # (AUTO) 0.8 X10'3 (0-0.9); MONOCYTES % (AUTO) 8.5 % (2-12); NEUTROPHILS # (AUTO) 6.9 X10'3 (1.8-7.7); NEUTROPHILS % (AUTO) 70.2 % (42-75); PLATELET COUNT 309 X10'3 (140-440); RED CELL DISTRIBUTION WIDTH 19.9 % (11.5-14.5); WHITE BLOOD COUNT 9.9 X10'3 (4.5-11.0)
[2021-08-30 15:42] LABS: ALBUMIN 3.5 G/DL (3.4-5.0); ANION GAP 14 (8-16); BLOOD UREA NITROGEN 19 MG/DL (7-18); BUN/CREATININE RATIO 9.3 (5.4-32.0); CALCIUM 9.3 MG/DL (8.5-10.1); CHLORIDE 112 MMOL/L (99-107); CREATININE 2.05 MG/DL (0.60-1.10); GLUCOSE 143 MG/DL (70-104); SODIUM 142 MMOL/L (135-145); TOTAL CARBON DIOXIDE 16.1 MMOL/L (24-32); eGFR 33 ML/MIN
[2021-08-30 15:45] LABS: APTT 23 SECONDS (22-32)
[2021-08-30 15:48] LABS: POTASSIUM 2.8 MMOL/L (3.5-5.1)
[2021-08-30 15:49] LABS: ANISOCYTOSIS 2+; MICROCYTOSIS 1+; PLATELET ESTIMATE NORMAL
[2021-08-30 15:50] LABS: LARGE PLATELETS FEW
[2021-08-30] MEDS ORDERED: potassium Cl 20 mEq SR tablet PO STA ×2 (15:50)
[2021-08-30] MEDS ORDERED: nitroGLYCERIN-Tridil 50MG/D5W 250 ML IV ONE (17:45)
[2021-08-30] MEDS ORDERED: heparin 1,000unit/ml 10ml vial 10 ML ONE (17:46)
[2021-08-30] MEDS ORDERED: midazolam 1 mg/ML 2ml injection ONE (17:46)
[2021-08-30] MEDS ORDERED: fentaNYL/PF 50MCG/1 ML 2ML syringe ONE (17:46)
[2021-08-30] MEDS ORDERED: verapamil 2.5 mg/ml inj IV ONE (17:46)
[2021-08-30] MEDS ORDERED: iohexol 350MG/ML 100ml bottle IV ONE (17:46)
[2021-08-30] MEDS ORDERED: LIDOcaine 1% (10mg/ml)w/preservative inj. 20ml MDV ONE (17:46)
[2021-08-30] MEDS ORDERED: normal saline 1000ml 1,000 ML IV ONE (19:20)
[2021-08-30] MEDS ORDERED: ibuprofen 200mg tablet PO PRN (19:25)
[2021-08-30] MEDS ORDERED: nitroGLYCERIN 0.4mg SUBLingual tab SL PRN (19:25)
[2021-08-30 20:00] VITALS: BP 115/45
[2021-08-30] MEDS: atenolol 25mg tablet PO SCH (20:00)
[2021-08-30 22:00] VITALS: BP 122/61
[2021-08-30] MEDS: brimonidine 0.2% 5 ML ophthalmic drops RIGHTEYE SCH (22:06)
[2021-08-30] MEDS: nystatin 500,000 unit/5ML UD oral suspension PO SCH (22:06)
[2021-08-31] MEDS ORDERED: Melatonin 3mg tablet PO ONE (01:00)
[2021-08-31 02:00] VITALS: BP_SYST 115; BP_SYST 89; BP_DIAS 45; BP_DIAS 56
[2021-08-31 06:00] VITALS: BP 109/67
[2021-08-31 08:45] LABS: BASOPHILS # (AUTO) 0.1 X10'3 (0-0.2); BASOPHILS % (AUTO) 0.9 % (0-1); EOSINOPHILS # (AUTO) 0.1 X10'3 (0-0.9); EOSINOPHILS % (AUTO) 1.1 % (0-6); HEMATOCRIT 31.5 % (42.0-52.0); HEMOGLOBIN 9.6 g/dl (14.0-17.9); LYMPHOCYTES # (AUTO) 1.5 X10'3 (1.1-4.8); LYMPHOCYTES % (AUTO) 16.4 % (21-51); MEAN CORPUSCULAR HEMOGLOBIN 27.4 PG (27.0-31.0); MEAN CORPUSCULAR HGB CONC 30.4 g/dL (33.0-36.5); MEAN CORPUSCULAR VOLUME 90.3 FL (78-98); MEAN PLATELET VOLUME 9.1 FL (7.4-10.4); MONOCYTES # (AUTO) 0.7 X10'3 (0-0.9); MONOCYTES % (AUTO) 7.6 % (2-12); NEUTROPHILS # (AUTO) 6.8 X10'3 (1.8-7.7); PLATELET COUNT 249 X10'3 (140-440); RED BLOOD COUNT 3.49 X10'6 (4.70-6.10); RED CELL DISTRIBUTION WIDTH 20.6 % (11.5-14.5); WHITE BLOOD COUNT 9.1 X10'3 (4.5-11.0)
[2021-08-31 09:17] LABS: ALANINE AMINOTRANSFERASE 46 U/L (12-78); ALBUMIN 2.8 G/DL (3.4-5.0); ALBUMIN/GLOBULIN RATIO 0.8 (1.1-1.5); ALKALINE PHOSPHATASE 97 IU/L (46-116); ANION GAP 14 (8-16); ASPARTATE AMINO TRANSFERASE 41 U/L (10-37); BILIRUBIN,TOTAL 0.2 MG/DL (0.1-1.0); BLOOD UREA NITROGEN 16 MG/DL (7-18); BUN/CREATININE RATIO 9.6 (5.4-32.0); CHLORIDE 119 MMOL/L (99-107); CREATININE 1.66 MG/DL (0.60-1.10); GLUCOSE 110 MG/DL (70-104); MAGNESIUM 1.6 MG/DL (1.5-2.4); PHOSPHORUS 2.8 MG/DL (2.3-4.5); POTASSIUM 3.6 MMOL/L (3.5-5.1); SODIUM 144 MMOL/L (135-145); TOTAL PROTEIN 6.1 G/DL (6.4-8.2); eGFR 42 ML/MIN
[2021-08-31] MEDS: multivitamins, therapeutics tablet PO SCH (09:23)
[2021-08-31] MEDS: nystatin 500,000 unit/5ML UD oral suspension PO SCH ×3 (09:23→20:23)
[2021-08-31] MEDS: atorvastatin 20mg tablet PO SCH (09:23)
[2021-08-31] MEDS: brimonidine 0.2% 5 ML ophthalmic drops RIGHTEYE SCH ×2 (09:24→20:23)
[2021-08-31] MEDS: atenolol 25mg tablet PO SCH ×2 (09:24→20:00)
[2021-08-31] MEDS: aspirin 81mg, enteric-coated 1 TAB TABLET.DR PO SCH (09:24)
[2021-08-31 09:31] LABS: TOTAL CARBON DIOXIDE 10.9 MMOL/L (24-32)
[2021-08-31] MEDS ORDERED: MESSAGE TO PHARMACY IJ ONE (10:15)
[2021-08-31] MEDS ORDERED: insulin glargine (Lantus) pen - multi-dose SQ PRN (10:15)
[2021-08-31] MEDS ORDERED: Insulin Reg/NS 100units/100mL 100 ML IV SCH (10:15)
[2021-08-31] MEDS ORDERED: cefazolin/dext.iso 2gm/50ml 50 ML IV ONE (10:15)
[2021-08-31] MEDS ORDERED: vancomycin/NS 1 GM ADD-VANTAGE 250 ML IV ONE (10:15)
[2021-08-31] MEDS ORDERED: MESSAGE TO NURSING PO ONE ×4 (10:15)
[2021-08-31] MEDS ORDERED: dextrose 50%-water 50ml dispensing syringe IV PRN (10:15)
--- NOTE | 2021-08-31 10:32 | NUR ---
type and screen type and screen ordered for primary RN Naomie while on break. Ria PCU (resource)
[2021-08-31] MEDS: sodium bicarbonate (8.4%) inj. 150 MEQ in dextrose 5%-water 1,000 ML IV SCH ×2 (10:51→20:23)
[2021-08-31 11:00] VITALS: BP 128/63
[2021-08-31 11:02] LABS: APTT 26 SECONDS (22-32)
[2021-08-31 13:08] LABS: CLARITY,URINE CLEAR (Clear); COLOR,URINE YELLOW (Yellow); GLUCOSE, URINE NEGATIVE (Neg); KETONES,URINE NEGATIVE (Neg); LEUKOCYTE ESTERASE ,URINE NEGATIVE (Neg); NITRITES, URINE NEGATIVE (Neg); OCCULT BLOOD,URINE NEGATIVE (Neg); PH,URINE 6.5 (4.8-8.0); PROTEIN,URINE NEGATIVE (Neg); UROBILINOGEN,URINE 0.2 E.U/dL (0.2-1.0)
[2021-08-31 13:16] LABS: UA COLLECTION TYPE NON-SPECIFIED
[2021-08-31 15:00] VITALS: BP 114/57
--- NOTE | 2021-08-31 17:59 | NUR ---
Orientee documentation: I have reviewed and agree with all interventions, assessments performed and documented by CESAR Bautista II.
[2021-08-31 20:00] VITALS: BP 90/54
[2021-08-31] MEDS: Melatonin 3mg tablet PO SCH (20:24)
[2021-09-01 02:00] VITALS: BP 89/56
[2021-09-01] MEDS: sodium bicarbonate (8.4%) inj. 150 MEQ in dextrose 5%-water 1,000 ML IV SCH (04:31)
[2021-09-01 06:00] VITALS: BP 94/56
[2021-09-01 07:10] LABS: BASOPHILS # (AUTO) 0.1 X10'3 (0-0.2); BASOPHILS % (AUTO) 0.9 % (0-1); EOSINOPHILS # (AUTO) 0.2 X10'3 (0-0.9); EOSINOPHILS % (AUTO) 1.8 % (0-6); HEMATOCRIT 27.2 % (42.0-52.0); HEMOGLOBIN 8.8 g/dl (14.0-17.9); LYMPHOCYTES % (AUTO) 21.8 % (21-51); MEAN CORPUSCULAR HEMOGLOBIN 26.9 PG (27.0-31.0); MEAN CORPUSCULAR HGB CONC 32.3 g/dL (33.0-36.5); MEAN CORPUSCULAR VOLUME 83.1 FL (78-98); MEAN PLATELET VOLUME 8.7 FL (7.4-10.4); MONOCYTES # (AUTO) 0.9 X10'3 (0-0.9); MONOCYTES % (AUTO) 10.4 % (2-12); NEUTROPHILS # (AUTO) 5.9 X10'3 (1.8-7.7); NEUTROPHILS % (AUTO) 65.1 % (42-75); PLATELET COUNT 252 X10'3 (140-440); RED BLOOD COUNT 3.27 X10'6 (4.70-6.10); RED CELL DISTRIBUTION WIDTH 19.7 % (11.5-14.5)
[2021-09-01 07:38] LABS: ALBUMIN 2.5 G/DL (3.4-5.0); ANION GAP 12 (8-16); BLOOD UREA NITROGEN 20 MG/DL (7-18); BUN/CREATININE RATIO 13.1 (5.4-32.0); CALCIUM 7.3 MG/DL (8.5-10.1); CHLORIDE 111 MMOL/L (99-107); CREATININE 1.53 MG/DL (0.60-1.10); GLUCOSE 124 MG/DL (70-104); MAGNESIUM 1.5 MG/DL (1.5-2.4); PHOSPHORUS 2.2 MG/DL (2.3-4.5); SODIUM 143 MMOL/L (135-145); TOTAL CARBON DIOXIDE 20.1 MMOL/L (24-32); eGFR 46 ML/MIN
[2021-09-01 07:41] LABS: POTASSIUM 2.7 MMOL/L (3.5-5.1)
[2021-09-01] MEDS ORDERED: K and/or MAG REPLACEMENT MC SCH (08:00)
[2021-09-01] MEDS: atenolol 25mg tablet PO SCH ×2 (08:00→20:43)
--- NOTE | 2021-09-01 08:03 | NUR ---
Critical K 2.7. Called Rashida - he advised that I need to get orders from nephrology re: electrolyte replacement. Called Dr Frederick: he is not on until 7pm. Called Dr Brandt - left message to call back re: critical K on room 3019.
[2021-09-01] MEDS: nystatin 500,000 unit/5ML UD oral suspension PO SCH ×3 (08:16→20:42)
[2021-09-01] MEDS: multivitamins, therapeutics tablet PO SCH (08:16)
[2021-09-01] MEDS: aspirin 81mg, enteric-coated 1 TAB TABLET.DR PO SCH (08:17)
[2021-09-01] MEDS: atorvastatin 20mg tablet PO SCH (08:17)
[2021-09-01] MEDS: brimonidine 0.2% 5 ML ophthalmic drops RIGHTEYE SCH ×2 (08:18→20:41)
--- NOTE | 2021-09-01 08:46 | NUR ---
Received call back from Dr Brandt. Reduce sod bicarb gtt to 75ml/hr and replace k/mg using /2 elec protocol.
[2021-09-01] MEDS ORDERED: magnesium Cl slow-release 64mg tablet PO PRN (08:55)
[2021-09-01] MEDS ORDERED: POTASSIUM BICARB 20meq eff tab 20 MEQ TABLET.EFF PO PRN (08:55)
[2021-09-01] MEDS: POTASSIUM BICARB 20meq eff tab 20 MEQ TABLET.EFF PO PRN ×2 (09:44→13:29)
[2021-09-01] MEDS ORDERED: MESSAGE TO NURSING PO ONE (10:00)
[2021-09-01 11:00] VITALS: BP 97/50
[2021-09-01 15:00] VITALS: BP 101/54
[2021-09-01] MEDS: POTASSIUM BICARB 20meq eff tab 20 MEQ TABLET.EFF PO SCH ×2 (17:01→20:42)
--- NOTE | 2021-09-01 18:54 | NUR ---
Orientee documentation: I have reviewed and agree with all interventions, assessments performed and documented by CESAR Bautista II.
--- NOTE | 2021-09-01 19:10 | NUR ---
Patient in room PCU 3019. I have received report from LAYLA BAKER and had the opportunity to ask questions and assume patient care.
[2021-09-01 19:38] LABS: CLARITY,URINE CLEAR (Clear); COLOR,URINE YELLOW (Yellow); GLUCOSE, URINE NEGATIVE (Neg); KETONES,URINE NEGATIVE (Neg); LEUKOCYTE ESTERASE ,URINE TRACE (Neg); NITRITES, URINE NEGATIVE (Neg); OCCULT BLOOD,URINE NEGATIVE (Neg); PH,URINE 7.5 (4.8-8.0); PROTEIN,URINE NEGATIVE (Neg); UROBILINOGEN,URINE 0.2 E.U/dL (0.2-1.0)
[2021-09-01 19:39] LABS: TOTAL PROTEIN,URINE RANDOM 23.9 MG/DL
[2021-09-01 19:43] LABS: UA COLLECTION TYPE NON-SPECIFIED
[2021-09-01 19:45] VITALS: BP 115/61
[2021-09-01 20:11] LABS: BACTERIA,URINE NONE SEEN /HPF (Neg); RBC,URINE 0-2 /HPF (0-2); SQUAMOUS EPITHELIAL CELL,UR FEW /LPF (FEW); WBC,URINE 0-4 /HPF (0-4)
[2021-09-01] MEDS: Melatonin 3mg tablet PO SCH (20:42)
[2021-09-01 23:02] VITALS: BP 99/54
[2021-09-02] VITALS (25 sets, daily range): BP systolic 91–152; BP diastolic 58–79
[2021-09-02] MEDS ORDERED: nitroPRUSSIDE sod inj. 50 MG in dextrose 5%-water 248 ML IV SCH (05:30)
[2021-09-02] MEDS ORDERED: MESSAGE TO NURSING PO ONE ×5 (06:00→08:00)
[2021-09-02] MEDS ORDERED: vancomycin/NS 1 GM ADD-VANTAGE 250 ML IV ONE (06:00)
[2021-09-02] MEDS ORDERED: ceFAZolin 2gm in dextrose, iso 50 ML IV ONE (06:00)
[2021-09-02] MEDS ORDERED: gabapentin 400mg capsule PO ONE ×2 (06:00→07:05)
--- NOTE | 2021-09-02 06:08 | NUR ---
Problems reprioritized. Patient report given, questions answered & plan of care reviewed with OLIVIA Akbar.
[2021-09-02 06:37] LABS: BASOPHILS # (AUTO) 0.1 X10'3 (0-0.2); BASOPHILS % (AUTO) 0.9 % (0-1); EOSINOPHILS # (AUTO) 0.2 X10'3 (0-0.9); EOSINOPHILS % (AUTO) 1.5 % (0-6); HEMATOCRIT 27.9 % (42.0-52.0); HEMOGLOBIN 9.1 g/dl (14.0-17.9); LYMPHOCYTES # (AUTO) 1.7 X10'3 (1.1-4.8); LYMPHOCYTES % (AUTO) 16.6 % (21-51); MEAN CORPUSCULAR HEMOGLOBIN 27.1 PG (27.0-31.0); MEAN CORPUSCULAR HGB CONC 32.6 g/dL (33.0-36.5); MEAN CORPUSCULAR VOLUME 83.1 FL (78-98); MEAN PLATELET VOLUME 8.9 FL (7.4-10.4); MONOCYTES % (AUTO) 9.5 % (2-12); NEUTROPHILS # (AUTO) 7.2 X10'3 (1.8-7.7); NEUTROPHILS % (AUTO) 71.5 % (42-75); PLATELET COUNT 232 X10'3 (140-440); RED BLOOD COUNT 3.36 X10'6 (4.70-6.10); RED CELL DISTRIBUTION WIDTH 19.5 % (11.5-14.5)
[2021-09-02] MEDS ORDERED: heparin 10,000 units/1 ML INJ ONE (06:39)
[2021-09-02] MEDS ORDERED: LIDOcaine 1% (10mg/ml) 2ml vial ONE (06:39)
[2021-09-02 06:46] LABS: APTT 25 SECONDS (22-32)
[2021-09-02 06:57] LABS: ALANINE AMINOTRANSFERASE 48 U/L (12-78); ALBUMIN 2.7 G/DL (3.4-5.0); ALBUMIN/GLOBULIN RATIO 0.9 (1.1-1.5); ALKALINE PHOSPHATASE 95 IU/L (46-116); ANION GAP 10 (8-16); ASPARTATE AMINO TRANSFERASE 40 U/L (10-37); BILIRUBIN,TOTAL 0.2 MG/DL (0.1-1.0); BLOOD UREA NITROGEN 17 MG/DL (7-18); BUN/CREATININE RATIO 11.5 (5.4-32.0); CALCIUM 7.5 MG/DL (8.5-10.1); CHLORIDE 111 MMOL/L (99-107); CREATININE 1.48 MG/DL (0.60-1.10); GLUCOSE 115 MG/DL (70-104); MAGNESIUM 1.6 MG/DL (1.5-2.4); PHOSPHORUS 1.5 MG/DL (2.3-4.5); POTASSIUM 3.6 MMOL/L (3.5-5.1); SODIUM 142 MMOL/L (135-145); TOTAL CARBON DIOXIDE 21.5 MMOL/L (24-32); TOTAL PROTEIN 5.8 G/DL (6.4-8.2); eGFR 48 ML/MIN
[2021-09-02] MEDS ORDERED: ceFAZolin 1000mg inj ONE (07:03)
[2021-09-02 07:04] LABS: ANISOCYTOSIS 2+; HYPOCHROMASIA 1+; PLATELET ESTIMATE NORMAL; POLYCHROMASIA FEW
[2021-09-02 07:05] LABS: POIKILOCYTOSIS 1+
[2021-09-02] MEDS: POTASSIUM BICARB 20meq eff tab 20 MEQ TABLET.EFF PO SCH ×4 (07:06→21:40)
[2021-09-02] MEDS: aspirin 81mg, enteric-coated 1 TAB TABLET.DR PO SCH (07:07)
[2021-09-02] MEDS: atorvastatin 20mg tablet PO SCH (07:09)
[2021-09-02] MEDS: brimonidine 0.2% 5 ML ophthalmic drops RIGHTEYE SCH ×2 (07:10→21:39)
--- NOTE | 2021-09-02 07:15 | NUR ---
Dr Berman in room, asked about sched kelly and bactroban. This is for the CABG that is delayed for todays surgery. Did not administer.
--- NOTE | 2021-09-02 07:20 | NUR ---
Assessed PIV and it is leaking. OR is already here to take patient. I spoke with surgical CRN and advised I will attempt PIV placement. She called back 2 minutes later and said that Dr Berman is ready to go and to just bring the patient down.
[2021-09-02] MEDS ORDERED: fentaNYL/PF 50MCG/1 ML 2ML syringe ONE ×2 (07:27→09:17)
[2021-09-02] MEDS ORDERED: midazolam 1 mg/ML 2ml injection ONE (07:29)
[2021-09-02] MEDS ORDERED: rocuronium 10mg/ml inj IV ONE (07:31)
[2021-09-02] MEDS ORDERED: LIDOcaine 2% (20mg/ml) 5ml vial ONE (07:31)
[2021-09-02] MEDS ORDERED: etomidate 2mg/ml inj. ONE (07:31)
[2021-09-02] MEDS ORDERED: ePHEDrine 50MG/ML INJ. ONE (07:54)
[2021-09-02] MEDS ORDERED: neostigmine methylsulfate 1 MG/ML 10ml vial ONE (07:54)
[2021-09-02] MEDS ORDERED: nitroGLYCERIN in D5W 50mg/250ml (Tridil) infusion IV ONE (07:54)
--- NOTE | 2021-09-02 08:45 | NUR ---
belongings, labeled with patient sticker, was moved down to room 2044 in ICU.
[2021-09-02] MEDS ORDERED: sugammadex 200mg/2ml injection IV ONE (09:14)
--- NOTE | 2021-09-02 09:17 | NUR ---
Orientee documentation: I have reviewed and agree with all interventions, assessments performed and documented by CESAR Bautista II.
[2021-09-02] MEDS ORDERED: ondansetron/PF 4mg/2ml inj IV PRN ×2 (09:30→09:40)
[2021-09-02] MEDS ORDERED: HYDROcodone/acetaminophen 5mg/325mg tablet PO PRN ×2 (09:30)
[2021-09-02] MEDS ORDERED: albuterol 2.5 MG/3 ML nebule NEB PRN (09:30)
--- NOTE | 2021-09-02 09:32 | NUR ---
Received from OR via BED, ART LINE TO RIGHT WRIST, 20G IV TO LEFT WRIST, MIKE DRAIN TO RIGHT NECK SML AMT BLOODY DRAINAGE, DSG WITH STERI STRIPS TO RIGHT NECK CDI. PT ABLE TO MILLER, NEURO CHECKS WNL. accompanied by Anesthesiologist DR SHEPPARD AND DINING CAR WAITER/WAITRESS and report given by Anesthesiolgist. Addendum: 09/02/21 at 0911 by Macie Wesley RN Amended: Links added.
[2021-09-02] MEDS ORDERED: meperidine/PF 25mg/ml syringe IV PRN ×2 (09:40)
[2021-09-02] MEDS ORDERED: ringers solution, lacted 1,000 ML IV SCH (09:40)
[2021-09-02] MEDS ORDERED: morphine 2 MG/ML inj. syringe IV PRN (09:40)
[2021-09-02] MEDS ORDERED: proCHLORperazine 10 MG/2 ml inj IV PRN (09:40)
[2021-09-02] MEDS ORDERED: morphine 4 MG/ML inj SYRINge IV PRN (09:40)
[2021-09-02] MEDS ORDERED: dexamethasone sod phosphate 4mg/ml inj. ONE (09:55)
[2021-09-02] MEDS ORDERED: glycopyrrolate 0.2mg/ml inj ONE (09:55)
[2021-09-02] MEDS ORDERED: ondansetron/PF 4mg/2ml inj ONE (09:55)
[2021-09-02] MEDS: meperidine/PF 25mg/ml syringe IV PRN ×2 (10:04→10:43)
--- NOTE | 2021-09-02 11:02 | NUR ---
PATIENT HAS MET ALL CRITERIA FOR TRANSFER TO ICU FLOOR. VSS. DRESSINGS TO RIGHT NECK CLEAN DRY AND INTACT. BED LOW, CALL LIGHT PRESENT AND 2 RAILS UP. RN PRESENT TO ACCEPT CARE OF PATIENT AND REPORT HAS BEEN CALLED. ALL QUESTIONS ANSWERED TO ACCEPTING RN. PT TRANSPORTED TO ICU ON MONITOR. NEURO CHECKS WNL AT TIME OF TRANSF Addendum: 09/02/21 at 1115 by Macie Wesley RN Amended: Links added.
[2021-09-02] MEDS: phenylephrine 50 MG in NS 250ml IVPB IV SCH (11:59)
[2021-09-02] MEDS: mupirocin 2% nasal ointment 1gm UD NS SCH ×2 (12:00→20:22)
[2021-09-02] MEDS: multivitamins, therapeutics tablet PO SCH (12:02)
[2021-09-02] MEDS: atenolol 25mg tablet PO SCH ×2 (12:02→20:21)
[2021-09-02] MEDS: nystatin 500,000 unit/5ML UD oral suspension PO SCH ×3 (12:03→21:37)
[2021-09-02] MEDS: HYDROcodone/acetaminophen 10/325mg tab PO PRN (14:46)
[2021-09-02] MEDS: cefazolin/dext.iso 2gm/50ml 50 ML IV SCH (18:55)
[2021-09-02] MEDS ORDERED: tamsulosin 0.4mg capsule PO SCH (21:00)
[2021-09-02] MEDS: Melatonin 3mg tablet PO SCH (21:38)
[2021-09-03] VITALS (12 sets, daily range): BP systolic 97–127; BP diastolic 55–86
[2021-09-03] MEDS: HYDROcodone/acetaminophen 10/325mg tab PO PRN ×3 (00:04→11:16)
[2021-09-03] MEDS: cefazolin/dext.iso 2gm/50ml 50 ML IV SCH ×2 (00:04→07:20)
[2021-09-03 03:20] LABS: BASOPHILS % (AUTO) 0.2 % (0-1); EOSINOPHILS % (AUTO) 0 % (0-6); HEMATOCRIT 25.8 % (42.0-52.0); HEMOGLOBIN 8.3 g/dl (14.0-17.9); LYMPHOCYTES # (AUTO) 1.4 X10'3 (1.1-4.8); LYMPHOCYTES % (AUTO) 8.5 % (21-51); MEAN CORPUSCULAR HEMOGLOBIN 26.8 PG (27.0-31.0); MEAN CORPUSCULAR HGB CONC 32.1 g/dL (33.0-36.5); MEAN CORPUSCULAR VOLUME 83.5 FL (78-98); MEAN PLATELET VOLUME 9.5 FL (7.4-10.4); MONOCYTES # (AUTO) 1.2 X10'3 (0-0.9); MONOCYTES % (AUTO) 7.7 % (2-12); NEUTROPHILS # (AUTO) 13.5 X10'3 (1.8-7.7); NEUTROPHILS % (AUTO) 83.6 % (42-75); PLATELET COUNT 212 X10'3 (140-440); RED BLOOD COUNT 3.09 X10'6 (4.70-6.10); RED CELL DISTRIBUTION WIDTH 19.3 % (11.5-14.5); WHITE BLOOD COUNT 16.2 X10'3 (4.5-11.0)
[2021-09-03 03:32] LABS: ALBUMIN 2.6 G/DL (3.4-5.0); ANION GAP 7 (8-16); BLOOD UREA NITROGEN 19 MG/DL (7-18); BUN/CREATININE RATIO 13.5 (5.4-32.0); CALCIUM 7.7 MG/DL (8.5-10.1); CHLORIDE 108 MMOL/L (99-107); CREATININE 1.41 MG/DL (0.60-1.10); GLUCOSE 169 MG/DL (70-104); MAGNESIUM 1.7 MG/DL (1.5-2.4); PHOSPHORUS 1.7 MG/DL (2.3-4.5); POTASSIUM 4.6 MMOL/L (3.5-5.1); SODIUM 138 MMOL/L (135-145); eGFR 50 ML/MIN
[2021-09-03 04:53] LABS: LARGE PLATELETS FEW; PLATELET ESTIMATE NORMAL
[2021-09-03 04:54] LABS: ANISOCYTOSIS 2+; HYPOCHROMASIA 1+
[2021-09-03] MEDS: POTASSIUM BICARB 20meq eff tab 20 MEQ TABLET.EFF PO SCH (06:49)
[2021-09-03] MEDS: multivitamins, therapeutics tablet PO SCH (07:18)
[2021-09-03] MEDS: brimonidine 0.2% 5 ML ophthalmic drops RIGHTEYE SCH (07:19)
[2021-09-03] MEDS: aspirin 81mg, enteric-coated 1 TAB TABLET.DR PO SCH (07:19)
[2021-09-03] MEDS: atorvastatin 20mg tablet PO SCH (07:19)
[2021-09-03] MEDS: mupirocin 2% nasal ointment 1gm UD NS SCH (07:20)
[2021-09-03] MEDS: atenolol 25mg tablet PO SCH (07:34)
[2021-09-03] MEDS: phenylephrine 50 MG in NS 250ml IVPB IV SCH (07:35)
[2021-09-03] MEDS: nystatin 500,000 unit/5ML UD oral suspension PO SCH (07:39)
[2021-09-03] MEDS ORDERED: clopidogrel 75mg tablet PO SCH (09:30)
[2021-09-03] MEDS ORDERED: POTA-82 PO (11:05)
== END 2021-09-03 11:55 | disposition home or self-care (01) | DRG 38 ==
LOC: SSTAY O 14:46 → PCU 3S 18:30 → ICU 2S 09-02 07:53
PROVIDERS: ADMIT Internal Medicine Interventional Cardiology; ATTEND Internal Medicine Interventional Cardiology
PROC: 4A023N7 Measurement of Cardiac Sampling and Pressure, Left Heart, Percutaneous Approach (ICD-10-PCS; 2021-08-30)
PROC: B2111ZZ Fluoroscopy of Multiple Coronary Arteries using Low Osmolar Contrast (ICD-10-PCS; 2021-08-30)
PROC: 03UK0KZ Supplement Right Internal Carotid Artery with Nonautologous Tissue Substitute, Open Approach (ICD-10-PCS; 2021-09-02)
PROC: 03CH0ZZ Extirpation of Matter from Right Common Carotid Artery, Open Approach (ICD-10-PCS; 2021-09-02)
PROC: 03CM0ZZ Extirpation of Matter from Right External Carotid Artery, Open Approach (ICD-10-PCS; 2021-09-02)
PROC: 03UH0KZ Supplement Right Common Carotid Artery with Nonautologous Tissue Substitute, Open Approach (ICD-10-PCS; 2021-09-02)
PROC: 03UM0KZ Supplement Right External Carotid Artery with Nonautologous Tissue Substitute, Open Approach (ICD-10-PCS; 2021-09-02)
PROC: 03CK0ZZ Extirpation of Matter from Right Internal Carotid Artery, Open Approach (ICD-10-PCS; principal; 2021-09-02 07:54)
DX: I65.21 Occlusion and stenosis of right carotid artery (principal); E87.2 Acidosis; I13.0 Hypertensive heart and chronic kidney disease with heart failure and stage 1 through stage 4 chronic kidney disease, or unspecified chronic kidney disease; N18.4 Chronic kidney disease, stage 4 (severe); I25.10 Atherosclerotic heart disease of native coronary artery without angina pectoris; E87.6 Hypokalemia; Z20.822 Contact with and (suspected) exposure to COVID-19; I50.9 Heart failure, unspecified; G89.29 Other chronic pain; N25.89 Other disorders resulting from impaired renal tubular function; I34.0 Nonrheumatic mitral (valve) insufficiency; G43.909 Migraine, unspecified, not intractable, without status migrainosus; K21.9 Gastro-esophageal reflux disease without esophagitis; J44.9 Chronic obstructive pulmonary disease, unspecified; I73.9 Peripheral vascular disease, unspecified; Z90.49 Acquired absence of other specified parts of digestive tract; Z79.899 Other long term (current) drug therapy; Z79.82 Long term (current) use of aspirin
CPT/HCPCS: 36415; 71046; 76770; 80048; 80053; 81001; 81003; 82570; 82948; 83036; 83605; 83735; 83935; 84100; 84132; 84133; 84156; 84300; 85008; 85025; 85610; 85730; 86885; 86900; 86901; 86920; 87635; 88305; 92508; 92616; 93005; 93458; 93880; 93971; 94010; 99152; A4618; A4620; A6250; A6258; A6402; A7000; C1768; C1769; C1894; G0378; J0690; J1100; J1644; J1815; J2175; J2250; J2405; J2710; J3010; J3490; J7030; J7070; J7120; Q9967

== ENCOUNTER 2021-09-27 13:45 | Emergency (ER) | payer BC ==
[~2021-09-27] VITALS: Ht 175.3 cm; Wt 66.8 kg
[~2021-09-27 13:45] MED LIST changes: +ATOR20TA66 PO; +BRIM5DRO16 RIGHTEYE; +CLOP75TA34 PO; -LANS30CA56 PO; +MULT-1085 PO; +NYST1000 PO; +POTA-82 PO
[2021-09-27 13:52] VITALS: BP 110/69
== END 2021-09-27 16:30 | disposition home or self-care (01) ==
LOC: ER 13:45
DX: J06.9 Acute upper respiratory infection, unspecified (principal); R11.2 Nausea with vomiting, unspecified; R19.7 Diarrhea, unspecified; G43.909 Migraine, unspecified, not intractable, without status migrainosus; I25.10 Atherosclerotic heart disease of native coronary artery without angina pectoris; J43.9 Emphysema, unspecified; K21.9 Gastro-esophageal reflux disease without esophagitis; G89.29 Other chronic pain; Z87.442 Personal history of urinary calculi; Z86.19 Personal history of other infectious and parasitic diseases; Z72.89 Other problems related to lifestyle; Z90.49 Acquired absence of other specified parts of digestive tract; Z79.82 Long term (current) use of aspirin; Z79.899 Other long term (current) drug therapy
CPT/HCPCS: 71046; 99283

== ENCOUNTER 2021-10-18 08:00 | Outpatient (CLI) | payer BC ==
[2021-10-18] MEDS ORDERED: [UNRECOGNIZED DRUG - REMARK] PO (13:14)
[2021-10-18 14:05] LABS: ABG HCO3 12.8 mmol/L (22.0-26.0); ABG OXYGEN SATURATION 98.2 % (94-97); ABG PCO2 (T) 23.1 mmHg (35.0-48.0); ABG PO2 (T) 113.5 mmHg (75.0-100.0); ALLEN'S TEST POSITIVE; FCOHb 0.3 % (0.0-3.9); FMetHb 0.3 % (0.0-1.5); FO2Hb 97.6 % (94-97); TOTAL HEMOGLOBIN 9.5 G/dl (14.0-18.0)
[2021-10-18 14:17] LABS: BASOPHILS # (AUTO) 0.1 X10'3 (0-0.2); BASOPHILS % (AUTO) 1.3 % (0-1); EOSINOPHILS # (AUTO) 0.1 X10'3 (0-0.9); EOSINOPHILS % (AUTO) 0.8 % (0-6); LYMPHOCYTES # (AUTO) 1.2 X10'3 (1.1-4.8); LYMPHOCYTES % (AUTO) 15.9 % (21-51); MEAN CORPUSCULAR HEMOGLOBIN 26.1 PG (27.0-31.0); MEAN CORPUSCULAR VOLUME 84.1 FL (78-98); MEAN PLATELET VOLUME 9.1 FL (7.4-10.4); MONOCYTES # (AUTO) 0.6 X10'3 (0-0.9); MONOCYTES % (AUTO) 7.9 % (2-12); NEUTROPHILS # (AUTO) 5.8 X10'3 (1.8-7.7); NEUTROPHILS % (AUTO) 74.1 % (42-75); PRE OP HEMATOCRIT 29.6 % (42.0-52.0); PRE OP PLATELET COUNT 479 X10'3 (140-440); RED BLOOD COUNT 3.53 X10'6 (4.70-6.10); RED CELL DISTRIBUTION WIDTH 17.7 % (11.5-14.5)
[2021-10-18 14:21] LABS: PRE OP HEMOGLOBIN 9.2 g/dL (14.0-17.9)
[2021-10-18 14:31] LABS: PRE OP PROTIME 10.4 SECONDS (9.0-12.0)
[2021-10-18 14:32] LABS: ALBUMIN 3.1 G/DL (3.4-5.0); ALBUMIN/GLOBULIN RATIO 0.7 (1.1-1.5); ALKALINE PHOSPHATASE 182 IU/L (46-116); BLOOD UREA NITROGEN 21 MG/DL (7-18); BUN/CREATININE RATIO 14.1 (5.4-32.0); CALCIUM 8.8 MG/DL (8.5-10.1); CHLORIDE 112 MMOL/L (99-107); CREATININE 1.49 MG/DL (0.60-1.10); PRE OP ALT 64 U/L (30-65); PRE OP ANION GAP 13 (8-16); PRE OP AST 40 U/L (10-37); PRE OP BILIRUB, TOTAL 0.2 MG/DL (0.0-1.0); PRE OP GLUCOSE 152 MG/DL (70-104); PRE OP POTASSIUM 3.4 MMOL/L (3.4-5.1); PRE OP SODIUM 140 MMOL/L (135-145); TOTAL CARBON DIOXIDE 14.6 MMOL/L (24-32); TOTAL PROTEIN 7.4 G/DL (6.4-8.2); eGFR 47 ML/MIN
[2021-10-18 14:47] LABS: CLARITY,URINE CLEAR (Clear); COLOR,URINE YELLOW (Yellow); GLUCOSE, URINE NEGATIVE (Neg); KETONES,URINE NEGATIVE (Neg); LEUKOCYTE ESTERASE ,URINE TRACE (Neg); NITRITES, URINE NEGATIVE (Neg); OCCULT BLOOD,URINE TRACE-INTACT (Neg); PROTEIN,URINE NEGATIVE (Neg); UROBILINOGEN,URINE 0.2 E.U/dL (0.2-1.0)
[2021-10-18 14:52] LABS: UA COLLECTION TYPE CLN CATCH MIDSTREAM
[2021-10-18 14:55] LABS: SQUAMOUS EPITHELIAL CELL,UR FEW /LPF (FEW)
[2021-10-18 14:56] LABS: MUCUS STRANDS MODERATE /LPF (Neg)
[2021-10-18 14:59] LABS: BACTERIA,URINE FEW /HPF (Neg)
[2021-10-18 15:01] LABS: TRANSITIONAL EPI CELLS,URINE FEW /HPF
[2021-10-18 15:02] LABS: WBC CLUMPS,URINE MANY /HPF (NEGATIVE)
== END 2021-10-18 23:00 | disposition home or self-care (01) ==
LOC: LAB 08:00 → EDSTATUS 10-21 08:00
PROVIDERS: ATTEND Thoracic Surgery (Cardiothoracic Vascular Surgery)
DX: Z01.818 Encounter for other preprocedural examination (principal)
CPT/HCPCS: 36415; 36600; 80053; 81001; 82803; 83036; 85018; 85025; 85610; 85730; 86885; 86900; 86901; 86920; 87081; 87088; 93005

== ENCOUNTER 2021-10-26 10:12 | Inpatient (IN) | payer BC ==
[~2021-10-26] VITALS: Ht 175.3 cm; Wt 87.5 kg
[~2021-10-26 10:12] MED LIST changes: -BRIM5DRO16 RIGHTEYE; -NITR0.4T51 SL; -NYST1000 PO; -POTA-82 PO; +[UNRECOGNIZED DRUG - REMARK] PO; +albumin (human) 25% 100 ML IV solution IV ONE; +aminocaproic acid 250 MG/1 ML inj. ONE; +calcium chloride 100 MG/1 ML inj IV ONE; +heparin 10,000 units/1 ML INJ ONE; +mannitol 12.5gm/50mL VIAL IV ONE; +methylPREDNISolone sod succ 1000mg vial ONE; +phenylephrine 10mg/ml inj. ONE; +sodium bicarbonate (8.4%) 1 mEq/ml syringe ONE
[2021-10-26 11:00] VITALS: BP 98/57
[2021-10-26] MEDS ORDERED: acetaminophen 325mg tablet PO PRN (11:30)
[2021-10-26 12:03] LABS: BASOPHILS # (AUTO) 0.1 X10'3 (0-0.2); BASOPHILS % (AUTO) 0.8 % (0-1); EOSINOPHILS # (AUTO) 0.1 X10'3 (0-0.9); EOSINOPHILS % (AUTO) 1.5 % (0-6); HEMATOCRIT 30.3 % (42.0-52.0); HEMOGLOBIN 9.2 g/dl (14.0-17.9); LYMPHOCYTES # (AUTO) 1.3 X10'3 (1.1-4.8); LYMPHOCYTES % (AUTO) 14.6 % (21-51); MEAN CORPUSCULAR HEMOGLOBIN 26.1 PG (27.0-31.0); MEAN CORPUSCULAR HGB CONC 30.5 g/dL (33.0-36.5); MEAN CORPUSCULAR VOLUME 85.8 FL (78-98); MEAN PLATELET VOLUME 8.8 FL (7.4-10.4); MONOCYTES % (AUTO) 11.1 % (2-12); NEUTROPHILS # (AUTO) 6.3 X10'3 (1.8-7.7); PLATELET COUNT 334 X10'3 (140-440); RED BLOOD COUNT 3.54 X10'6 (4.70-6.10); RED CELL DISTRIBUTION WIDTH 17.5 % (11.5-14.5); WHITE BLOOD COUNT 8.8 X10'3 (4.5-11.0)
[2021-10-26 12:19] LABS: ALANINE AMINOTRANSFERASE 59 U/L (12-78); ALBUMIN 3.3 G/DL (3.4-5.0); ALBUMIN/GLOBULIN RATIO 0.8 (1.1-1.5); ALKALINE PHOSPHATASE 193 IU/L (46-116); ANION GAP 13 (8-16); ASPARTATE AMINO TRANSFERASE 34 U/L (10-37); BILIRUBIN,TOTAL 0.3 MG/DL (0.1-1.0); BLOOD UREA NITROGEN 25 MG/DL (7-18); BUN/CREATININE RATIO 12.4 (5.4-32.0); CALCIUM 9.1 MG/DL (8.5-10.1); CHLORIDE 113 MMOL/L (99-107); CREATININE 2.01 MG/DL (0.60-1.10); GLUCOSE 105 MG/DL (70-104); POTASSIUM 3.6 MMOL/L (3.5-5.1); SODIUM 141 MMOL/L (135-145); TOTAL PROTEIN 7.7 G/DL (6.4-8.2); eGFR 33 ML/MIN
--- NOTE | 2021-10-26 12:49 | NUR ---
Critical CO2 of 15 called into TARA Mendez. CO2 was 14 previously.
[2021-10-26] MEDS ORDERED: ATEN-27 PO (13:41)
--- NOTE | 2021-10-26 14:28 | NUR ---
Attempted PIV x 2 - no luck - will have CRN attempt as well.
[2021-10-26 15:00] VITALS: BP 100/76
--- NOTE | 2021-10-26 15:16 | NUR ---
CRYSTAL attempted PIV x 2 - no tomyk - essence gordon PICC nurse for assistance.
[2021-10-26] MEDS: atorvastatin 20mg tablet PO SCH (16:19)
--- NOTE | 2021-10-26 16:29 | NUR ---
Hourly roundings have been completed. Call light and personal belongings within reach. Will continue to monitor.
[2021-10-26] MEDS: potassium CL 20mEq in D5-1/2NS 1,000 ML IV SCH (16:46)
[2021-10-26] MEDS ORDERED: CLOP75TA34 PO (17:08)
--- NOTE | 2021-10-26 18:35 | NUR ---
Patient in room PCU 3010A. I have received report from OLIVIA Akbar and had the opportunity to ask questions and assume patient care.
[2021-10-26 19:20] VITALS: BP 97/52
[2021-10-26] MEDS: POTASSIUM BICARB 20meq eff tab 20 MEQ TABLET.EFF PO SCH (19:21)
[2021-10-26] MEDS: atenolol 25mg tablet PO SCH (19:27)
[2021-10-26 21:55] VITALS: BP 108/62
[2021-10-26] MEDS: sodium bicarbonate 650mg tablet PO SCH (22:04)
[2021-10-26 22:41] LABS: CLARITY,URINE CLEAR (Clear); COLOR,URINE YELLOW (Yellow); GLUCOSE, URINE NEGATIVE (Neg); KETONES,URINE NEGATIVE (Neg); LEUKOCYTE ESTERASE ,URINE NEGATIVE (Neg); NITRITES, URINE NEGATIVE (Neg); OCCULT BLOOD,URINE NEGATIVE (Neg); PROTEIN,URINE NEGATIVE (Neg); UROBILINOGEN,URINE 0.2 E.U/dL (0.2-1.0)
[2021-10-26 22:44] LABS: UA COLLECTION TYPE CLN CATCH MIDSTREAM
[2021-10-27 02:00] VITALS: BP 101/69
[2021-10-27] MEDS: potassium CL 20mEq in D5-1/2NS 1,000 ML IV SCH ×2 (04:11→19:53)
[2021-10-27 06:00] VITALS: BP 110/55
--- NOTE | 2021-10-27 06:10 | NUR ---
Problems reprioritized. Patient report given, questions answered & plan of care reviewed with OLIVIA Akbar.
[2021-10-27] MEDS: atenolol 25mg tablet PO SCH ×2 (08:30→19:53)
[2021-10-27] MEDS: POTASSIUM BICARB 20meq eff tab 20 MEQ TABLET.EFF PO SCH ×2 (08:31→20:11)
[2021-10-27] MEDS: multivitamins, therapeutics tablet PO SCH (08:31)
[2021-10-27] MEDS: aspirin 81mg, enteric-coated 1 TAB TABLET.DR PO SCH (08:31)
[2021-10-27] MEDS: sodium bicarbonate 650mg tablet PO SCH ×3 (08:31→20:16)
[2021-10-27] MEDS: atorvastatin 20mg tablet PO SCH (08:31)
[2021-10-27] MEDS ORDERED: Insulin Reg/NS 100units/100mL 100 ML IV SCH (09:40)
[2021-10-27] MEDS ORDERED: MESSAGE TO PHARMACY IJ ONE (09:40)
[2021-10-27] MEDS ORDERED: gabapentin 400mg capsule PO ONE (09:40)
[2021-10-27] MEDS ORDERED: insulin glargine (Lantus) pen - multi-dose SQ PRN (09:40)
[2021-10-27] MEDS ORDERED: dextrose 50%-water 50ml dispensing syringe IV PRN (09:40)
[2021-10-27] MEDS ORDERED: MESSAGE TO NURSING PO ONE ×5 (09:40→10:00)
[2021-10-27] MEDS ORDERED: cefazolin/dext.iso 2gm/50ml 50 ML IV ONE (09:40)
[2021-10-27 09:51] LABS: ALANINE AMINOTRANSFERASE 46 U/L (12-78); ALBUMIN 2.8 G/DL (3.4-5.0); ALBUMIN/GLOBULIN RATIO 0.7 (1.1-1.5); ALKALINE PHOSPHATASE 163 IU/L (46-116); ANION GAP 11 (8-16); ASPARTATE AMINO TRANSFERASE 28 U/L (10-37); BILIRUBIN,TOTAL 0.3 MG/DL (0.1-1.0); BLOOD UREA NITROGEN 22 MG/DL (7-18); BUN/CREATININE RATIO 11.7 (5.4-32.0); CALCIUM 8.1 MG/DL (8.5-10.1); CHLORIDE 115 MMOL/L (99-107); CREATININE 1.88 MG/DL (0.60-1.10); GLUCOSE 182 MG/DL (70-104); POTASSIUM 3.9 MMOL/L (3.5-5.1); SODIUM 140 MMOL/L (135-145); TOTAL PROTEIN 6.6 G/DL (6.4-8.2); eGFR 36 ML/MIN
[2021-10-27] MEDS ORDERED: Cefazolin 2GM/100ML NS IVPB 50 ML IV ONE (09:57)
[2021-10-27] MEDS ORDERED: Cefazolin 2GM/100ML NS IVPB 100 ML IV ONE (10:00)
[2021-10-27 10:01] LABS: TOTAL CARBON DIOXIDE 14.5 MMOL/L (24-32)
[2021-10-27 10:31] LABS: APTT 28 SECONDS (22-32)
[2021-10-27 11:00] VITALS: BP 109/58
[2021-10-27 11:45] LABS: ABG BASE EXCESS -13.6 mmol/L (-2.0-2.0); ABG HCO3 11.4 mmol/L (22.0-26.0); ABG OXYGEN SATURATION 97.1 % (94-97); ABG PCO2 (T) 23.8 mmHg (35.0-48.0); ABG PO2 (T) 94.2 mmHg (75.0-100.0); ALLEN'S TEST POSITIVE; FCOHb 0.3 % (0.0-3.9); FLOW 0 L/min; FMetHb 0.3 % (0.0-1.5); FO2Hb 96.5 % (94-97); TOTAL HEMOGLOBIN 9.2 G/dl (14.0-18.0)
[2021-10-27 15:00] VITALS: BP 96/52
[2021-10-27 18:00] VITALS: BP 148/61
[2021-10-27] MEDS: mupirocin 2% nasal ointment 1gm UD NS SCH (20:11)
[2021-10-27 22:00] VITALS: BP 107/52
[2021-10-28 02:00] VITALS: BP 119/63
[2021-10-28 02:44] LABS: BASOPHILS # (AUTO) 0.1 X10'3 (0-0.2); BASOPHILS % (AUTO) 1.1 % (0-1); EOSINOPHILS # (AUTO) 0.2 X10'3 (0-0.9); EOSINOPHILS % (AUTO) 2.8 % (0-6); HEMATOCRIT 27.1 % (42.0-52.0); HEMOGLOBIN 8.4 g/dl (14.0-17.9); LYMPHOCYTES # (AUTO) 2.1 X10'3 (1.1-4.8); LYMPHOCYTES % (AUTO) 27.8 % (21-51); MEAN CORPUSCULAR HEMOGLOBIN 26.5 PG (27.0-31.0); MEAN CORPUSCULAR HGB CONC 30.9 g/dL (33.0-36.5); MEAN CORPUSCULAR VOLUME 85.8 FL (78-98); MEAN PLATELET VOLUME 8.8 FL (7.4-10.4); MONOCYTES # (AUTO) 0.9 X10'3 (0-0.9); MONOCYTES % (AUTO) 12.1 % (2-12); NEUTROPHILS # (AUTO) 4.2 X10'3 (1.8-7.7); NEUTROPHILS % (AUTO) 56.2 % (42-75); PLATELET COUNT 254 X10'3 (140-440); RED BLOOD COUNT 3.16 X10'6 (4.70-6.10); RED CELL DISTRIBUTION WIDTH 17.4 % (11.5-14.5); WHITE BLOOD COUNT 7.5 X10'3 (4.5-11.0)
[2021-10-28 02:45] LABS: ALBUMIN 2.5 G/DL (3.4-5.0); BLOOD UREA NITROGEN 23 MG/DL (7-18); CALCIUM 8.1 MG/DL (8.5-10.1); CHLORIDE 117 MMOL/L (99-107); CREATININE 1.92 MG/DL (0.60-1.10); PRE OP ANION GAP 11 (8-16); PRE OP GLUCOSE 118 MG/DL (70-104); PRE OP POTASSIUM 3.6 MMOL/L (3.4-5.1); PRE OP SODIUM 143 MMOL/L (135-145); TOTAL CARBON DIOXIDE 15.2 MMOL/L (24-32); eGFR 35 ML/MIN
[2021-10-28] MEDS: potassium CL 20mEq in D5-1/2NS 1,000 ML IV SCH ×2 (03:02→16:50)
[2021-10-28 06:00] VITALS: BP 129/66
[2021-10-28] MEDS: mupirocin 2% nasal ointment 1gm UD NS SCH ×2 (08:00→20:00)
[2021-10-28] MEDS: POTASSIUM BICARB 20meq eff tab 20 MEQ TABLET.EFF PO SCH ×2 (09:21→20:11)
[2021-10-28] MEDS: multivitamins, therapeutics tablet PO SCH (09:22)
[2021-10-28] MEDS: aspirin 81mg, enteric-coated 1 TAB TABLET.DR PO SCH (09:22)
[2021-10-28] MEDS: atorvastatin 20mg tablet PO SCH (09:22)
[2021-10-28] MEDS: atenolol 25mg tablet PO SCH ×2 (09:23→20:00)
[2021-10-28] MEDS: sodium bicarbonate 650mg tablet PO SCH (09:23)
[2021-10-28] MEDS: sodium bicarbonate (8.4%) inj. 150 MEQ in dextrose 5%-water 1,000 ML IV SCH ×2 (10:30→20:11)
[2021-10-28 11:00] VITALS: BP 119/61
[2021-10-28 15:00] VITALS: BP 114/60
[2021-10-28 18:00] VITALS: BP 116/56
--- NOTE | 2021-10-28 18:19 | NUR ---
Pt has been able to make his needs be known thoughout shift. Call light within reach at all times. Sx was postponed d/t kid function. Nephrology has consulted and is following. Sod bicab gtt running at 100ml/hr and clean urinal in room for urine sample to be collected. Report given to NOC shift nurse, Brianna, [facility] nurse to resume care of patient. All questions, comments, concerns answered at this time.
[2021-10-28 22:00] VITALS: BP 133/64
[2021-10-28 22:23] LABS: CLARITY,URINE CLEAR (Clear); COLOR,URINE YELLOW (Yellow); GLUCOSE, URINE NEGATIVE (Neg); KETONES,URINE NEGATIVE (Neg); LEUKOCYTE ESTERASE ,URINE NEGATIVE (Neg); NITRITES, URINE NEGATIVE (Neg); OCCULT BLOOD,URINE NEGATIVE (Neg); PROTEIN,URINE NEGATIVE (Neg); UROBILINOGEN,URINE 0.2 E.U/dL (0.2-1.0)
[2021-10-28 22:28] LABS: TOTAL PROTEIN,URINE RANDOM 16.3 MG/DL
[2021-10-28 22:32] LABS: UA COLLECTION TYPE NON-SPECIFIED
[2021-10-28 23:12] LABS: UA EOSINOPHILS NO EOS /HPF
[2021-10-29] VITALS (17 sets, daily range): BP systolic 88–125; BP diastolic 47–70
[2021-10-29 03:16] LABS: BASOPHILS # (AUTO) 0.1 X10'3 (0-0.2); BASOPHILS % (AUTO) 1.2 % (0-1); EOSINOPHILS # (AUTO) 0.2 X10'3 (0-0.9); EOSINOPHILS % (AUTO) 2.6 % (0-6); HEMATOCRIT 28.6 % (42.0-52.0); HEMOGLOBIN 8.9 g/dl (14.0-17.9); LYMPHOCYTES # (AUTO) 2.1 X10'3 (1.1-4.8); LYMPHOCYTES % (AUTO) 24.5 % (21-51); MEAN CORPUSCULAR HEMOGLOBIN 26.1 PG (27.0-31.0); MEAN CORPUSCULAR HGB CONC 31.2 g/dL (33.0-36.5); MEAN CORPUSCULAR VOLUME 83.8 FL (78-98); MEAN PLATELET VOLUME 8.8 FL (7.4-10.4); MONOCYTES % (AUTO) 11.2 % (2-12); NEUTROPHILS # (AUTO) 5.3 X10'3 (1.8-7.7); NEUTROPHILS % (AUTO) 60.5 % (42-75); PLATELET COUNT 273 X10'3 (140-440); RED BLOOD COUNT 3.41 X10'6 (4.70-6.10); RED CELL DISTRIBUTION WIDTH 17.4 % (11.5-14.5); WHITE BLOOD COUNT 8.8 X10'3 (4.5-11.0)
[2021-10-29 03:23] LABS: ALBUMIN 2.6 G/DL (3.4-5.0); ANION GAP 13 (8-16); BLOOD UREA NITROGEN 22 MG/DL (7-18); BUN/CREATININE RATIO 12.8 (5.4-32.0); CALCIUM 8.2 MG/DL (8.5-10.1); CHLORIDE 114 MMOL/L (99-107); CREATININE 1.72 MG/DL (0.60-1.10); GLUCOSE 127 MG/DL (70-104); POTASSIUM 3.7 MMOL/L (3.5-5.1); SODIUM 145 MMOL/L (135-145); TOTAL CARBON DIOXIDE 18.5 MMOL/L (24-32); eGFR 40 ML/MIN
[2021-10-29] MEDS ORDERED: epiNEPHrine 1 mg/ml inj ONE (05:27)
[2021-10-29] MEDS ORDERED: ceFAZolin 1000mg inj ONE (05:28)
[2021-10-29] MEDS: potassium CL 20mEq in D5-1/2NS 1,000 ML IV SCH (06:10)
--- NOTE | 2021-10-29 06:45 | NUR ---
Patient in room PCU 3010. I have received report from REJI BAKER and had the opportunity to ask questions and assume patient care.
[2021-10-29] MEDS: atenolol 25mg tablet PO SCH (07:30)
[2021-10-29] MEDS: atorvastatin 20mg tablet PO SCH (07:31)
[2021-10-29] MEDS: aspirin 81mg, enteric-coated 1 TAB TABLET.DR PO SCH (07:31)
[2021-10-29] MEDS: multivitamins, therapeutics tablet PO SCH (07:31)
--- NOTE | 2021-10-29 07:42 | NUR ---
CLEARED WHAT MEDICATIONS WERE OKAY TO GIVE PRIOR TO CARDIAC SURGERY WITH CHARGE NURSE PATIENT WAS ABLE TO TAKE ALL OF HIS MEDICATIONS AT THIS TIME.
[2021-10-29] MEDS: mupirocin 2% nasal ointment 1gm UD NS SCH ×2 (08:00→20:00)
[2021-10-29] MEDS: POTASSIUM BICARB 20meq eff tab 20 MEQ TABLET.EFF PO SCH ×2 (08:00→20:00)
[2021-10-29] MEDS: sodium bicarbonate (8.4%) inj. 150 MEQ in dextrose 5%-water 1,000 ML IV SCH ×2 (08:48→20:16)
--- NOTE | 2021-10-29 13:00 | NUR ---
PATIENT WAITING FOR SURGERY AT THIS TIME
--- NOTE | 2021-10-29 13:20 | NUR ---
PATIENT TAKEN TO OR AT THIS TIME
[2021-10-29] MEDS ORDERED: aminocaproic acid 250 MG/1 ML inj. ONE (13:26)
[2021-10-29] MEDS ORDERED: sevoflurane 250ml liquid IH ONE (13:26)
[2021-10-29] MEDS ORDERED: protamine sulf. 10mg/ml inj. IV ONE (13:26)
[2021-10-29] MEDS ORDERED: niCARDipine in NS 40mg/200ml (0.2mg/ml) IVPB IV ONE (13:26)
[2021-10-29] MEDS ORDERED: SUFENTANIL CITRATE 50 MCG/ML 2ml ampule IV ONE (13:29)
[2021-10-29] MEDS ORDERED: MIDAZolam 1mg/ml 10ml vial ONE (13:29)
[2021-10-29 14:19] LABS: ABG BASE EXCESS -5.9 mmol/L (-2.0-2.0); ABG HCO3 19.6 mmol/L (22.0-26.0); ABG OXYGEN SATURATION 99.5 % (94-97); ABG PO2 226.3 mmHg (75.0-100.0); CL (ABG) 115 mmol/L (98-110); FCOHb 0.9 % (0.0-3.9); FMetHb 0.3 % (0.0-1.5); FO2Hb 98.3 % (94-97); GLUCOSE (ABG) 91 mg/dl (70-105); IONIZED CA (ABG) 1.19 mmol/L (1.10-1.43); K (ABG) 3.3 mmol/L (3.5-5.0); TOTAL HEMOGLOBIN 8.9 G/dl (14.0-18.0)
[2021-10-29 14:26] LABS: ACT @ 1.70 U 278 SEC (193-297); ACT @ 2.84 U 419 SEC (260-420); BASELINE ACT 126 SEC (101-148); PATIENT WEIGHT 72.0k KG
[2021-10-29 15:08] LABS: ABG BASE EXCESS VENOUS -3.9 mmol/L (-2.0 - 2.0); ABG HCO3 VENOUS 21.1 mmol/L (21.0-28.0); ABG PO2 VENOUS 42.1 mmHg (25.0-35.0); CL (ABG) 109 mmol/L (98-110); FCOHb VENOUS 1.5 %; FHHb VENOUS 21.1 %; FMetHb VENOUS 0.7 % (0.0 - 0.5); FO2Hb VENOUS 76.7 %; GLUCOSE (ABG) 108 mg/dl (70-105); IONIZED CA (ABG) 0.98 mmol/L (1.10-1.43); K (ABG) 3.5 mmol/L (3.5-5.0)
[2021-10-29 15:12] LABS: ABG BASE EXCESS -6.2 mmol/L (-2.0-2.0); ABG HCO3 18.4 mmol/L (22.0-26.0); ABG OXYGEN SATURATION 99.7 % (94-97); ABG PCO2 31.7 mmHg (35.0-48.0); ABG PO2 431.8 mmHg (75.0-100.0); CL (ABG) 110 mmol/L (98-110); FCOHb 1.5 % (0.0-3.9); FMetHb 0.3 % (0.0-1.5); FO2Hb 97.9 % (94-97); GLUCOSE (ABG) 110 mg/dl (70-105); IONIZED CA (ABG) 1.03 mmol/L (1.10-1.43); K (ABG) 3.2 mmol/L (3.5-5.0)
[2021-10-29] MEDS ORDERED: heparin 10,000 units/1 ML INJ IR ONE (15:39)
[2021-10-29] MEDS ORDERED: papaverine 30 mg/ml 2ml inj. IA ONE (15:39)
[2021-10-29 15:41] LABS: ABG BASE EXCESS -4.2 mmol/L (-2.0-2.0); ABG OXYGEN SATURATION 99.7 % (94-97); ABG PCO2 38.3 mmHg (35.0-48.0); ABG PO2 339.4 mmHg (75.0-100.0); CL (ABG) 110 mmol/L (98-110); FCOHb 1.1 % (0.0-3.9); FMetHb 0.2 % (0.0-1.5); FO2Hb 98.4 % (94-97); GLUCOSE (ABG) 139 mg/dl (70-105); IONIZED CA (ABG) 1.06 mmol/L (1.10-1.43); K (ABG) 3.8 mmol/L (3.5-5.0); TOTAL HEMOGLOBIN 7.9 G/dl (14.0-18.0)
[2021-10-29 16:00] LABS: ABG BASE EXCESS -3.7 mmol/L (-2.0-2.0); ABG HCO3 21.2 mmol/L (22.0-26.0); ABG OXYGEN SATURATION 99.7 % (94-97); ABG PCO2 37.3 mmHg (35.0-48.0); ABG PO2 314.8 mmHg (75.0-100.0); CL (ABG) 110 mmol/L (98-110); FCOHb 1.2 % (0.0-3.9); FMetHb 0.1 % (0.0-1.5); FO2Hb 98.4 % (94-97); GLUCOSE (ABG) 137 mg/dl (70-105); IONIZED CA (ABG) 1.55 mmol/L (1.10-1.43); K (ABG) 3.6 mmol/L (3.5-5.0); TOTAL HEMOGLOBIN 7.4 G/dl (14.0-18.0)
[2021-10-29 16:34] LABS: ABG BASE EXCESS VENOUS -2.5 mmol/L (-2.0 - 2.0); ABG HCO3 VENOUS 22.1 mmol/L (21.0-28.0); ABG PCO2 VENOUS 37.2 mmHg (41.0-54.0); ABG PO2 VENOUS 49.9 mmHg (25.0-35.0); CL (ABG) 111 mmol/L (98-110); FCOHb VENOUS 1.2 %; FMetHb VENOUS 0.3 % (0.0 - 0.5); FO2Hb VENOUS 84.5 %; GLUCOSE (ABG) 147 mg/dl (70-105); IONIZED CA (ABG) 1.17 mmol/L (1.10-1.43); K (ABG) 3.7 mmol/L (3.5-5.0)
[2021-10-29 16:37] LABS: ACTIVATED CLOTTING TIME 135 SEC (101-148)
[2021-10-29] MEDS ORDERED: magnesium 2GM in 50ml NS 50 ML IV PRN ×2 (16:55→18:35)
[2021-10-29] MEDS ORDERED: dextrose 50%-water 50ml dispensing syringe IV PRN (16:55)
[2021-10-29] MEDS: sodium chloride 0.45% 1,000 ML IV SCH (16:55)
[2021-10-29] MEDS ORDERED: normal saline 250ml IV soln 250 ML IV PRN (16:55)
[2021-10-29] MEDS ORDERED: magnesium citrate 296ml oral solution PO PRN (16:55)
[2021-10-29] MEDS ORDERED: sodium phosphate inj. 15 MMOL in dextrose 5%-water 250 ML IV PRN (16:55)
[2021-10-29] MEDS ORDERED: bisacodyl 10mg suppository rectal RC PRN (16:55)
[2021-10-29] MEDS ORDERED: potassium Cl 20 mEq SR tablet PO PRN ×2 (16:55→18:35)
[2021-10-29] MEDS ORDERED: morphine 4 MG/ML inj SYRINge IV PRN (16:55)
[2021-10-29] MEDS ORDERED: magnesium 4gm in 100ml NS 100 ML IV PRN ×2 (16:55→18:35)
[2021-10-29] MEDS ORDERED: ondansetron/PF 4mg/2ml inj IV PRN (16:55)
[2021-10-29] MEDS ORDERED: magnesium hydroxide 30ml (MOM) UD suspension PO PRN (16:55)
[2021-10-29] MEDS: Insulin Reg/NS 100units/100mL 100 ML IV SCH (16:55)
[2021-10-29] MEDS ORDERED: nitroGLYCERIN-Tridil 50MG/D5W 250 ML IV PRN (16:55)
[2021-10-29] MEDS ORDERED: sodium phosphate inj. 30 MMOL in dextrose 5%-water 250 ML IV PRN (16:55)
[2021-10-29] MEDS ORDERED: potassium Cl 20mEq/100mL bag 100 ML IV PRN (16:55)
[2021-10-29] MEDS ORDERED: insulin glargine (Lantus) pen - multi-dose SQ PRN (16:55)
[2021-10-29] MEDS ORDERED: potassium CL 10mEq/100ml bag 100 ML IV PRN ×2 (16:55→18:35)
[2021-10-29] MEDS ORDERED: DOPamine 400mg/D5W 250ml 250 ML IV PRN (16:55)
[2021-10-29] MEDS ORDERED: metoclopramide 5 mg/ml inj IV PRN (16:55)
[2021-10-29] MEDS ORDERED: mineral oil 133ml enema RC PRN (16:55)
[2021-10-29] MEDS ORDERED: niCARDipine-NS 40mg/200ml IVPB 200 ML IV PRN (16:55)
[2021-10-29] MEDS ORDERED: acetaminophen 325mg tablet PO PRN ×2 (16:55)
[2021-10-29] MEDS ORDERED: Neutra Phos packet PO PRN (16:55)
[2021-10-29] MEDS ORDERED: morphine 2 MG/ML inj. syringe IV PRN (16:55)
[2021-10-29] MEDS ORDERED: propofol inj 20 ML IV ONE (17:03)
[2021-10-29] MEDS ORDERED: rocuronium 10mg/ml inj IV ONE ×3 (17:03)
--- NOTE | 2021-10-29 17:30 | NUR ---
Received to room 2013, accompanied by MDs and surgical crew. Placed on ventilator, to playground monitor, arterial line and PA line pressure monitored. Chest tubes to suction at 20 cm. Hayden cath to gravity drainage. Dressings are dry and intact. See assessment record. All vasoactive drugs are infusing via central line.
[2021-10-29 17:39] LABS: ABG BASE EXCESS -3.8 mmol/L (-2.0-2.0); ABG HCO3 21.3 mmol/L (22.0-26.0); ABG OXYGEN SATURATION 97.1 % (94-97); ABG PCO2 (T) 38.6 mmHg (35.0-48.0); ABG PO2 (T) 98.4 mmHg (75.0-100.0); FCOHb 0.3 % (0.0-3.9); FMetHb 0.5 % (0.0-1.5); FO2Hb 96.3 % (94-97); PEEP 5 cm H2O; RESPIRATORY RATE 12 b/min; TIDAL VOLUME 500 mL; TOTAL HEMOGLOBIN 9.6 G/dl (14.0-18.0)
[2021-10-29 18:01] LABS: BASOPHILS # (AUTO) 0.1 X10'3 (0-0.2); BASOPHILS % (AUTO) 0.3 % (0-1); EOSINOPHILS # (AUTO) 0.1 X10'3 (0-0.9); EOSINOPHILS % (AUTO) 0.6 % (0-6); HEMOGLOBIN 8.5 g/dl (14.0-17.9); LYMPHOCYTES # (AUTO) 0.8 X10'3 (1.1-4.8); LYMPHOCYTES % (AUTO) 4.3 % (21-51); MEAN CORPUSCULAR HEMOGLOBIN 26.1 PG (27.0-31.0); MEAN CORPUSCULAR HGB CONC 31.3 g/dL (33.0-36.5); MEAN CORPUSCULAR VOLUME 83.3 FL (78-98); MEAN PLATELET VOLUME 8.9 FL (7.4-10.4); MONOCYTES # (AUTO) 0.7 X10'3 (0-0.9); MONOCYTES % (AUTO) 3.7 % (2-12); NEUTROPHILS # (AUTO) 17.6 X10'3 (1.8-7.7); NEUTROPHILS % (AUTO) 91.1 % (42-75); PLATELET COUNT 195 X10'3 (140-440); RED BLOOD COUNT 3.25 X10'6 (4.70-6.10); RED CELL DISTRIBUTION WIDTH 16.8 % (11.5-14.5); WHITE BLOOD COUNT 19.3 X10'3 (4.5-11.0)
[2021-10-29 18:10] LABS: APTT 30 SECONDS (22-32)
--- NOTE | 2021-10-29 18:15 | NUR ---
Patient report given to Jalil BAKER with all questions answered.
[2021-10-29 18:21] LABS: ALANINE AMINOTRANSFERASE 39 U/L (12-78); ALBUMIN 2.9 G/DL (3.4-5.0); ALBUMIN/GLOBULIN RATIO 1.1 (1.1-1.5); ALKALINE PHOSPHATASE 111 IU/L (46-116); ANION GAP 11 (8-16); ASPARTATE AMINO TRANSFERASE 39 U/L (10-37); BILIRUBIN,TOTAL 0.6 MG/DL (0.1-1.0); BLOOD UREA NITROGEN 17 MG/DL (7-18); BUN/CREATININE RATIO 12.1 (5.4-32.0); CALCIUM 8.2 MG/DL (8.5-10.1); CHLORIDE 113 MMOL/L (99-107); GLUCOSE 159 MG/DL (70-104); MAGNESIUM 1.7 MG/DL (1.5-2.4); PHOSPHORUS 2.6 MG/DL (2.3-4.5); POTASSIUM 3.1 MMOL/L (3.5-5.1); SODIUM 147 MMOL/L (135-145); TOTAL CARBON DIOXIDE 22.9 MMOL/L (24-32); TOTAL PROTEIN 5.6 G/DL (6.4-8.2); eGFR 51 ML/MIN
[2021-10-29] MEDS: potassium Cl 20mEq/100mL bag 100 ML IV PRN ×2 (18:50→20:16)
[2021-10-29] MEDS: albumin (Human) 5% 250ml 250 ML IV PRN ×2 (19:59→22:05)
[2021-10-29] MEDS: sennosides/docusate sodium tablet PO SCH (20:00)
[2021-10-29] MEDS: gabapentin 300mg capsule PO SCH (21:00)
[2021-10-29] MEDS: atorvastatin 10mg tablet PO SCH (21:00)
[2021-10-29] MEDS: vancomycin/NS 1 GM ADD-VANTAGE 250 ML IV SCH (21:45)
[2021-10-29 22:54] LABS: BASOPHILS % (AUTO) 0.1 % (0-1); EOSINOPHILS % (AUTO) 0 % (0-6); LYMPHOCYTES # (AUTO) 0.6 X10'3 (1.1-4.8); LYMPHOCYTES % (AUTO) 3.5 % (21-51); MEAN CORPUSCULAR HEMOGLOBIN 26.1 PG (27.0-31.0); MEAN CORPUSCULAR HGB CONC 31.2 g/dL (33.0-36.5); MEAN CORPUSCULAR VOLUME 83.7 FL (78-98); MEAN PLATELET VOLUME 9.1 FL (7.4-10.4); MONOCYTES # (AUTO) 0.6 X10'3 (0-0.9); MONOCYTES % (AUTO) 3.5 % (2-12); NEUTROPHILS # (AUTO) 17.1 X10'3 (1.8-7.7); NEUTROPHILS % (AUTO) 92.9 % (42-75); PLATELET COUNT 197 X10'3 (140-440); RED BLOOD COUNT 2.46 X10'6 (4.70-6.10); RED CELL DISTRIBUTION WIDTH 16.6 % (11.5-14.5); WHITE BLOOD COUNT 18.4 X10'3 (4.5-11.0)
[2021-10-29 22:58] LABS: HEMATOCRIT 20.6 % (42.0-52.0); HEMOGLOBIN 6.4 g/dl (14.0-17.9)
[2021-10-29 23:02] LABS: APTT 37 SECONDS (22-32)
[2021-10-29 23:09] LABS: ALANINE AMINOTRANSFERASE 32 U/L (12-78); ALBUMIN 2.7 G/DL (3.4-5.0); ALBUMIN/GLOBULIN RATIO 1.2 (1.1-1.5); ALKALINE PHOSPHATASE 83 IU/L (46-116); ANION GAP 12 (8-16); ASPARTATE AMINO TRANSFERASE 33 U/L (10-37); BILIRUBIN,TOTAL 0.5 MG/DL (0.1-1.0); BLOOD UREA NITROGEN 19 MG/DL (7-18); BUN/CREATININE RATIO 11.7 (5.4-32.0); CALCIUM 7.8 MG/DL (8.5-10.1); CHLORIDE 115 MMOL/L (99-107); CREATININE 1.62 MG/DL (0.60-1.10); GLUCOSE 152 MG/DL (70-104); MAGNESIUM 2.3 MG/DL (1.5-2.4); PHOSPHORUS 2.1 MG/DL (2.3-4.5); POTASSIUM 3.4 MMOL/L (3.5-5.1); SODIUM 149 MMOL/L (135-145); TOTAL CARBON DIOXIDE 21.8 MMOL/L (24-32); TOTAL PROTEIN 4.9 G/DL (6.4-8.2); eGFR 43 ML/MIN
--- NOTE | 2021-10-29 23:28 | NUR ---
Spoke to Dr. Andrews , regarding pts hemiglobin of 6.4 and hematocrit of 20.6, pts heart rate of 60, pt on 0.2 of Levophed, reviewed chest tube outputs, urine outputs as well. New orders to Wilfrido pace pt at a rate of 80 bpm, transfuse 2 units of PRBC.
[2021-10-30] VITALS (44 sets, daily range): BP systolic 86–139; BP diastolic 44–66
[2021-10-30] MEDS ORDERED: albumin (Human) 5% 250ml 250 ML IV ONE ×4 (00:45→08:40)
[2021-10-30] MEDS: potassium Cl 20mEq/100mL bag 100 ML IV PRN ×4 (01:07→16:03)
[2021-10-30] MEDS: ceFAZolin/D5W- 1GM premix 50 ML IV SCH ×3 (01:50→16:10)
[2021-10-30] MEDS ORDERED: NORepinephrine 8mg/ 250ml NS 250 ML IV PRN (02:30)
[2021-10-30 03:30] LABS: ABG BASE EXCESS -5.3 mmol/L (-2.0-2.0); ABG HCO3 18.5 mmol/L (22.0-26.0); ABG OXYGEN SATURATION 98.6 % (94-97); ABG PCO2 (T) 27.7 mmHg (35.0-48.0); ABG PO2 (T) 170.8 mmHg (75.0-100.0); FCOHb 0.3 % (0.0-3.9); FMetHb 0.5 % (0.0-1.5); FO2Hb 97.8 % (94-97); PATIENT TEMPERATURE 36.2; PEEP 5 cm H2O; RESPIRATORY RATE 12 b/min; TIDAL VOLUME 500 mL; TOTAL HEMOGLOBIN 7.4 G/dl (14.0-18.0)
--- NOTE | 2021-10-30 03:30 | NUR ---
hemoglobin recheck after the 2 units of blood was 6.8, Dr wells was notified of this along with increasing levophed along with falling cardiac indices dropping to 1.4 and then to 1.2. and the excessive bleeding of the chest tubes. He ordered 2 more units of blood along with 1 unit of platlets.
[2021-10-30 03:48] LABS: BASOPHILS % (AUTO) 0.1 % (0-1); EOSINOPHILS % (AUTO) 0 % (0-6); LYMPHOCYTES % (AUTO) 6.3 % (21-51); MEAN CORPUSCULAR HEMOGLOBIN 27.5 PG (27.0-31.0); MEAN PLATELET VOLUME 8.8 FL (7.4-10.4); MONOCYTES # (AUTO) 0.5 X10'3 (0-0.9); MONOCYTES % (AUTO) 3.5 % (2-12); NEUTROPHILS # (AUTO) 13.9 X10'3 (1.8-7.7); NEUTROPHILS % (AUTO) 90.1 % (42-75); PLATELET COUNT 243 X10'3 (140-440); RED BLOOD COUNT 2.49 X10'6 (4.70-6.10); RED CELL DISTRIBUTION WIDTH 15.1 % (11.5-14.5); WHITE BLOOD COUNT 15.4 X10'3 (4.5-11.0)
[2021-10-30 03:52] LABS: ALANINE AMINOTRANSFERASE 27 U/L (12-78); ALBUMIN 2.8 G/DL (3.4-5.0); ALBUMIN/GLOBULIN RATIO 1.5 (1.1-1.5); ALKALINE PHOSPHATASE 65 IU/L (46-116); ANION GAP 12 (8-16); ASPARTATE AMINO TRANSFERASE 30 U/L (10-37); BILIRUBIN,TOTAL 0.5 MG/DL (0.1-1.0); BLOOD UREA NITROGEN 22 MG/DL (7-18); BUN/CREATININE RATIO 11.5 (5.4-32.0); CALCIUM 7.8 MG/DL (8.5-10.1); CHLORIDE 115 MMOL/L (99-107); CREATININE 1.91 MG/DL (0.60-1.10); GLUCOSE 181 MG/DL (70-104); MAGNESIUM 2.4 MG/DL (1.5-2.4); PHOSPHORUS 2.8 MG/DL (2.3-4.5); POTASSIUM 3.8 MMOL/L (3.5-5.1); SODIUM 150 MMOL/L (135-145); TOTAL CARBON DIOXIDE 23.3 MMOL/L (24-32); TOTAL PROTEIN 4.7 G/DL (6.4-8.2); eGFR 35 ML/MIN
[2021-10-30 03:56] LABS: HEMATOCRIT 21.4 % (42.0-52.0); HEMOGLOBIN 6.8 g/dl (14.0-17.9)
[2021-10-30 04:13] LABS: APTT 27 SECONDS (22-32)
[2021-10-30] MEDS ORDERED: LIDOcaine 2% 10ml TOPICAL JELLY (Urojet) TP ONE (05:00)
[2021-10-30] MEDS: gabapentin 300mg capsule PO SCH ×3 (07:25→20:57)
[2021-10-30] MEDS: metoprolol tartrate 12.5mg (1/2 tablet) PO SCH ×2 (08:00→20:00)
[2021-10-30] MEDS: sennosides/docusate sodium tablet PO SCH ×2 (08:00→20:58)
[2021-10-30] MEDS: POTASSIUM BICARB 20meq eff tab 20 MEQ TABLET.EFF PO SCH ×2 (08:00→20:57)
[2021-10-30] MEDS: aspirin 81mg tab.chew PO SCH (08:04)
[2021-10-30] MEDS: HYDROcodone/acetaminophen 10/325mg tab PO PRN ×5 (08:05→23:55)
[2021-10-30] MEDS: LIDOcaine 5% patch TP SCH (08:05)
[2021-10-30] MEDS: sodium bicarbonate (8.4%) inj. 150 MEQ in dextrose 5%-water 1,000 ML IV SCH ×2 (08:13→19:42)
[2021-10-30] MEDS: mupirocin 2% nasal ointment 1gm UD NS SCH ×2 (08:15→20:57)
[2021-10-30 08:23] LABS: HEMATOCRIT 26.6 % (42.0-52.0); HEMOGLOBIN 8.7 g/dl (14.0-17.9); MEAN CORPUSCULAR HEMOGLOBIN 28.8 PG (27.0-31.0); MEAN CORPUSCULAR HGB CONC 32.7 g/dL (33.0-36.5); MEAN CORPUSCULAR VOLUME 87.9 FL (78-98); MEAN PLATELET VOLUME 8.6 FL (7.4-10.4); PLATELET COUNT 172 X10'3 (140-440); RED BLOOD COUNT 3.03 X10'6 (4.70-6.10); RED CELL DISTRIBUTION WIDTH 15.8 % (11.5-14.5)
[2021-10-30] MEDS: vancomycin/NS 1 GM ADD-VANTAGE 250 ML IV SCH ×2 (08:29→20:55)
[2021-10-30] MEDS: multivitamins, therapeutics tablet PO SCH (08:29)
[2021-10-30 08:35] LABS: ALANINE AMINOTRANSFERASE 24 U/L (12-78); ALBUMIN/GLOBULIN RATIO 1.7 (1.1-1.5); ALKALINE PHOSPHATASE 58 IU/L (46-116); ANION GAP 13 (8-16); ASPARTATE AMINO TRANSFERASE 32 U/L (10-37); BILIRUBIN,TOTAL 0.5 MG/DL (0.1-1.0); BLOOD UREA NITROGEN 23 MG/DL (7-18); BUN/CREATININE RATIO 12.3 (5.4-32.0); CALCIUM 7.5 MG/DL (8.5-10.1); CHLORIDE 115 MMOL/L (99-107); CREATININE 1.87 MG/DL (0.60-1.10); GLUCOSE 134 MG/DL (70-104); POTASSIUM 3.6 MMOL/L (3.5-5.1); SODIUM 150 MMOL/L (135-145); TOTAL CARBON DIOXIDE 21.8 MMOL/L (24-32); TOTAL PROTEIN 4.8 G/DL (6.4-8.2); eGFR 36 ML/MIN
--- NOTE | 2021-10-30 08:37 | NUR ---
Called Dr. Andrews with lab and cardiac out put follow up, informed him of the H/H of 8.7 and 26.6, urine output 60-70 mls/hr ci of 1.8 and co of 3.3. New orders, albumin 5% in 250. Hold blood transfusion for now
[2021-10-30 13:07] LABS: BASOPHILS % (AUTO) 0 % (0-1); EOSINOPHILS % (AUTO) 0 % (0-6); HEMATOCRIT 22.1 % (42.0-52.0); HEMOGLOBIN 7.2 g/dl (14.0-17.9); LYMPHOCYTES # (AUTO) 1.3 X10'3 (1.1-4.8); LYMPHOCYTES % (AUTO) 5.4 % (21-51); MEAN CORPUSCULAR HEMOGLOBIN 28.6 PG (27.0-31.0); MEAN CORPUSCULAR HGB CONC 32.7 g/dL (33.0-36.5); MEAN CORPUSCULAR VOLUME 87.5 FL (78-98); MEAN PLATELET VOLUME 9.1 FL (7.4-10.4); MONOCYTES # (AUTO) 1.3 X10'3 (0-0.9); MONOCYTES % (AUTO) 5.3 % (2-12); NEUTROPHILS # (AUTO) 21.7 X10'3 (1.8-7.7); NEUTROPHILS % (AUTO) 89.3 % (42-75); PLATELET COUNT 147 X10'3 (140-440); RED BLOOD COUNT 2.53 X10'6 (4.70-6.10); RED CELL DISTRIBUTION WIDTH 15.4 % (11.5-14.5); WHITE BLOOD COUNT 24.3 X10'3 (4.5-11.0)
[2021-10-30 13:47] LABS: ANISOCYTOSIS FEW; PLATELET ESTIMATE NORMAL; POIKILOCYTOSIS FEW; TOTAL CELLS COUNTED 100
[2021-10-30] MEDS ORDERED: furosemide 40mg/4ml inj IV ONE (14:35)
[2021-10-30] MEDS ORDERED: desmopressin inj. 20 MCG in normal saline 100ml IV soln 95 ML IV ONE (15:00)
--- NOTE | 2021-10-30 15:00 | NUR ---
Dr Dale by to round on patient, new orders; transfuse 1 unit prbc now , 1 pack platelet, 1 pack cryo, and 40meq lasix recheck h/h 4 hours post transfusion. Wean levo as tolerated maintain map greater than 60
[2021-10-30 16:10] LABS: ABG BASE EXCESS -6.1 mmol/L (-2.0-2.0); ABG HCO3 18.7 mmol/L (22.0-26.0); ABG OXYGEN SATURATION 93.5 % (94-97); ABG PCO2 (T) 33.6 mmHg (35.0-48.0); ABG PO2 (T) 70.9 mmHg (75.0-100.0); FCOHb 0.3 % (0.0-3.9); FLOW 2 L/min; FMetHb 0.4 % (0.0-1.5); FO2Hb 92.8 % (94-97)
--- NOTE | 2021-10-30 17:47 | NUR ---
Dr Dale called to follow up on patient informed him the chest tube output has slowed to between 40-80 mls/hr , ordered ultra sound carotid for morning, Per Dr. Dale if there is any neuro changes call him palomo.
--- NOTE | 2021-10-30 18:27 | NUR ---
Problems reprioritized. Patient report given, questions answered & plan of care reviewed with Talia BAKER.
--- NOTE | 2021-10-30 18:30 | NUR ---
Patient in room CICU 2013. I have received report from OLIVIA Bautista and had the opportunity to ask questions and assume patient care.
[2021-10-30] MEDS: atorvastatin 10mg tablet PO SCH (20:57)
[2021-10-30] MEDS: insulin Lispro (HumaLOG) vial - multi-dose SQ SCH (20:58)
--- NOTE | 2021-10-30 21:19 | NUR ---
Dr Dale updated on patient condition, he would like back a call if hgb lower than 8.
[2021-10-30 22:15] LABS: HEMOGLOBIN 7.2 g/dl (14.0-17.9); MEAN CORPUSCULAR HEMOGLOBIN 28.1 PG (27.0-31.0); MEAN CORPUSCULAR HGB CONC 32.9 g/dL (33.0-36.5); MEAN CORPUSCULAR VOLUME 85.5 FL (78-98); PLATELET COUNT 151 X10'3 (140-440); RED BLOOD COUNT 2.58 X10'6 (4.70-6.10); RED CELL DISTRIBUTION WIDTH 16.5 % (11.5-14.5); WHITE BLOOD COUNT 21.8 X10'3 (4.5-11.0)
[2021-10-30 22:19] LABS: ALBUMIN 2.9 G/DL (3.4-5.0); ANION GAP 15 (8-16); BLOOD UREA NITROGEN 27 MG/DL (7-18); BUN/CREATININE RATIO 13.8 (5.4-32.0); CALCIUM 7.4 MG/DL (8.5-10.1); CHLORIDE 110 MMOL/L (99-107); CREATININE 1.95 MG/DL (0.60-1.10); GLUCOSE 211 MG/DL (70-104); MAGNESIUM 1.7 MG/DL (1.5-2.4); PHOSPHORUS 4.5 MG/DL (2.3-4.5); POTASSIUM 4.1 MMOL/L (3.5-5.1); SODIUM 147 MMOL/L (135-145); TOTAL CARBON DIOXIDE 22.1 MMOL/L (24-32); eGFR 35 ML/MIN
--- NOTE | 2021-10-30 22:55 | NUR ---
Dr. Dale called about H/H, 7.07/05. ordered 1 unit of PRBC and would like to keep 2 units ahead. He was also notified that a repeat LA was 4.1, MD would like to keep the bicarb gtt at this time and would like to decrease rate from 100 to 50 mls/hr. would like a cxr, labs, and abg in the morning. will continue to monitor.
[2021-10-31] VITALS (26 sets, daily range): BP systolic 90–126; BP diastolic 49–65
[2021-10-31] MEDS: ceFAZolin/D5W- 1GM premix 50 ML IV SCH ×2 (00:34→08:38)
[2021-10-31] MEDS: Insulin Reg/NS 100units/100mL 100 ML IV SCH (01:36)
[2021-10-31 03:49] LABS: BASOPHILS % (AUTO) 0.1 % (0-1); EOSINOPHILS % (AUTO) 0 % (0-6); HEMATOCRIT 24.7 % (42.0-52.0); HEMOGLOBIN 8.3 g/dl (14.0-17.9); LYMPHOCYTES # (AUTO) 1.3 X10'3 (1.1-4.8); LYMPHOCYTES % (AUTO) 6.6 % (21-51); MEAN CORPUSCULAR HEMOGLOBIN 28.6 PG (27.0-31.0); MEAN CORPUSCULAR HGB CONC 33.6 g/dL (33.0-36.5); MEAN PLATELET VOLUME 9.2 FL (7.4-10.4); MONOCYTES # (AUTO) 1.8 X10'3 (0-0.9); MONOCYTES % (AUTO) 9.3 % (2-12); NEUTROPHILS # (AUTO) 16.4 X10'3 (1.8-7.7); PLATELET COUNT 123 X10'3 (140-440); RED BLOOD COUNT 2.91 X10'6 (4.70-6.10); RED CELL DISTRIBUTION WIDTH 15.9 % (11.5-14.5); WHITE BLOOD COUNT 19.5 X10'3 (4.5-11.0)
[2021-10-31 03:50] LABS: ABG BASE EXCESS -1.4 mmol/L (-2.0-2.0); ABG HCO3 21.8 mmol/L (22.0-26.0); ABG OXYGEN SATURATION 93.2 % (94-97); ABG PCO2 (T) 30.1 mmHg (35.0-48.0); ABG PO2 (T) 63.2 mmHg (75.0-100.0); FCOHb 0.3 % (0.0-3.9); FLOW 2 L/min; FMetHb 0.4 % (0.0-1.5); FO2Hb 92.5 % (94-97); PATIENT TEMPERATURE 36.6
[2021-10-31 04:03] LABS: APTT 27 SECONDS (22-32)
[2021-10-31 04:06] LABS: ALBUMIN 2.9 G/DL (3.4-5.0); ANION GAP 8 (8-16); BLOOD UREA NITROGEN 29 MG/DL (7-18); CALCIUM 7.9 MG/DL (8.5-10.1); CHLORIDE 107 MMOL/L (99-107); CREATININE 1.93 MG/DL (0.60-1.10); GLUCOSE 183 MG/DL (70-104); MAGNESIUM 2.9 MG/DL (1.5-2.4); POTASSIUM 4.1 MMOL/L (3.5-5.1); SODIUM 142 MMOL/L (135-145); TOTAL CARBON DIOXIDE 27.3 MMOL/L (24-32); eGFR 35 ML/MIN
[2021-10-31] MEDS: HYDROcodone/acetaminophen 10/325mg tab PO PRN ×3 (05:50→20:39)
--- NOTE | 2021-10-31 06:11 | NUR ---
Problems reprioritized. Patient report given, questions answered & plan of care reviewed with OLIVIA Bautista.
--- NOTE | 2021-10-31 06:52 | NUR ---
Patient in room CICU 2013. I have received report from Talia Ballard and had the opportunity to ask questions and assume patient care.
--- NOTE | 2021-10-31 07:57 | NUR ---
Rounded with Darion Carmen, feed patient and walk patient
[2021-10-31] MEDS: LIDOcaine 5% patch TP SCH (08:00)
[2021-10-31] MEDS: metoprolol tartrate 12.5mg (1/2 tablet) PO SCH (08:00)
[2021-10-31] MEDS: POTASSIUM BICARB 20meq eff tab 20 MEQ TABLET.EFF PO SCH ×2 (08:00→20:39)
--- NOTE | 2021-10-31 08:09 | NUR ---
Per Valeriy Ojeda/Woody phillips, wean levo as tolerated, stop bicarb drip and get bmp in afternoon
[2021-10-31] MEDS: aspirin 81mg tab.chew PO SCH (08:38)
[2021-10-31] MEDS: gabapentin 300mg capsule PO SCH ×2 (08:38→13:35)
[2021-10-31] MEDS: sennosides/docusate sodium tablet PO SCH ×2 (08:39→20:39)
[2021-10-31] MEDS: multivitamins, therapeutics tablet PO SCH (08:39)
[2021-10-31] MEDS: pantoprazole 40mg Tablet.DR PO SCH (08:39)
[2021-10-31] MEDS: insulin glargine (Lantus) pen - multi-dose SQ SCH (08:46)
[2021-10-31] MEDS: insulin Lispro (HumaLOG) vial - multi-dose SQ SCH ×4 (08:47→20:46)
[2021-10-31] MEDS: mupirocin 2% nasal ointment 1gm UD NS SCH (08:47)
[2021-10-31 10:03] LABS: TOTAL HEMOGLOBIN 5.9 G/dl (14.0-18.0)
--- NOTE | 2021-10-31 12:02 | NUR ---
Initial: Pt admit DX CAD and CKD III will require life long K and bicarb supplementation post-op day 2 s/p CABGx4 this admit per EMR. Pt PO 75-100% initial meals pre-op s/p extubation 10/29 w/ no subsequent PO intake documentation per EMR. Pt PO 100% breakfast this AM on NCS diet per RN; receiving MM5/thin modification per pt request. Pt seen by RD for written/verbal high protein/HH diet eds w/ RD contact information provided. Pt reports uses protein supplementation at home though sometimes in replacement for meal; RD encouraged and reviewed high protein snack options. Pt is agreeable to strawberry James smoothie BIDBL for wound healing; PA notified. Per RN pt only chewing meds not swallowing on MM5; LIA d/w pt who reports recent issue not having full dentures yet impacting swallowing is agreeable to GRADES 6 THROUGH 8 TEACHER BSS this admit; PA notified. Pt questions regarding MM5 texture modification if to continue at home; RD provided verbal education on MM5 food preparation strategies. Noted pt A1C 6.7% this admit however no prior hx DM or home meds listed in EMR and pt unaware of DM status per RN this AM. RD d/w RN regarding pt notification of DM prior to discharge if physician agreeable; unable to provide DM ed until pt made aware by physician. LBM 10/28 receiving routine colace. Will continue to monitor for further nutrition intervention needs this admit. Rec: 1. continue NCS/MM5 diet per pt request; texture modification per GRADES 6 THR[employer] 8 TEACHER recs. Consider carb controlled restriction IF PO intake remains adequate post-op 2. strawberry James smoothie BIDBL for wound healing 3. routine bowel care 4. weekly wts 5. DM ed once pt made aware of DM onset by physician prior to discharge; A1C 6.7% no prior hx DM per EMR Addendum: 10/31/21 at [address] Amended: Links added.
[2021-10-31] MEDS: JUVEN Smoothie Arginine/Glut./Ca2+Bmb (Juven 19.3pkt) 240ml cup PO SCH (12:30)
[2021-10-31] MEDS: sodium bicarbonate (8.4%) inj. 150 MEQ in dextrose 5%-water 1,000 ML IV SCH (14:25)
[2021-10-31] MEDS: sodium chloride 0.45% 1,000 ML IV SCH (17:21)
[2021-10-31 17:43] LABS: ANION GAP 10 (8-16); BLOOD UREA NITROGEN 32 MG/DL (7-18); BUN/CREATININE RATIO 17.3 (5.4-32.0); CALCIUM 7.9 MG/DL (8.5-10.1); CHLORIDE 108 MMOL/L (99-107); CREATININE 1.85 MG/DL (0.60-1.10); GLUCOSE 117 MG/DL (70-104); POTASSIUM 3.9 MMOL/L (3.5-5.1); SODIUM 143 MMOL/L (135-145); TOTAL CARBON DIOXIDE 24.8 MMOL/L (24-32); eGFR 37 ML/MIN
--- NOTE | 2021-10-31 17:50 | NUR ---
called Dr Dale updated him on his current status , informed him his levo has been off for an hour, his total chest tube out was 350 all shift and that his venous bicarb is 24.8. no new orders at this time
--- NOTE | 2021-10-31 18:21 | NUR ---
Problems reprioritized. Patient report given, questions answered & plan of care reviewed with Talia BAKER.
--- NOTE | 2021-10-31 18:30 | NUR ---
Patient in room CICU 2013. I have received report from OLIVIA Bautista and had the opportunity to ask questions and assume patient care.
--- NOTE | 2021-10-31 20:34 | NUR ---
Dr. Dale called about patient's lopressor. Patient off Levo at 1700 and BP is within limits to give lopressor at this time with a bp at 123/66. However, due to levo only being off for a short while MD was called for clarification. cancelled order altogether.
[2021-10-31] MEDS: sodium bicarbonate 650mg tablet PO SCH (20:39)
[2021-10-31] MEDS: atorvastatin 10mg tablet PO SCH (20:39)
[2021-11-01] VITALS (24 sets, daily range): BP systolic 88–121; BP diastolic 55–74
--- NOTE | 2021-11-01 01:43 | NUR ---
Dr. Dale notified of patient going into a. fib HR in 120-140s. He ordered an amiodarone gtt without bolus and to be started at 1mg. He would like K checked and replaced if below 4. He also stated that levo may need to be turned back on since BP dropped once he went into a. fib. Will continue to monitor.
[2021-11-01] MEDS: HYDROcodone/acetaminophen 10/325mg tab PO PRN ×4 (02:59→17:01)
[2021-11-01 03:03] LABS: BASOPHILS % (AUTO) 0 % (0-1); EOSINOPHILS % (AUTO) 0 % (0-6); HEMATOCRIT 24.6 % (42.0-52.0); HEMOGLOBIN 8.1 g/dl (14.0-17.9); LYMPHOCYTES # (AUTO) 0.9 X10'3 (1.1-4.8); LYMPHOCYTES % (AUTO) 5.3 % (21-51); MEAN CORPUSCULAR HEMOGLOBIN 28.9 PG (27.0-31.0); MEAN CORPUSCULAR HGB CONC 33.1 g/dL (33.0-36.5); MEAN CORPUSCULAR VOLUME 87.4 FL (78-98); MEAN PLATELET VOLUME 9.8 FL (7.4-10.4); MONOCYTES # (AUTO) 1.2 X10'3 (0-0.9); MONOCYTES % (AUTO) 6.5 % (2-12); NEUTROPHILS # (AUTO) 15.7 X10'3 (1.8-7.7); NEUTROPHILS % (AUTO) 88.2 % (42-75); PLATELET COUNT 94 X10'3 (140-440); RED BLOOD COUNT 2.82 X10'6 (4.70-6.10); RED CELL DISTRIBUTION WIDTH 16.4 % (11.5-14.5); WHITE BLOOD COUNT 17.8 X10'3 (4.5-11.0)
[2021-11-01] MEDS: amiodarone/D5 360MG/200ML BAG 200 ML IV SCH ×4 (03:08→20:21)
[2021-11-01 03:15] LABS: ALANINE AMINOTRANSFERASE 23 U/L (12-78); ALBUMIN 2.7 G/DL (3.4-5.0); ALBUMIN/GLOBULIN RATIO 1.1 (1.1-1.5); ALKALINE PHOSPHATASE 80 IU/L (46-116); ANION GAP 8 (8-16); ASPARTATE AMINO TRANSFERASE 32 U/L (10-37); BILIRUBIN,TOTAL 0.3 MG/DL (0.1-1.0); BLOOD UREA NITROGEN 36 MG/DL (7-18); BUN/CREATININE RATIO 18.8 (5.4-32.0); CALCIUM 7.8 MG/DL (8.5-10.1); CHLORIDE 108 MMOL/L (99-107); CREATININE 1.91 MG/DL (0.60-1.10); GLUCOSE 107 MG/DL (70-104); MAGNESIUM 2.7 MG/DL (1.5-2.4); PHOSPHORUS 3.7 MG/DL (2.3-4.5); POTASSIUM 4.2 MMOL/L (3.5-5.1); SODIUM 143 MMOL/L (135-145); TOTAL CARBON DIOXIDE 27.2 MMOL/L (24-32); TOTAL PROTEIN 5.2 G/DL (6.4-8.2); eGFR 35 ML/MIN
--- NOTE | 2021-11-01 06:11 | NUR ---
Problems reprioritized. Patient report given, questions answered & plan of care reviewed with OLIVIA Bautista.
--- NOTE | 2021-11-01 06:59 | NUR ---
Patient in room CICU 2013. I have received report from Talia BAKER and had the opportunity to ask questions and assume patient care.
[2021-11-01] MEDS: JUVEN Smoothie Arginine/Glut./Ca2+Bmb (Juven 19.3pkt) 240ml cup PO SCH ×2 (07:30→13:15)
[2021-11-01] MEDS: LIDOcaine 5% patch TP SCH (08:00)
[2021-11-01] MEDS: sennosides/docusate sodium tablet PO SCH ×2 (08:13→20:21)
[2021-11-01] MEDS: sodium bicarbonate 650mg tablet PO SCH ×3 (08:13→20:21)
[2021-11-01] MEDS: pantoprazole 40mg Tablet.DR PO SCH (08:13)
[2021-11-01] MEDS: multivitamins, therapeutics tablet PO SCH (08:13)
[2021-11-01] MEDS: POTASSIUM BICARB 20meq eff tab 20 MEQ TABLET.EFF PO SCH ×2 (08:13→20:21)
[2021-11-01] MEDS: insulin glargine (Lantus) pen - multi-dose SQ SCH (08:21)
--- NOTE | 2021-11-01 08:40 | NUR ---
Dr Dale by to round on patient, reviewed labs, meds and chest tube out put, stated that the art line can be removed if the cuff pressure correlates for a few hours. Also stated to give a 150mg bolus of ammio and then keep at 1mg after bolus. Stated that the chest tubes will stay in for another day
[2021-11-01] MEDS: aspirin 81mg tab.chew PO SCH (09:18)
[2021-11-01] MEDS: insulin Lispro (HumaLOG) vial - multi-dose SQ SCH ×4 (09:20→20:22)
[2021-11-01] MEDS ORDERED: amiodarone 150mg/dext, iso-os 100 ML IV ONE (09:35)
[2021-11-01] MEDS ORDERED: ondansetron 4mg rapidly disintigrating tab PO PRN (14:52)
--- NOTE | 2021-11-01 18:30 | NUR ---
Patient in room CICU 2013. I have received report from OLIVIA Bautista and had the opportunity to ask questions and assume patient care.
[2021-11-01] MEDS: atorvastatin 10mg tablet PO SCH (20:21)
[2021-11-02] VITALS (22 sets, daily range): BP systolic 98–186; BP diastolic 51–84
[2021-11-02] MEDS: HYDROcodone/acetaminophen 10/325mg tab PO PRN ×5 (00:51→20:53)
[2021-11-02] MEDS: amiodarone/D5 360MG/200ML BAG 200 ML IV SCH ×2 (01:52→07:39)
[2021-11-02 03:29] LABS: BASOPHILS % (AUTO) 0.1 % (0-1); EOSINOPHILS % (AUTO) 0.2 % (0-6); HEMATOCRIT 25.9 % (42.0-52.0); HEMOGLOBIN 8.4 g/dl (14.0-17.9); LYMPHOCYTES # (AUTO) 1.3 X10'3 (1.1-4.8); LYMPHOCYTES % (AUTO) 8.2 % (21-51); MEAN CORPUSCULAR HEMOGLOBIN 28.4 PG (27.0-31.0); MEAN CORPUSCULAR HGB CONC 32.3 g/dL (33.0-36.5); MEAN CORPUSCULAR VOLUME 88.1 FL (78-98); MEAN PLATELET VOLUME 9.5 FL (7.4-10.4); MONOCYTES # (AUTO) 1.1 X10'3 (0-0.9); MONOCYTES % (AUTO) 6.8 % (2-12); NEUTROPHILS # (AUTO) 13.6 X10'3 (1.8-7.7); NEUTROPHILS % (AUTO) 84.7 % (42-75); PLATELET COUNT 110 X10'3 (140-440); RED BLOOD COUNT 2.95 X10'6 (4.70-6.10); RED CELL DISTRIBUTION WIDTH 16.9 % (11.5-14.5)
[2021-11-02 03:56] LABS: ALANINE AMINOTRANSFERASE 19 U/L (12-78); ALBUMIN 2.5 G/DL (3.4-5.0); ALBUMIN/GLOBULIN RATIO 0.9 (1.1-1.5); ALKALINE PHOSPHATASE 100 IU/L (46-116); ANION GAP 11 (8-16); ASPARTATE AMINO TRANSFERASE 26 U/L (10-37); BILIRUBIN,TOTAL 0.4 MG/DL (0.1-1.0); BLOOD UREA NITROGEN 42 MG/DL (7-18); BUN/CREATININE RATIO 20.3 (5.4-32.0); CALCIUM 7.7 MG/DL (8.5-10.1); CHLORIDE 104 MMOL/L (99-107); CREATININE 2.07 MG/DL (0.60-1.10); GLUCOSE 129 MG/DL (70-104); MAGNESIUM 2.5 MG/DL (1.5-2.4); PHOSPHORUS 3.4 MG/DL (2.3-4.5); POTASSIUM 3.8 MMOL/L (3.5-5.1); SODIUM 140 MMOL/L (135-145); TOTAL PROTEIN 5.2 G/DL (6.4-8.2); eGFR 32 ML/MIN
[2021-11-02] MEDS: potassium Cl 20mEq/100mL bag 100 ML IV PRN ×2 (04:14→05:30)
--- NOTE | 2021-11-02 06:04 | NUR ---
Problems reprioritized. Patient report given, questions answered & plan of care reviewed with OLIVIA Harvey.
--- NOTE | 2021-11-02 06:32 | NUR ---
Patient in room CICU 2013. I have received report from OLIVIA Melgar and had the opportunity to ask questions and assume patient care.
[2021-11-02] MEDS: LIDOcaine 5% patch TP SCH (08:00)
[2021-11-02] MEDS: POTASSIUM BICARB 20meq eff tab 20 MEQ TABLET.EFF PO SCH ×2 (08:00→19:52)
[2021-11-02] MEDS ORDERED: digoxin 250mcg/ml 2ml ampule IV ONE ×3 (08:15→23:30)
[2021-11-02] MEDS ORDERED: amiodarone 200mg tablet PO ONE (08:25)
[2021-11-02] MEDS: JUVEN Smoothie Arginine/Glut./Ca2+Bmb (Juven 19.3pkt) 240ml cup PO SCH ×2 (08:29→13:49)
[2021-11-02] MEDS: sennosides/docusate sodium tablet PO SCH ×2 (08:50→19:51)
[2021-11-02] MEDS: multivitamins, therapeutics tablet PO SCH (08:51)
[2021-11-02] MEDS: pantoprazole 40mg Tablet.DR PO SCH (08:52)
[2021-11-02] MEDS: aspirin 81mg tab.chew PO SCH (08:53)
[2021-11-02] MEDS: sodium bicarbonate 650mg tablet PO SCH ×3 (08:54→19:53)
[2021-11-02] MEDS: insulin Lispro (HumaLOG) vial - multi-dose SQ SCH ×4 (09:58→21:00)
[2021-11-02] MEDS: insulin glargine (Lantus) pen - multi-dose SQ SCH (10:01)
--- NOTE | 2021-11-02 11:02 | NUR ---
Nutrition consult: Pt already seen at bedside for written and verbal post CABG nutrition therapy education, see prior RD assessment. F/u with RN today regarding patient's A1c of 6.7% and need for DM dx by physician prior to RD being able to provide DM education. Will continue to follow. Addendum: 11/02/21 at [address] Amended: Links added.
[2021-11-02] MEDS ORDERED: DEXTROSE 15 GM of carb/4 tabs (each vial/BOTTLE has 4 tablets) PO PRN ×2 (17:25)
[2021-11-02] MEDS ORDERED: dextrose 50%-water 50ml dispensing syringe IV PRN ×2 (17:25)
[2021-11-02] MEDS ORDERED: glucagon, human recombinant 1mg kit SUBCUT PRN (17:25)
--- NOTE | 2021-11-02 18:24 | NUR ---
Problems reprioritized. Patient report given, questions answered & plan of care reviewed with OLIVIA Jimenes.
--- NOTE | 2021-11-02 19:15 | NUR ---
Dr Dale ordered .25 mg IV of Digoxin for now and again 4 hours later to slow down heart rate.
[2021-11-02] MEDS: amiodarone 200mg tablet PO SCH (19:50)
[2021-11-02] MEDS: atorvastatin 10mg tablet PO SCH (19:53)
[2021-11-02] MEDS: enoxaparin 40mg/0.4ml syringe SUBCUT SCH (20:00)
[2021-11-02] MEDS: magnesium Cl slow-release 64mg tablet PO SCH (20:00)
[2021-11-02] MEDS: potassium Cl 20 mEq SR tablet PO SCH (20:00)
--- NOTE | 2021-11-02 20:30 | NUR ---
Report Given to Belkis BAKER on PCU. Pt transferred to PCU floor via Wheel chair with a tele monitor.
[2021-11-03 02:00] VITALS: BP 108/66
[2021-11-03] MEDS: HYDROcodone/acetaminophen 10/325mg tab PO PRN ×3 (02:18→12:09)
[2021-11-03 06:00] VITALS: BP 115/90
--- NOTE | 2021-11-03 06:34 | NUR ---
Received patient report from Belkis BAKER, patient resting comfortably in bed.
[2021-11-03 06:47] LABS: BASOPHILS % (AUTO) 0.1 % (0-1); EOSINOPHILS # (AUTO) 0.3 X10'3 (0-0.9); HEMATOCRIT 28.3 % (42.0-52.0); HEMOGLOBIN 9.1 g/dl (14.0-17.9); LYMPHOCYTES # (AUTO) 1.3 X10'3 (1.1-4.8); MEAN CORPUSCULAR HEMOGLOBIN 28.6 PG (27.0-31.0); MEAN CORPUSCULAR HGB CONC 32.2 g/dL (33.0-36.5); MEAN CORPUSCULAR VOLUME 88.7 FL (78-98); MEAN PLATELET VOLUME 9.1 FL (7.4-10.4); MONOCYTES # (AUTO) 1.7 X10'3 (0-0.9); MONOCYTES % (AUTO) 12.7 % (2-12); NEUTROPHILS # (AUTO) 9.9 X10'3 (1.8-7.7); NEUTROPHILS % (AUTO) 75.2 % (42-75); PLATELET COUNT 138 X10'3 (140-440); RED BLOOD COUNT 3.19 X10'6 (4.70-6.10); RED CELL DISTRIBUTION WIDTH 16.4 % (11.5-14.5); WHITE BLOOD COUNT 13.1 X10'3 (4.5-11.0)
[2021-11-03] MEDS: insulin Lispro (HumaLOG) vial - multi-dose SQ SCH (07:00)
[2021-11-03] MEDS: magnesium Cl slow-release 64mg tablet PO SCH (07:06)
[2021-11-03 07:11] LABS: ALBUMIN 2.4 G/DL (3.4-5.0); ANION GAP 11 (8-16); BLOOD UREA NITROGEN 42 MG/DL (7-18); BUN/CREATININE RATIO 25.5 (5.4-32.0); CALCIUM 7.9 MG/DL (8.5-10.1); CHLORIDE 105 MMOL/L (99-107); CREATININE 1.65 MG/DL (0.60-1.10); GLUCOSE 73 MG/DL (70-104); POTASSIUM 3.6 MMOL/L (3.5-5.1); SODIUM 140 MMOL/L (135-145); TOTAL CARBON DIOXIDE 24.3 MMOL/L (24-32); eGFR 42 ML/MIN
[2021-11-03] MEDS: sodium bicarbonate 650mg tablet PO SCH (07:44)
[2021-11-03] MEDS: multivitamins, therapeutics tablet PO SCH (07:44)
[2021-11-03] MEDS: aspirin 81mg tab.chew PO SCH (07:44)
[2021-11-03] MEDS: amiodarone 200mg tablet PO SCH (07:44)
[2021-11-03] MEDS: pantoprazole 40mg Tablet.DR PO SCH (07:44)
[2021-11-03] MEDS: POTASSIUM BICARB 20meq eff tab 20 MEQ TABLET.EFF PO SCH (07:45)
[2021-11-03] MEDS: potassium Cl 20 mEq SR tablet PO SCH (07:45)
[2021-11-03] MEDS: sennosides/docusate sodium tablet PO SCH (07:45)
[2021-11-03] MEDS: enoxaparin 40mg/0.4ml syringe SUBCUT SCH (07:46)
[2021-11-03] MEDS: JUVEN Smoothie Arginine/Glut./Ca2+Bmb (Juven 19.3pkt) 240ml cup PO SCH (07:47)
[2021-11-03] MEDS: LIDOcaine 5% patch TP SCH (07:51)
[2021-11-03] MEDS ORDERED: magnesium 2GM in 50ml NS 50 ML IV ONE (08:15)
[2021-11-03] MEDS ORDERED: FURO-150 PO (08:46)
[2021-11-03] MEDS ORDERED: sodium bicarbonate tablet PO (08:46)
[2021-11-03] MEDS ORDERED: HYDR-3972 PO (08:46)
[2021-11-03] MEDS ORDERED: POTA10TA37 PO (08:46)
[2021-11-03] MEDS ORDERED: AMIO200T67 PO (08:46)
[2021-11-03] MEDS ORDERED: SODI650T29 PO (08:52)
[2021-11-03 11:00] VITALS: BP 121/64
--- NOTE | 2021-11-03 12:25 | NUR ---
Pt discharged in stable condition. Bilateral IV's discontinued, catheters intact. Pt educated about medications, activity, follow up appointments. Pt verbalized understanding. Pt transported to personal vehicle via wheelchair. Daughter arrived to drive patient home. All belongings sent with patient, and room check performed .
== END 2021-11-03 12:27 | disposition home or self-care (01) | DRG 236 ==
LOC: PCU 3S 10:12 → CICU 2S 10-29 13:41 → PCU 3S 11-02 21:11
PROVIDERS: ADMIT Thoracic Surgery (Cardiothoracic Vascular Surgery); ATTEND Thoracic Surgery (Cardiothoracic Vascular Surgery)
PROC: 021209W Bypass Coronary Artery, Three Arteries from Aorta with Autologous Venous Tissue, Open Approach (ICD-10-PCS; 2021-10-29)
PROC: 06BQ4ZZ Excision of Left Saphenous Vein, Percutaneous Endoscopic Approach (ICD-10-PCS; 2021-10-29)
PROC: 5A1221Z Performance of Cardiac Output, Continuous (ICD-10-PCS; 2021-10-29)
PROC: B24BZZ4 Ultrasonography of Heart with Aorta, Transesophageal (ICD-10-PCS; 2021-10-29)
PROC: 02100Z9 Bypass Coronary Artery, One Artery from Left Internal Mammary, Open Approach (ICD-10-PCS; principal; 2021-10-29 13:26)
PROC: 30233N1 Transfusion of Nonautologous Red Blood Cells into Peripheral Vein, Percutaneous Approach (ICD-10-PCS; 2021-10-30)
PROC: 30233R1 Transfusion of Nonautologous Platelets into Peripheral Vein, Percutaneous Approach (ICD-10-PCS; 2021-10-30)
PROC: 30233M1 Transfusion of Nonautologous Plasma Cryoprecipitate into Peripheral Vein, Percutaneous Approach (ICD-10-PCS; 2021-10-30)
DX: I25.10 Atherosclerotic heart disease of native coronary artery without angina pectoris (principal); I50.22 Chronic systolic (congestive) heart failure; D68.9 Coagulation defect, unspecified; D62 Acute posthemorrhagic anemia; I34.0 Nonrheumatic mitral (valve) insufficiency; Z20.822 Contact with and (suspected) exposure to COVID-19; N18.30 Chronic kidney disease, stage 3 unspecified; N25.89 Other disorders resulting from impaired renal tubular function; E87.6 Hypokalemia; I48.91 Unspecified atrial fibrillation; I73.9 Peripheral vascular disease, unspecified; Z95.5 Presence of coronary angioplasty implant and graft; Z79.899 Other long term (current) drug therapy; Z79.82 Long term (current) use of aspirin; Z87.442 Personal history of urinary calculi
CPT/HCPCS: 36415; 36430; 36600; 71045; 71046; 80048; 80053; 81003; 82330; 82435; 82436; 82570; 82803; 82947; 82948; 83036; 83605; 83735; 84100; 84132; 84133; 84156; 84295; 84300; 85007; 85018; 85025; 85027; 85347; 85384; 85610; 85730; 86885; 86900; 86901; 86920; 87081; 87207; 92508; 92616; 93005; 93306; 93312; 93325; 93971; 94002; 94664; 94668; 94760; 97110; 97116; 97161; 97530; 97535; A4333; A4615; A4618; A6213; A6250; A6258; A6446; A6449; A7000; A7048; C1751; G0378; J0171; J0282; J0690; J1160; J1644; J1650; J1815; J1940; J2150; J2250; J2370; J2440; J2597; J2704; J2720; J2930; J3370; J3475; J3480; J3490; J7030; J7040; J7050; J7070; J7120; P9012; P9016; P9035; P9045; P9047

== ENCOUNTER 2021-11-08 11:42 | Outpatient (CLI) | payer BC ==
[~2021-11-08 11:42] MED LIST changes: +AMIO200T67 PO; +ATEN-27 PO; -ATEN25TA PO; -CLOP75TA34 PO; +FURO-150 PO; +HYDR-3972 PO; +POTA10TA37 PO; +SODI650T29 PO; -[UNRECOGNIZED DRUG - REMARK] PO; -albumin (human) 25% 100 ML IV solution IV ONE; -aminocaproic acid 250 MG/1 ML inj. ONE; -calcium chloride 100 MG/1 ML inj IV ONE; -heparin 10,000 units/1 ML INJ ONE; -mannitol 12.5gm/50mL VIAL IV ONE; -methylPREDNISolone sod succ 1000mg vial ONE; -phenylephrine 10mg/ml inj. ONE; -sodium bicarbonate (8.4%) 1 mEq/ml syringe ONE
== END 2021-11-08 23:59 | disposition home or self-care (01) ==
LOC: RAD 11:42
PROVIDERS: ATTEND Thoracic Surgery (Cardiothoracic Vascular Surgery)
DX: J90 Pleural effusion, not elsewhere classified (principal); R60.9 Edema, unspecified; R91.8 Other nonspecific abnormal finding of lung field; Z98.890 Other specified postprocedural states
CPT/HCPCS: 71046